=== PATIENT | female | born 1935 | race Caucasian/White ===

== ENCOUNTER → 2023-10-19 13:57 | Outpatient (REF) | payer MEDICARE, SELFPAY | LOC: HWRAD 13:57 | PROVIDERS: ATTENDING PHYSICIAN Physician Assistant; FAMILY PHYSICIAN Internal Medicine | DX: E04.1 Nontoxic single thyroid nodule (principal) | CPT/HCPCS: 76536 ==

== ENCOUNTER → 2023-11-04 09:05 | Outpatient (REF) | payer MEDICARE, SELFPAY ==
[2023-11-04 12:51] LABS: HDL Cholesterol 54 mg/dl; LDL Cholesterol, Calculated 105 mg/dl; Total Cholesterol 184 mg/dl (50-199); Triglyceride 128 mg/dl (10-149); Very Low Density Lipoprotein 25 mg/dl (0-30)
== END ==
LOC: HWLAB 09:05
PROVIDERS: ATTENDING PHYSICIAN Internal Medicine
DX: E11.69 Type 2 diabetes mellitus with other specified complication (principal)
CPT/HCPCS: 36415; 80061

== ENCOUNTER → 2023-12-01 08:51 | Outpatient (REF) | payer MEDICARE, SELFPAY ==
[2023-12-01 12:35] LABS: % Basophils 0.2 % (0-2); % Eosinophils 0.1 % (0-6); % Lymphocytes 12.8 % (20.5-51.1); % Monocytes 14.8 % (1.7-9.3); % Neutrophils 71.1 % (42.2-75.2); Absolute Immature Granulocytes 0.1 10^3/uL (0-0.05); Absolute Lymphocytes 1.1 10^3/uL (1.2-3.4); Absolute Monocytes 1.2 10^3/uL (0.1-0.6); Hematocrit 32.4 % (37.0-47.0); Hemoglobin 10.6 g/dL (12.0-16.0); Mean Corp Hgb Conc. 32.7 g/dL (33.0-37.0); Mean Corpuscular Hgb 28.4 pg (27.0-31.0); Mean Corpuscular Volume 86.9 fL (81.0-99.0); Mean Platelet Volume 13.5 fL (7.4-10.4); Nucleated Red Blood Cells % 0 %; Platelet Count 141 10^3/uL (130-400); Red Blood Cell Count 3.73 10^6/uL (4.20-5.40); Red Cell Dist. Width 15.1 % (11.5-14.5); White Blood Cell Count 8.4 10^3/uL (4.8-10.8)
[2023-12-01 13:30] LABS: ALT (SGPT) 18 U/L (0-35); AST (SGOT) 19 U/L (14-36); Albumin 3.6 g/dl (3.5-5.0); Alkaline Phosphatase 79 U/L (38-126); Blood Urea Nitrogen 27 mg/dl (7-17); Carbon Dioxide 25 mmol/L (22-30); Chloride 104 mmol/L (98-107); Glucose 139 mg/dl (70-99); Potassium 3.8 mmol/L (3.5-5.1); Sodium 134 mmol/L (135-145); Total Bilirubin 0.8 mg/dl (0.2-1.3); Total Protein 5.8 g/dl (6.3-8.2); eGFR 43.54
[2023-12-01 13:39] LABS: Free T3 3.55 pg/ml (2.77-5.27); Free T4 1.12 ng/dl (0.78-2.19)
[2023-12-01 13:53] LABS: TSH 4.41 uIU/ml (0.47-4.68)
[2023-12-03 01:40] LABS: Total T3 (Sendout) 105 ng/dL (80-200)
== END ==
LOC: HWLAB 08:51
PROVIDERS: ATTENDING PHYSICIAN Physician Assistant; FAMILY PHYSICIAN Internal Medicine
DX: E11.65 Type 2 diabetes mellitus with hyperglycemia (principal); E05.90 Thyrotoxicosis, unspecified without thyrotoxic crisis or storm
CPT/HCPCS: 36415; 80053; 83036; 84439; 84443; 84480; 84481; 85025

== ENCOUNTER → 2023-12-02 12:37 | Outpatient (REF) | payer MEDICARE, SELFPAY | LOC: WOUND 12:37 | PROVIDERS: ATTENDING PHYSICIAN Surgery; FAMILY PHYSICIAN Internal Medicine | DX: I70.233 Atherosclerosis of native arteries of right leg with ulceration of ankle (principal); L97.322 Non-pressure chronic ulcer of left ankle with fat layer exposed; I87.2 Venous insufficiency (chronic) (peripheral); I73.9 Peripheral vascular disease, unspecified; E11.22 Type 2 diabetes mellitus with diabetic chronic kidney disease; E11.59 Type 2 diabetes mellitus with other circulatory complications; N18.30 Chronic kidney disease, stage 3 unspecified; Z95.5 Presence of coronary angioplasty implant and graft; Z79.01 Long term (current) use of anticoagulants; I44.7 Left bundle-branch block, unspecified; Z79.4 Long term (current) use of insulin | CPT/HCPCS: 11042; 99204 ==

== ENCOUNTER → 2023-12-07 12:03 | Outpatient (REF) | payer MEDICARE, SELFPAY | LOC: WOUND 12:03 | PROVIDERS: ATTENDING PHYSICIAN Surgery; FAMILY PHYSICIAN Internal Medicine | DX: I70.233 Atherosclerosis of native arteries of right leg with ulceration of ankle (principal); L97.322 Non-pressure chronic ulcer of left ankle with fat layer exposed; I87.2 Venous insufficiency (chronic) (peripheral); E11.22 Type 2 diabetes mellitus with diabetic chronic kidney disease; E11.59 Type 2 diabetes mellitus with other circulatory complications; N18.30 Chronic kidney disease, stage 3 unspecified; I44.7 Left bundle-branch block, unspecified; Z95.5 Presence of coronary angioplasty implant and graft; Z79.01 Long term (current) use of anticoagulants; Z79.4 Long term (current) use of insulin | CPT/HCPCS: 99212 ==

== ENCOUNTER → 2023-12-14 13:03 | Outpatient (REF) | payer MEDICARE, SELFPAY | LOC: WOUND 13:03 | PROVIDERS: ATTENDING PHYSICIAN Surgery; FAMILY PHYSICIAN Internal Medicine | DX: I70.245 Atherosclerosis of native arteries of left leg with ulceration of other part of foot (principal); L97.322 Non-pressure chronic ulcer of left ankle with fat layer exposed; I87.2 Venous insufficiency (chronic) (peripheral); Z79.4 Long term (current) use of insulin; E11.22 Type 2 diabetes mellitus with diabetic chronic kidney disease; E11.59 Type 2 diabetes mellitus with other circulatory complications; I44.7 Left bundle-branch block, unspecified; N18.30 Chronic kidney disease, stage 3 unspecified; Z95.5 Presence of coronary angioplasty implant and graft; Z79.01 Long term (current) use of anticoagulants | CPT/HCPCS: 11042 ==

== ENCOUNTER 2023-12-15 10:07 | Emergency (ER) | payer MEDICARE, SELFPAY ==
[2023-12-15 10:15] VITALS: BP 131/48
--- NOTE | 2023-12-15 10:23 | ED.GENMED ---
History of Present Illness
General
Chief Complaint: Skin Problem
Source: patient
Exam Limitations: none
Time Seen by Provider: 12/15/23 10:11
Nursing documentation reviewed up to this point in time: agreed with
History of Present Illness
History of Present Illness:
Patient status post left ankle debridement at wound care center yesterday secondary to nonhealing ulcer started greater than 2 weeks ago, presents to ED secondary to persistent bleeding since being home yesterday. Patient reports mild weakness.
Denies dizziness or shortness of breath. Patient also is complaining of ongoing left lower leg pain. Patient has prescription to obtain outpatient ultrasound, which is not scheduled until next month. Denies direct trauma. Denies loss of
sensation or weakness. Patient is currently taking Eliquis daily, including this morning.
Past History
Past History
ED Past Medical History: Arrthythmia (afib), CAD, CHF, GERD, HTN, Hypercholesterolemia, IDDM, Other (peripheral vascular disease, hypertrophic cardiomyopathy,) and Other (Paroxysmal atrial fib, coronary disease status post OR status post stents, and
diabetes, hypertension, hypercholesterolemia)
ED Past Surgical History: Cardiac (Cardiac ablation) and Gynecological (LEANN/BSO)
Social History
Tobacco: Former smoker
Alcohol: None
Personal:
Living: alone
Employment: Retired
Family History
Family History: Diabetes and CAD
Review of Systems
Review of Systems
Allergies reviewed?: Yes
All Other Systems: ROS reviewed and negative except as documented in HPI and ROS
Constitutional: Reports no symptoms
Respiratory: Reports no symptoms; Denies trouble breathing
Cardiac: Denies chest pain
ABD/GI: Reports no symptoms
Musculoskeletal: Reports other (leg pain)
Skin: Reports other (skin ulcer)
Neurological: Reports no symptoms; Denies weakness or numbness
Phy Exam
Physical Exam
Physical Exam:
Physical Exam
General: mild painful distress, not acutely ill. afebrile
Head: nc/at. eomi
Neck: supple. normal range of motion.
Neuro: alert and oriented. no focal neurological deficits
Skin: an approx 2mm superficial ulcer above left medial malleolus with minimal bleeding along the margin, nonpulsatile. surrounding skin discoloration noted.
Psychiatric: well kept. interactive and cooperative
Extremities: no edema. no calf tenderness.
Course
Orders/Labs/Results
Orders:
Orders
12/15/23 10:22
US LE Arterial with Art. Brachial Index [ Periph Art LOWER Ext w DAVID] Urgent
Comment:
Reason For Exam: LLE discoloration with decreased pulse
12/15/23 10:54
Basic Metabolic Panel Urgent
Complete Blood Count/No Diff Urgent
PTT Urgent
Prothrombin Time Urgent
Abnormal Lab Results
12/15/23
10:54
RBC 3.39 L 10^6/uL
(4.20-5.40)
Hgb 9.5 L g/dL
(12.0-16.0)
Hct 28.8 L %
(37.0-47.0)
RDW 14.6 H %
(11.5-14.5)
Plt Count 129 L 10^3/uL
(130-400)
MPV 12.3 H fL
(7.4-10.4)
PT 22.3 H Sec
(11.4-14.6)
APTT 35.3 H Sec
(23.4-35.0)
BUN 23 H mg/dl
(7-17)
Glucose 194 H mg/dl
(70-99)
12/15/23 10:54
12/15/23 10:54
Vital Signs
Initial and Last Documented VS:
Initial Vital Signs
Temp Pulse Resp BP Pulse Ox
97.8 F 84 20 131/48 94
12/15/23 10:15 12/15/23 10:15 12/15/23 10:15 12/15/23 10:15 12/15/23 10:15
Last Documented Vital Signs
Temp Pulse Resp BP Pulse Ox
97.8 F 91 18 118/63 99
12/15/23 10:15 12/15/23 14:33 12/15/23 14:33 12/15/23 14:33 12/15/23 14:33
MDM/Problems Addressed
MDM/Problems Addressed:
Bleeding controlled with application of gelform and wrap. H/H stable. US art duplex completed. Advised continual f/u with wound care center. No evidence of infection at this time.
*Critical Care Note
Total Time (30-74mins, 75-104mins- exclusive of procedures): Not Applicable
ED Attending Note
-
Portions of this chart may have been created with voice recognition software.� Occasional wrong word or��sound alike� substitutions may have occurred due to the inherent limitations of voice recognition software.
Discharge Plan
Departure
Patient Disposition: Home (Routine Discharge)
Date of Disposition: 12/15/23
Time of Disposition: 14:22
Patient with high blood pressure during this ER visit?: Yes
Discharge Problem:
Skin ulcer
Instructions: Wound Care ([place]), [facility]
Prescriptions:
No Action
furosemide 40 MG tablet
40 mg PO DAILY
cyanocobalamin (vitamin B-12) 1,000 MCG tablet
1,000 mcg PO DAILY
pantoprazole 40 MG tablet,delayed release (DR/EC)
40 mg PO DAILY
methimazole 5 MG tablet
5 mg PO DAILY
insulin lispro [Humalog U-100 Insulin] 100 UNIT/ML solution
12 unit SC AC
propranolol 20 MG tablet
20 mg PO PRN PRN (Reason: 'heart' Palpitations )
cholecalciferol (vitamin D3) 1,000 UNITS tablet
1,000 units PO DAILY
insulin glargine [Lantus Solostar U-100 Insulin] 300 UNITS/3 ML insulin pen
23 units SC HS
melatonin 5 MG tablet
5 mg PO HS
tiotropium bromide [Spiriva Respimat] 1 PUFF mist
2 puff inhalation .EVERYOTHERDAY PRN (Reason: wheezing, sob)
apixaban [Eliquis] 5 MG tablet
5 mg PO BID
Lorazepam 0.5 MG Tablet
0.5 mg PO PRN PRN (Reason: Anxiety)
diltiazem HCl 120 MG capsule,extended release 24hr
120 mg PO DAILY
Referrals:
Zayda Asencio MD [Family Provider] -
Activity Restrictions/Additional Instructions:
As discussed, please continue to follow-up with wound care center for continual evaluation and treatment.
Interventions
Interventions:
*General Assessment Last Done: 12/15/23 10:44
*Neglect/Abuse Screening Last Done: 12/15/23 10:44
ED- Fall Risk Assessment Last Done: 12/15/23 10:44
*Nursing Disposition Last Done: 12/15/23 14:42
ED-Skin Assessment Last Done: 12/15/23 10:44
Discharge Date and Time
Discharge Date/Time: 12/15/23 14:42
Print Language: IRAQI
[2023-12-15 11:03] LABS: Hematocrit 28.8 % (37.0-47.0); Hemoglobin 9.5 g/dL (12.0-16.0); Mean Platelet Volume 12.3 fL (7.4-10.4); Platelet Count 129 10^3/uL (130-400); Red Blood Cell Count 3.39 10^6/uL (4.20-5.40); Red Cell Dist. Width 14.6 % (11.5-14.5); White Blood Cell Count 6.1 10^3/uL (4.8-10.8)
[2023-12-15 11:19] LABS: Blood Urea Nitrogen 23 mg/dl (7-17); Calcium 8.8 mg/dl (8.4-10.2); Carbon Dioxide 25 mmol/L (22-30); Chloride 107 mmol/L (98-107); Glucose 194 mg/dl (70-99); Potassium 3.5 mmol/L (3.5-5.1); Sodium 135 mmol/L (135-145); eGFR 54.19
[2023-12-15 11:24] LABS: INR 1.98; PT 22.3 Sec (11.4-14.6)
[2023-12-15 11:25] LABS: APTT 35.3 Sec (23.4-35.0)
[2023-12-15 14:33] VITALS: BP 118/63
== END 2023-12-15 14:42 | disposition home or self-care (01) ==
LOC: EMR 10:07
PROVIDERS: EMERGENCY PHYSICIAN Emergency Medicine; FAMILY PHYSICIAN Internal Medicine
DX: L98.491 Non-pressure chronic ulcer of skin of other sites limited to breakdown of skin (principal); R53.1 Weakness; M79.662 Pain in left lower leg; I25.10 Atherosclerotic heart disease of native coronary artery without angina pectoris; I48.0 Paroxysmal atrial fibrillation; I11.0 Hypertensive heart disease with heart failure; I50.9 Heart failure, unspecified; E11.51 Type 2 diabetes mellitus with diabetic peripheral angiopathy without gangrene; E78.00 Pure hypercholesterolemia, unspecified; I42.2 Other hypertrophic cardiomyopathy; K21.9 Gastro-esophageal reflux disease without esophagitis; I25.2 Old myocardial infarction; Z79.4 Long term (current) use of insulin; Z79.01 Long term (current) use of anticoagulants; Z98.890 Other specified postprocedural states; Z95.5 Presence of coronary angioplasty implant and graft; Z87.891 Personal history of nicotine dependence; Z88.1 Allergy status to other antibiotic agents; Z88.8 Allergy status to other drugs, medicaments and biological substances
CPT/HCPCS: 99284; 80048; 85027; 85610; 85730; 93922; 93925

== ENCOUNTER → 2023-12-21 13:01 | Outpatient (REF) | payer MEDICARE, SELFPAY | LOC: WOUND 13:01 | PROVIDERS: ATTENDING PHYSICIAN Surgery; FAMILY PHYSICIAN Internal Medicine | DX: I70.245 Atherosclerosis of native arteries of left leg with ulceration of other part of foot (principal); L97.322 Non-pressure chronic ulcer of left ankle with fat layer exposed; I87.2 Venous insufficiency (chronic) (peripheral); E11.22 Type 2 diabetes mellitus with diabetic chronic kidney disease; E11.59 Type 2 diabetes mellitus with other circulatory complications; N18.30 Chronic kidney disease, stage 3 unspecified; Z95.5 Presence of coronary angioplasty implant and graft; Z79.01 Long term (current) use of anticoagulants; I44.7 Left bundle-branch block, unspecified; Z79.4 Long term (current) use of insulin | CPT/HCPCS: 99213 ==

== ENCOUNTER → 2023-12-28 13:00 | Outpatient (REF) | payer MEDICARE, SELFPAY | LOC: WOUND 13:00 | PROVIDERS: ATTENDING PHYSICIAN Surgery; FAMILY PHYSICIAN Internal Medicine | DX: I70.245 Atherosclerosis of native arteries of left leg with ulceration of other part of foot (principal); L97.322 Non-pressure chronic ulcer of left ankle with fat layer exposed; I87.2 Venous insufficiency (chronic) (peripheral); E11.22 Type 2 diabetes mellitus with diabetic chronic kidney disease; E11.59 Type 2 diabetes mellitus with other circulatory complications; N18.30 Chronic kidney disease, stage 3 unspecified; I44.7 Left bundle-branch block, unspecified; Z79.01 Long term (current) use of anticoagulants; Z95.5 Presence of coronary angioplasty implant and graft; Z79.4 Long term (current) use of insulin | CPT/HCPCS: 99213 ==

== ENCOUNTER 2024-01-08 13:50 | Inpatient (IN) | payer MEDICARE, SELFPAY ==
[2024-01-08] VITALS (15 sets, daily range): BP systolic 108–141; BP diastolic 47–60; BMI 22.6; BMI 23.0
[2024-01-08 07:20] LABS: Hematocrit 35.2 % (37.0-47.0); Hemoglobin 11.3 g/dL (12.0-16.0); Mean Corp Hgb Conc. 32.1 g/dL (33.0-37.0); Mean Corpuscular Hgb 27.3 pg (27.0-31.0); Mean Platelet Volume 12.9 fL (7.4-10.4); Platelet Count 151 10^3/uL (130-400); Red Blood Cell Count 4.14 10^6/uL (4.20-5.40); Red Cell Dist. Width 14.7 % (11.5-14.5); White Blood Cell Count 7.6 10^3/uL (4.8-10.8)
[2024-01-08 07:27] LABS: INR 1.21; PT 15.4 Sec (11.4-14.6)
[2024-01-08 07:28] LABS: APTT 36.3 Sec (23.4-35.0)
[2024-01-08 07:29] LABS: Blood Urea Nitrogen 29 mg/dl (7-17); Calcium 9.1 mg/dl (8.4-10.2); Carbon Dioxide 30 mmol/L (22-30); Chloride 101 mmol/L (98-107); Estimated Creatinine Clearance 30 ml/min; Glucose 180 mg/dl (70-99); Potassium 4.3 mmol/L (3.5-5.1); Sodium 136 mmol/L (135-145); eGFR 43.54
--- NOTE | 2024-01-08 08:08 | W.SUR.PREOP ---
Pre-Operative Surgical Note
-
I have examined this patient prior to the performance of the scheduled procedure.
The patient's condition is unchanged from the time of the current History and
Physical and the patient is able to undergo the scheduled procedure.
--- NOTE | 2024-01-08 10:14 | PHA.VAN.IN ---
Assessment
- Assessment
Renal Function: Appears similar to baseline
Concomitant Antimicrobials: piperacilln/tazo
AUC Dosing Plan
- Empiric Dosing
Initial / Loading Dose: 1000 mg x 1 dose - administration pending
Maintenance Regimen: dose by random level
Plan
- Plan
Monitoring: random level ordered AM 01/09/24
Pharmacokinetics Vancomycin I
- -
Patient Age: 88
Patient Sex: Female
Vancomycin Day #: 1
Indication: Skin And Soft Tissue
Requesting Provider: Shira Rivas
Height / Weight:
Height 5 ft 6 in
Actual Weight 63.4 kg
Pertinent Past Medical History: lower exxtremity angiogram 01/07/24
- Vital Signs / Lab Results
Temp Pulse Resp BP Pulse Ox
98.5 F 87 17 141/52 100
01/08/24 07:21 01/08/24 07:21 01/08/24 07:21 01/08/24 07:21 01/08/24 07:21
Lab Results - Hematology
01/08/24
07:03
WBC 7.6
Lab Results - Chemistry
01/08/24
07:03
BUN 29 H
Creatinine 1.2 H
Estimated Creat Clear 30
[2024-01-08 10:23] LABS: ACT-LR - POC 211 Seconds (116-155)
[2024-01-08] MEDS: ZOSYN IV (10:44)
[2024-01-08 11:33] LABS: ACT-LR - POC 219 Seconds (116-155)
--- NOTE | 2024-01-08 12:07 | W.PV.INTER ---
VPI Note
Pre Admission Note
Functional Status: Self Care
Ambulation: Ambulate with Prosthesis
Pre Op Medications
Pre Op ASA: No
Pre Op Statin: No, for Medical Reason
Pre Op JENNIFER Inhibitor/ARB: No
Pre Op P2y12 Antagonist: None
Pre Op Beta Blockers: No
Pre Op Chronic Anticoagulant: Apixaban
Pre Op Cilostazol: No
Post Op Medications
Post Op ASA: Yes
Post Op Statin: No, for Medical Reason
Post Op JENNIFER Inhibitor/ARB: No
Post Op P2y12 Antagonist: None
Post Op Beta Blockers: No
Post Op Chronic Anticoagulant: Apixaban
Post Op Cilostazol: No
[2024-01-08 12:46] LABS: Glucose - Point of Care 195 mg/dl (70-99)
--- NOTE | 2024-01-08 12:58 | W.IMMPOSTOP ---
Surgical Immed Post Op Note
-
Primary Surgeon: Dr. Low Lee III, MD
Assisting Surgeon: Dr. John Chu MD, PhD (PGY-1)
Pre-op Diagnosis: Critical limb threatening ischemia of the left lower extremity
Post-op Diagnosis: Critical limb threatening ischemia of the left lower extremity
Procedure Performed: diagnostic arteriogram, intravascular lithotripsy, balloon angioplasty
Anesthesia Type: MAC
Specimen / Cultures: None
Estimated Blood Loss: Minimal
Complications: None
Operative Findings: The patient was brought to the operating room. She was placed in the supine position, bilateral groins were prepped, and she was draped in usual sterile fashion. Ultrasound guidance was used to identify the right common femoral
artery. The superior and inferior margins of the femoral head were identified and marked at the skin level with assistance from radiography. Local anesthetic was injected and a micropuncture kit was used to gain vascular access to the right common
femoral artery. This was upsized to a 5 luxembourger sheath over a Bentson wire. After flushing the sheath, a robledo's hook was advanced into the sheath along with a glidewire. Access to the contralateral (left) ilio-femoral system was gained using the
quickcross system. Angiography was performed and showed significant occlusive disease in the left tibioperoneal trunk. Attempts were made to cross the lesion but were unsuccessful. The decision was made to access the site retrograde through the
distal posterior tibial artery of the left foot. Micropuncture kit was used to access the posterior tibial artery of the left foot and a 4 luxembourger sheath was advanced over a [place] wire. A wire was advanced past the lesion in a retrograde fashion. A
snare catheter was used to snare the retrograde wire and bring it proximally through the right common femoral access site/sheath. Intravascular lithotripsy was performed, dilating the lesion to 4 and 6 ceci of pressure. Following intravascular
lithotripsy and balloon angioplasty, anteriogram showed patency of the left tibioperoneal trunk with distal run off into the anterior tibial artery (which was not present initially). At the conclusion of the procedure, both the distal posterior
tibial artery sheath and the right common femoral artery sheath were removed and manual pressure was held for 20 minutes. Doppler signals were identified in the left DP and PT sites. Pressure dressing was applied to the left PT sheath site.
Xeroform, gauze, kerlix, and lenora wrap were applied to the preexisting wound on the medial aspect of the left ankle. The patient was transported to PACU in stable condition.
[2024-01-08] MEDS: DILAUDID 0.25 MG IV (13:05)
[2024-01-08] MEDS: NSS 1000 IV (13:08)
[2024-01-08] MEDS: LOW STRENGTH ASPIRIN 81 MG PO (13:11)
--- NOTE | 2024-01-08 13:31 | OR.RPT ---
Operative Report
Operative Report
Date of Operation: 01/08/2024
Pre Op Diagnosis: Critical limb threatening ischemia, left lower extremity manifested by ischemic rest pain and nonhealing wound.
Post Op Diagnosis: Critical limb threatening ischemia, left lower extremity manifested by ischemic rest pain and nonhealing wound.
Procedure:
1.) Intravascular lithotripsy to left tibioperoneal trunk occlusion (3.5 mm x 60 mm M5+ Shockwave balloon)
2.) Diagnostic aortobiiliac arteriogram
3.) Diagnostic left lower extremity arteriogram
4.) Ultrasound-guided percutaneous retrograde left posterior tibial artery access for endovascular intervention
5.) Ultrasound-guided percutaneous right common femoral artery access
Surgeon: Low eLe III, MD
Gravel Truck Driver: John Chu MD PhD, PGY1
Anesthesia: Sedation with local
Fluoroscopy:
80.1 min
270 mGy
37.01 Gy.cm2
Complications: None
Estimated Blood Loss: 50 cc
History and Indications for Procedure: 88-year-old female with multiple medical comorbidities and critical limb threatening ischemia of her left lower extremity manifested by severe ischemic rest pain and a nonhealing wound.
Procedure in Detail: Cookie Castellano was correctly identified and placed supine on the operating table. After adequate induction of anesthesia the bilateral groins were prepped and draped in the usual sterile fashion. A timeout was performed with the
nursing and anesthesia staff confirming the patient's identity as well as the nature and laterality of the procedure.
The right common femoral artery was identified under ultrasound guidance. The artery was patent. The superior and inferior aspects of the femoral head were identified with radiographic guidance and marked at the skin level. The proposed puncture
site was infiltrated with local anesthesia. We saved a copy of the ultrasound image to the medical record. Under ultrasound guidance we accessed the right common femoral artery with a micropuncture needle and upsized to a 5 Fr sheath over a Microtaskson
wire. The wire and a ShepherPact Apparel hook flush catheter were advanced into the distal abdominal aorta and a diagnostic aorto-biiliac arteriogram was performed:
AORTO-ILIAC ARTERIOGRAM:
Aorta: Peripherally calcified diffusely. Patent with no significant stenosis identified
Right common iliac artery: Patent stent with no significant stenosis identified
Right external iliac artery: Patent with no significant stenosis identified
Left common iliac artery: Patent stent with no significant stenosis identified
Left external iliac artery: Patent with no significant stenosis identified
Under roadmap guidance using a Glidewire and the SheLearning HyperdriveerPact Apparel hook catheter we selected the left common iliac artery and then the external iliac artery. A catheter was tracked up and over the aortic bifurcation and placed in the distal external iliac
artery. A diagnostic left lower extremity arteriogram was then performed which demonstrated the following:
LEFT LOWER EXTREMITY:
Common femoral artery: Patent with no significant stenosis identified
Profunda femoral artery: Patent with no significant stenosis identified
Superficial femoral artery: Patent with brisk flow. Scattered areas of mild to moderate stenosis identified.
Popliteal artery: Patent. Areas of mild to moderate stenosis identified
Anterior tibial artery: Occluded
Tibioperoneal trunk: Occluded
Peroneal artery: Reconstituted proximally via collaterals. Single patent tibial artery.
Posterior tibial artery: Occluded. Reconstituted distally at the ankle via posterior peroneal collaterals
ENDOVASCULAR INTERVENTION: Systemic heparin was administered. Selected the left superficial femoral artery with the Glidewire and Quickcross catheter. Exchanged out for a 5 Fr 70 cm sheath over a StorHappy Cosas wire. Selected the popliteal artery under
roadmap guidance with Quickcross catheter and glidewire. Under roadmap guidance and magnification view I attempted to cross the tibioperoneal trunk occlusion antegrade. I used both a 0.035 and 0.014 system and could not cross the TPT occlusion
from this approach. I therefore made the decision to attempt a retrograde approach.
The left foot and ankle were prepped and draped in the usual sterile fashion. Local anesthesia was infiltrated into the proposed puncture site. Under ultrasound guidance I identified the posterior tibial artery just distal to the medial malleolus.
Under ultrasound guidance I accessed the posterior tibial artery in a retrograde fashion with a short micropuncture needle. I then upsized to a 4 Lebanese sheath over a NoveltyLab wire. Using a 0.014 wire and 0.014 Quickcross catheter I was able to
cross the tibioperoneal trunk occlusion. The wire and catheter were advanced retrograde into the popliteal artery and an arteriogram confirmed proper position within the true lumen. I then inserted a 4 Lebanese snare up and over from the 5 Lebanese
sheath in the right groin. The retrograde 0.014 wire was snared and then pulled out through the 5 Lebanese sheath in the groin thereby establishing up and over femoral/tibial wire access.
Due to the heavily calcified nature of the tibioperoneal trunk arterial disease and in an effort to modify the calcium to achieve maximum luminal gain with endovascular intervention I elected to proceed with intravascular lithotripsy. A 3.5 mm x 60
mm M5+ Shockwave balloon was placed across the tibioperoneal trunk occlusion under roadmap guidance. Alternating rounds of lithotripsy pulse delivery at sub-nominal pressure and angioplasty at nominal pressure was performed across the stenosis. In
between rounds of pulse delivery and angioplasty the balloon was deflated and repositioned under roadmap guidance. All 300 pulses were delivered.
COMPLETION ARTERIOGRAM: Excellent technical result. Widely patent tibioperoneal trunk with brisk flow, no extravasation and no flow-limiting dissection. Intact peroneal artery outflow to the ankle. The 4 Lebanese sheath was occluding the the
posterior tibial artery outflow. Anterior branches from the peroneal artery provided flow into the dorsal aspect of the foot
Satisfied with this result we concluded the procedure. The sheath tip was pulled back into the right external iliac artery. Protamine was administered. The 5 Lebanese right femoral sheath and the left posterior tibial artery 4 Lebanese sheath were
pulled. Direct manual pressure was held over the puncture sites. Hemostasis was achieved.
The patient tolerated the procedure well and was taken to the recovery area in stable condition.
Attestation: I was present and responsible for the entire procedure.
Signed:
Low Lee III, MD
[facility] Vascular Surgery
[phone] (cell)
--- NOTE | 2024-01-08 13:58 | WOUNDNOTE ---
LEFT LOWER LEG WOUND
--- NOTE | 2024-01-08 14:02 | WOUNDNOTE ---
[facility] RN note: Patient admitted with s/p left leg arteriogram and left medial leg chronic wound
See H&P for complete history.
Wound Location and type/assessment: Patient admitted with: Left leg medial chronic wound. This customs entry writer visited patient in PACU s/p arteriogram. Per nursing report, leg wound draining large amounts prior to procedure. Skin is macerated and fragile
from ankle to mid calf. Venous appearing wound is pink, with some yellow slough. Proximal to venous wound is scabbed and superficial. Patient unable to provide details at time of assessment.
Appetite: Unknown
Pressure redistribution devices in place: Versa Care Air ordered as patient will be admitted to [facility] after PACU.
Plan: Protect fragile skin surrounding wound with skin prep and BID dressing changes. Local wound care with Xeroform, alginate, ABD and alejandro. Air mattress ordered.
Will confirm orders with hospitalist and update nurse. Updated care plan and will follow as needed.
[2024-01-08] MEDS: SPIRIVA RESPIMAT 2.5 MCG INH (15:12)
--- NOTE | 2024-01-08 15:34 | PTCARENOTE ---
Patient admitted from pacu post arteriogram intravascular lithotripsy with balloon angioplasty.The patient comes from home with a non healing wound on her left lower leg and was first seen in the emergency room.Patient is alert and oriented and
rates her pain at a 4 out of 10.All dressings are dry and intact without drainage.There are dressings in the right groin,left ankle and left lower leg.Bilateral dp pulses are present with doppler.The PT pulse is present by doppler on the left
however you can't get it on the right due to significant edema.The patient is in her bed with the call hidalgo in reach.
--- NOTE | 2024-01-08 16:45 | CM ---
Addendum entered by Taco Meehan 01/08/24 16:58:
Received text from PROPAGATION WORKER: Patient's pain has improved since arteriogram procedures today. Will now most likely be discharged to home with [facility] wound care. Final discharge Plan of Care still to be determined.
Addendum entered by Taco Meehan 01/08/24 16:51:
Received text from PROPAGATION WORKER: Patient's pain has improved since
Original Note:
PATIENT ADMITTED TODAY. CM CONSULT FOR DISCHARGE PLANNING. LIVES ON 2ND FLOOR WITH NO ELEVATOR AND LIKELY LE AMPUTATION THIS ADMISSION. CM will continue to follow.
[2024-01-08 17:41] LABS: Glucose - Point of Care 224 mg/dl (70-99)
[2024-01-08] MEDS: ZOSYN 50 IV ×2 (18:06→22:32)
[2024-01-08] MEDS: SPIRIVA RESPIMAT 2.5 MCG 2 PUFF INH (20:14)
[2024-01-08] MEDS: HEPARIN 5000 UNITS SC (20:26)
[2024-01-08 21:48] LABS: Glucose - Point of Care 382 mg/dl (70-99)
[2024-01-08] MEDS: CARDIZEM CD 120 MG PO (21:56)
[2024-01-08] MEDS: LANTUS 0.200000000000000011 UNITS SC (21:57)
[2024-01-08] MEDS: LIORESAL 10 MG PO (22:32)
[2024-01-09 00:22] LABS: Glucose - Point of Care 292 mg/dl (70-99)
[2024-01-09 03:40] VITALS: BP 128/63
[2024-01-09] MEDS: ZOSYN 50 IV ×2 (04:02→12:03)
--- NOTE | 2024-01-09 07:02 | W.PN.VS ---
Addendum entered and electronically signed by Tal Jackson MD 01/09/24 10:57:
Seen and examined. Agree with findings as noted below. Patient reporting intermittent left lateral calf pain/cramping. Different from preoperative discomfort. She feels it is just a cramp. No foot pain. On exam right groin puncture site flat,
no hematoma. Left calf is fully soft. Compartments are all soft. Anterior/lateral compartments with tenderness to palpation (mild to moderate) but compartments all soft. No evidence of hematoma. Foot is warm. Plan/as discussed and noted
below. Likely discharge with home care.
Addendum entered and electronically signed by PRESTON Camacho 01/09/24 07:50:
Discussed with Dr. Jackson who was operating at another hospital this morning, we are in agreement with plan. Patient is aware that she may wait to see him later today before discharge but she prefers to go home once home care is set up. Dr. Jackson aware
Original Note:
Today's Communication / Plan
-
Discussed with Dr. Jackson
Assessment/Plan
-
POD 1 Intravascular lithotripsy to left tibioperoneal trunk occlusion (3.5 mm x 60 mm M5+ Shockwave balloon)
Diagnostic aortobiiliac arteriogram
Diagnostic left lower extremity arteriogram
Ultrasound-guided percutaneous retrograde left posterior tibial artery access for endovascular intervention
Ultrasound-guided percutaneous right common femoral artery access
Plan:
-Case management for visiting nurse/home wound care
-Continue aspirin
-Keflex for cellulitis
-Resume Eliquis
-Okay for DC from vascular standpoint once VN is set up
Subjective Data
-
Date of Service: January 09, 2024
Patient seen at bedside this a.m. Patient offers no complaints at this time, patient had no use for pain medications overnight. No events overnight
Objective Data
-
Vital Signs
Temp Pulse Resp BP Pulse Ox
98.7 F 92 20 128/63 93
01/09/24 03:40 01/09/24 03:40 01/09/24 03:40 01/09/24 03:40 01/09/24 03:40
Intake and Output
01/08/24 01/09/24 01/10/24
06:59 06:59 06:59
Intake Total 310 / 310
Balance 310 / 310
Intake:
Oral fluids 50 / 50
IV fluids (Total) 260 / 260
NSS 260 / 260
Other:
Number of approximated SMALL 1
amounts of urine
Calcium 9.1 mg/dl (8.4-10.2) 01/08/24 07:03
Physical Exam
-
AAOx3
No tachypnea
No tachycardia
Abdomen soft
Groin and ankle access sites clean dry and intact, soft
Left ankle wound site and cellulitis improved today- redressed
DP and PT Doppler signals present
[2024-01-09 07:05] VITALS: BP 111/37
--- NOTE | 2024-01-09 07:05 | W.DS.TRANS ---
DC Summary - B2B Sales Representative
-
Discharge Instructions:
Discharge Diagnosis/Procedures TP trunk intravascular lithotripsy
Diet No restrictions
Activity No strenuous activity
Driving Restrictions As prior to admission
Bathing Restrictions OK to Shower
Others Tests Ultrasound- office will schedule
Wound Care BID Local wound care with Xeroform, alginate,
ABD and alejandro
Instructions:
Stand-Alone Forms: DC Instr - Vascular OR
Changes to Home Medications: No
Discharge Medications:
DC Medications w/original date entered in [facility]
apixaban 5 mg tablet (Eliquis) 5 mg PO BID Blood clot prevention/tx 12/02/21
cholecalciferol (vitamin D3) 25 mcg (1,000 unit) tablet 1,000 units PO DAILY Supplement 12/02/21
cyanocobalamin (vitamin B-12) 1,000 mcg tablet 1,000 mcg PO DAILY Supplement 12/02/21
furosemide 40 mg tablet 40 mg PO DAILY Fluid retention/Swelling 12/02/21
insulin glargine 100 unit/mL (3 mL) subcutaneous pen (Lantus Solostar U-100 Insulin) 20 units SC HS Diabetes 12/02/21
insulin lispro 100 unit/mL subcutaneous solution (Humalog U-100 Insulin) 11 - 13 unit SC AC Diabetes 12/02/21
methimazole 5 mg tablet 5 mg PO DAILY Thyroid 12/02/21
pantoprazole 40 mg tablet,delayed release 40 mg PO DAILY Gastrointestinal issue 12/02/21
propranolol 20 mg tablet 20 mg PO PRN PRN 'heart' Palpitations 12/02/21
tiotropium bromide 2.5 mcg/actuation mist for inhalation (Spiriva Respimat) 2 puff inhalation QPM wheezing, sob 12/02/21
diltiazem HCl 120 mg capsule,extended release 24 hr 120 mg PO HS Heart disease/condition 12/03/21
Nervive Nerve Relief 1 tab PO HS Supplement 01/06/24
baclofen 10 mg tablet 10 mg PO HS 01/06/24
ferrous sulfate 325 mg (65 mg iron) tablet (iron) 325 mg PO DAILY Supplement 01/06/24
lorazepam 0.5 mg tablet 0.5 mg PO PRN PRN anxiety 01/06/24
vit C 250 mg-vit E 90 mg-zinc 40 mg-copper 1 [id number] capsule (PreserVision AREDS-2) 1 tab PO BID Supplement 01/06/24
aspirin 81 mg chewable tablet (Children's Aspirin) 81 mg PO DAILY #90 tabs 01/08/24
cephalexin 500 mg capsule 500 mg PO Q6H 7 days #28 caps 01/08/24
levalbuterol tartrate 45 mcg/actuation aerosol inhaler 1 puff inhalation Q6H PRN shortness of breath 01/08/24
Home Medication Changes
Added
aspirin 81 mg chewable tablet (Children's Aspirin) 81 mg PO DAILY #90 tabs 01/08/24
cephalexin 500 mg capsule 500 mg PO Q6H 7 days #28 caps 01/08/24
Pending Results: No
[2024-01-09 07:11] LABS: Hematocrit 31.9 % (37.0-47.0); Hemoglobin 10.2 g/dL (12.0-16.0); Mean Corpuscular Hgb 27.3 pg (27.0-31.0); Mean Corpuscular Volume 85.3 fL (81.0-99.0); Mean Platelet Volume 13.3 fL (7.4-10.4); Platelet Count 136 10^3/uL (130-400); Red Blood Cell Count 3.74 10^6/uL (4.20-5.40); Red Cell Dist. Width 14.6 % (11.5-14.5); White Blood Cell Count 8.4 10^3/uL (4.8-10.8)
[2024-01-09 07:17] LABS: INR 1.21; PT 15.2 Sec (11.4-14.6)
[2024-01-09 07:18] LABS: APTT 35.5 Sec (23.4-35.0)
[2024-01-09 07:25] LABS: Vancomycin Random 7.4 ug/ml
[2024-01-09 07:38] LABS: Blood Urea Nitrogen 28 mg/dl (7-17); Calcium 8.6 mg/dl (8.4-10.2); Carbon Dioxide 23 mmol/L (22-30); Chloride 105 mmol/L (98-107); Estimated Creatinine Clearance 30 ml/min; Glucose 217 mg/dl (70-99); Potassium 4.7 mmol/L (3.5-5.1); Sodium 136 mmol/L (135-145); eGFR 43.54
[2024-01-09 07:53] LABS: Glucose - Point of Care 214 mg/dl (70-99)
[2024-01-09] MEDS: LASIX 40 MG PO (08:20)
[2024-01-09] MEDS: PROTONIX 40 MG PO (08:20)
[2024-01-09] MEDS: FEOSOL 325 MG PO (08:20)
[2024-01-09] MEDS: HEPARIN 5000 UNITS SC (08:21)
[2024-01-09] MEDS: VITAMIN D3 (cholecalciferol) 25 MCG PO (08:21)
[2024-01-09] MEDS: TAPAZOLE 5 MG PO (08:21)
[2024-01-09] MEDS: VITAMIN B-12 1000 MCG PO (08:21)
[2024-01-09] MEDS: LOW STRENGTH ASPIRIN 81 MG PO (08:21)
[2024-01-09] MEDS: NOVOLOG FLEXPEN-LOW RESISTANCE 2 UNITS SC (08:33)
--- NOTE | 2024-01-09 08:58 | PHA.VAN.FU ---
Vancomycin Assessment / Plan
- Assessment
Renal Function: Stable
WBC's are: WNL
In the past 24 hrs, patient has been: Afebrile
Concomitant Antimicrobials: pip/tazo
- Assessment - Therapeutic Drug Monitoring
Random Level: 7.4 ~ 19 hours after 1000 mg dose yesterday
- Dosing Plan
Continue: dosing by random till discharge - discharge scheduled for today
Dosing by Level: Re-dose today (1000 mg x 1 dose)
- Monitoring Plan
No level(s) ordered at this time: pt to be discharged today
- Follow Up
Pharmacy will continue to follow.
Vancomycin Follow UP
- -
Patient Age: 88
Patient Sex: Female
Vancomycin Day #: 2
Indication: Skin And Soft Tissue
Requesting Provider: Shira Rivas
Height / Weight:
Height 5 ft 6 in
Actual Weight 64.637 kg
Pertinent Past Medical History: lower exxtremity angiogram 01/07/24
- Vital Signs / Lab Results
Temp Pulse Resp BP Pulse Ox
98.1 F 86 18 111/37 96
01/09/24 07:05 01/09/24 07:05 01/09/24 07:05 01/09/24 07:05 01/09/24 07:05
Lab Results - Hematology
01/08/24 01/09/24
07:03 05:59
WBC 7.6 8.4
Lab Results - Chemistry
01/08/24 01/09/24
07:03 05:59
BUN 29 H 28 H
Creatinine 1.2 H 1.2 H
Estimated Creat Clear 30 30
Therapeutic Drug Monitoring
Random Vancomycin 7.4 ug/ml 01/09/24 05:58
--- NOTE | 2024-01-09 09:53 | CM ---
CM following re: discharge planning.
Reviewed pt's chart, met with pt.
Pt is an 88 year old female, admitted with primary dx of POD 1 Intravascular lithotripsy to left tibioperoneal trunk occlusion.
Pt reports she lives alone in an apartment 2nd floor, 14 steps to enter, has no children, has a sister who lives in [place]. Pt reports she ambulates with a walker and has supportive friend Angela.
Discharge order noted. Pt is aware, expressed her agreement with discharge. IMM reviewed, placed in chart, pt has a copy.
CM consult to arrange VN services noted. CM discussed it with pt, pt expressed her agreement. A list of VN vendors provided to the pt. Pt preferred [facility]. A referral to VN made.
PCP: Zayda Asencio
Pharmacy: [facility]
Please fax discharge instructions to [facility] at [phone]
D/C plan: home with VN. Friend Angela to transport.
No other discharge needs identified.
[2024-01-09] MEDS: VANCOCIN 200 IV (10:42)
[2024-01-09] MEDS: FLUSH (NSS) 1 FLUSH IV (10:46)
[2024-01-09] MEDS: ZOSYN IV (11:17)
[2024-01-09 11:20] VITALS: BP 122/59
[2024-01-09 12:08] LABS: Glucose - Point of Care 323 mg/dl (70-99)
[2024-01-09] MEDS: NOVOLOG FLEXPEN-LOW RESISTANCE 4 UNITS SC (12:10)
--- NOTE | 2024-01-12 14:13 | W.DCSUMMARY ---
Discharge Summary
Discharge Data
Date of Admission: 01/08/24
Date of Discharge: 01/09/24
-
Pending Results: No
Hospital Course
Attending: Low Lee III, MD
Consultants: Wound Care , Case management
Allergies: Statin, ofirmev, dabigatran, doxycycline, gabapentin, magnesium, nifedipine, tetracycline
Procedure with date: 01/08/2024
1.) Intravascular lithotripsy to left tibioperoneal trunk occlusion (3.5 mm x 60 mm M5+ Shockwave balloon)
2.) Diagnostic aortobiiliac arteriogram
3.) Diagnostic left lower extremity arteriogram
4.) Ultrasound-guided percutaneous retrograde left posterior tibial artery access for endovascular intervention
5.) Ultrasound-guided percutaneous right common femoral artery access
History of present illness: The patient is an 88-year-old female with multiple medical conditions including: hypertension,hyperlipidemia, hypothyroidism, DM, COPD, atrial flutter, peripheral arterial disease, [place], and CKD . Patient presented on
01/08/2024 for scheduled procedure with Dr. Lee. Patient presented at baseline health with no reports of recent illness or trauma.
Hospital Course: Briefly, the patient underwent scheduled arteriogram without complications, and recovered in PACU. Following recovery phase one and two patient was transferred to medical/surgical floor for continued monitoring. Wound care consulted
to aid in management of chronic wound. Case management consulted for home wound care/visiting nurse establishment. POD #1 (01/09/2024) Patient reports vast improvement to near resolution of rest pain at left foot.
neurologically intact, face symmetrical, and tolerating PO diet. Right/left neck surgical incision clean, dry, and intact with suture line well approximated and soft. No evidence of hematoma at right puncture site. Patient stable for discharge to
home.
Prescriptions and follow up appointment are included in the DC summary genetic supervisor note. All instructions were given to the patient in both written and verbal form and the patient expressed understanding.
Discharge Plan
-
Patient Disposition: Home with Home Care
Discharge Diagnosis/Procedures: TP trunk intravascular lithotripsy
Condition: Good
Diet: No restrictions
Activity: No strenuous activity
Driving Restrictions: As prior to admission
Bathing Restrictions: OK to Shower
Others Tests: Ultrasound- office will schedule
Wound Care: BID Local wound care with Xeroform, alginate, ABD, alejandro and gentle lenora
Stand Alone Forms: DC Instr - Vascular OR
Referrals:
Zayda Asencio MD [Family Provider] -
Low Lee III, MD [Active] - (Vascular office will call you with your appointment time*)
Prescriptions:
New
aspirin [Children's Aspirin] 81 mg Tablet,Chewable
81 mg PO DAILY Qty: 90 0RF
cephalexin 500 mg capsule
500 mg PO Q6H 7 Days Qty: 28 0RF
Continued
furosemide 40 MG tablet
40 mg PO DAILY
cyanocobalamin (vitamin B-12) 1,000 MCG tablet
1,000 mcg PO DAILY
pantoprazole 40 MG tablet,delayed release (DR/EC)
40 mg PO DAILY
methimazole 5 MG tablet
5 mg PO DAILY
insulin lispro [Humalog U-100 Insulin] 100 UNIT/ML solution
11 - 13 unit SC AC
Rx Instructions:
sliding scale
propranolol 20 MG tablet
20 mg PO PRN PRN (Reason: 'heart' Palpitations )
cholecalciferol (vitamin D3) 1,000 UNITS tablet
1,000 units PO DAILY
insulin glargine [Lantus Solostar U-100 Insulin] 300 UNITS/3 ML insulin pen
20 units SC HS
Rx Instructions:
took 10 units
Spiriva Respimat 1 PUFF mist
2 puff inhalation QPM
Eliquis 5 MG tablet
5 mg PO BID
diltiazem HCl 120 MG capsule,extended release 24hr
120 mg PO HS
lorazepam 0.5 mg Tablet
0.5 mg PO PRN PRN (Reason: anxiety)
baclofen 10 mg Tablet
10 mg PO HS
ferrous sulfate [iron] 325 mg (65 mg iron) Tablet
325 mg PO DAILY
PreserVision AREDS-2 250-90-40-1 mg Capsule
1 tab PO BID
Nervive Nerve Relief
1 tab PO HS
levalbuterol tartrate 45 mcg/actuation Hfa Aerosol Inhaler
1 puff INHALATION Q6H PRN (Reason: shortness of breath )
Discharge Orders:
Discharge Patient (As Directed); Ordered 01/09/24
Ordered By: Eneida Maravilla
Discharge Date and Time
Discharge Date/Time: 01/09/24 13:55
Print Language: YAKUT
== END 2024-01-09 13:55 | disposition home health service (06) | DRG 279 ==
LOC: 2 SOUTH 13:50
PROVIDERS: Nurse Practitioner; ADMITTING PHYSICIAN Surgery Vascular Surgery; FAMILY PHYSICIAN Internal Medicine
PROC: B41G1ZZ Fluoroscopy of Left Lower Extremity Arteries using Low Osmolar Contrast (ICD-10-PCS; 2024-01-08)
PROC: B4101ZZ Fluoroscopy of Abdominal Aorta using Low Osmolar Contrast (ICD-10-PCS; 2024-01-08)
PROC: B41C1ZZ Fluoroscopy of Pelvic Arteries using Low Osmolar Contrast (ICD-10-PCS; 2024-01-08)
PROC: 04FN3ZZ Fragmentation of Left Popliteal Artery, Percutaneous Approach (ICD-10-PCS; 2024-01-08)
DX: E11.51 Type 2 diabetes mellitus with diabetic peripheral angiopathy without gangrene (principal); L97.329 Non-pressure chronic ulcer of left ankle with unspecified severity; I48.92 Unspecified atrial flutter; I70.243 Atherosclerosis of native arteries of left leg with ulceration of ankle; I77.1 Stricture of artery; E03.9 Hypothyroidism, unspecified; N18.9 Chronic kidney disease, unspecified; E11.22 Type 2 diabetes mellitus with diabetic chronic kidney disease; I12.9 Hypertensive chronic kidney disease with stage 1 through stage 4 chronic kidney disease, or unspecified chronic kidney disease; J44.9 Chronic obstructive pulmonary disease, unspecified; E78.5 Hyperlipidemia, unspecified; I25.2 Old myocardial infarction; Z79.4 Long term (current) use of insulin; Z79.01 Long term (current) use of anticoagulants
CPT/HCPCS: 75625; 75716; 76937; 80048; 80202; 82962; 85027; 85610; 85730; 93005; 94640; C1769; C1773; C1887; C1894; C9772; Q9967

== ENCOUNTER → 2024-01-13 14:08 | Outpatient (REF) | payer MEDICARE, SELFPAY | LOC: RAD 14:08 | PROVIDERS: ATTENDING PHYSICIAN Surgery Vascular Surgery; FAMILY PHYSICIAN Internal Medicine | DX: I73.9 Peripheral vascular disease, unspecified (principal); I87.2 Venous insufficiency (chronic) (peripheral) | CPT/HCPCS: 93922; 93925; 93971 ==

== ENCOUNTER → 2024-01-15 09:57 | Outpatient (REF) | payer MEDICARE, SELFPAY | LOC: WOUND 09:57 | PROVIDERS: ATTENDING PHYSICIAN Surgery; FAMILY PHYSICIAN Internal Medicine | DX: I70.245 Atherosclerosis of native arteries of left leg with ulceration of other part of foot (principal); L97.322 Non-pressure chronic ulcer of left ankle with fat layer exposed; I87.2 Venous insufficiency (chronic) (peripheral); E11.22 Type 2 diabetes mellitus with diabetic chronic kidney disease; E11.59 Type 2 diabetes mellitus with other circulatory complications; N18.30 Chronic kidney disease, stage 3 unspecified; I44.7 Left bundle-branch block, unspecified; L88 Pyoderma gangrenosum; Z95.5 Presence of coronary angioplasty implant and graft; Z79.01 Long term (current) use of anticoagulants; Z79.4 Long term (current) use of insulin | CPT/HCPCS: 99213 ==

== ENCOUNTER → 2024-01-19 10:39 | Outpatient (REF) | payer MEDICARE, SELFPAY | LOC: RAD 10:39 | PROVIDERS: ATTENDING PHYSICIAN Registered Nurse; FAMILY PHYSICIAN Internal Medicine | DX: I77.79 Dissection of other specified artery (principal); I87.2 Venous insufficiency (chronic) (peripheral) | CPT/HCPCS: 93970 ==

== ENCOUNTER → 2024-01-22 13:03 | Outpatient (REF) | payer MEDICARE, SELFPAY | LOC: WOUND 13:03 | PROVIDERS: ATTENDING PHYSICIAN Surgery; FAMILY PHYSICIAN Internal Medicine | DX: I70.245 Atherosclerosis of native arteries of left leg with ulceration of other part of foot (principal); L97.322 Non-pressure chronic ulcer of left ankle with fat layer exposed; L88 Pyoderma gangrenosum; I87.2 Venous insufficiency (chronic) (peripheral); E11.22 Type 2 diabetes mellitus with diabetic chronic kidney disease; I44.7 Left bundle-branch block, unspecified; N18.30 Chronic kidney disease, stage 3 unspecified; Z95.5 Presence of coronary angioplasty implant and graft; Z79.01 Long term (current) use of anticoagulants | CPT/HCPCS: 99213 ==

== ENCOUNTER → 2024-01-26 10:05 | Outpatient (REF) | payer MEDICARE, SELFPAY | LOC: HWRAD 10:05 | PROVIDERS: ATTENDING PHYSICIAN Physician Assistant; FAMILY PHYSICIAN Internal Medicine | DX: S91.002A Unspecified open wound, left ankle, initial encounter (principal) | CPT/HCPCS: 73610 ==

== ENCOUNTER 2024-02-03 20:58 | Inpatient (IN) | payer MEDICARE, SELFPAY ==
[2024-02-03 13:27] VITALS: BP 129/61
[2024-02-03 13:56] LABS: % Basophils 0.4 % (0-2); % Eosinophils 0.1 % (0-6); % Immature Granulocytes 0.8 % (0-0.5); % Lymphocytes 8.2 % (20.5-51.1); % Monocytes 13.4 % (1.7-9.3); % Neutrophils 77.1 % (42.2-75.2); Absolute Immature Granulocytes 0.1 10^3/uL (0-0.05); Absolute Lymphocytes 0.9 10^3/uL (1.2-3.4); Absolute Monocytes 1.5 10^3/uL (0.1-0.6); Absolute Neutrophils 8.6 10^3/uL (1.4-6.5); Hematocrit 35.7 % (37.0-47.0); Hemoglobin 11.8 g/dL (12.0-16.0); Mean Corp Hgb Conc. 33.1 g/dL (33.0-37.0); Mean Corpuscular Hgb 27.3 pg (27.0-31.0); Mean Corpuscular Volume 82.4 fL (81.0-99.0); Mean Platelet Volume 12.6 fL (7.4-10.4); Nucleated Red Blood Cells % 0 %; Platelet Count 162 10^3/uL (130-400); Red Blood Cell Count 4.33 10^6/uL (4.20-5.40); Red Cell Dist. Width 15.5 % (11.5-14.5); White Blood Cell Count 11.1 10^3/uL (4.8-10.8)
[2024-02-03 14:04] LABS: APTT 44.9 Sec (23.4-35.0)
[2024-02-03 14:09] LABS: ALT (SGPT) 19 U/L (0-35); AST (SGOT) 21 U/L (14-36); Albumin 4.1 g/dl (3.5-5.0); Alkaline Phosphatase 96 U/L (38-126); Blood Urea Nitrogen 36 mg/dl (7-17); Calcium 9.2 mg/dl (8.4-10.2); Carbon Dioxide 28 mmol/L (22-30); Chloride 99 mmol/L (98-107); Glucose 174 mg/dl (70-99); Potassium 3.7 mmol/L (3.5-5.1); Sodium 138 mmol/L (135-145); Total Bilirubin 0.7 mg/dl (0.2-1.3); Total Protein 6.4 g/dl (6.3-8.2); eGFR 39.55
[2024-02-03 14:10] LABS: Lactic Acid 1.4 mmol/L (0.7-2.0)
[2024-02-03 16:57] VITALS: BP 129/90
--- NOTE | 2024-02-03 17:21 | ED.GENMED ---
History of Present Illness
General
Chief Complaint: Skin Problem
Source: patient
Exam Limitations: none
Time Seen by Provider: 02/03/24 16:48
Nursing documentation reviewed up to this point in time: agreed with
Travel History
Have you had any contact with someone who has COVID-19?: No
Do you have any symptoms of coronavirus? Fever > 100 degrees, chills, cough, shortness of breath, sore throat, loss of taste or smell, muscle aches, or headache?: No
History of Present Illness
History of Present Illness:
Patient is an 88-year-old female with past medical history of hypertension hyperlipidemia hypothyroidism diabetes CAD a flutter peripheral arterial disease AR chronic kidney disease who presents to the ER with redness and wounds to right leg and
foot. She complaints of burning discomfort to area . She reports 4 days ago she started with swelling of the right lower leg and noticed redness to the right foot now with open wounds and drainage from toes and right foot.
she reports she had similar symptoms(left leg wound ) had procedure by Dr. Lee. It is documented in medical records the patient had left tibioperoneal trunk occlusion and had arteriogram and intravascular lithotripsy on January.
Past History
Past History
ED Past Medical History: Arrthythmia (afib), CAD, CHF, GERD, HTN, Hypercholesterolemia, IDDM, Other (peripheral vascular disease, hypertrophic cardiomyopathy,) and Other (Paroxysmal atrial fib, coronary disease status post AR status post stents, and
diabetes, hypertension, hypercholesterolemia)
ED Past Surgical History: Cardiac (Cardiac ablation) and Gynecological (LEANN/BSO)
Social History
Tobacco: Former smoker
Alcohol: None
Personal:
Living: alone
Employment: Retired
Family History
Family History: Diabetes and CAD
Review of Systems
Review of Systems
Allergies reviewed?: Yes
All Other Systems: ROS reviewed and negative except as documented in HPI and ROS
Constitutional: Denies fever, fatigue or chills
Cardiac: Reports no symptoms
ABD/GI: Reports no symptoms
Musculoskeletal: Reports other (Redness swelling discomfort and open wounds to right foot/leg)
Skin: Reports other (See above)
Neurological: Reports no symptoms
Hematologic/Lymphatic: Reports no symptoms
Psychiatric: Reports no symptoms
Phy Exam
General Physical Exam
General Presentation: no apparent distress
General age: appears stated age
General Skin: warm and dry
General Mental: alert
General Hydration: appears well hydrated
Neurological Exam
Neurological Exam: alert and oriented x3
Musculoskeletal Exam
Musculoskeletal Exam: other (Pulses by Doppler b/l l/e right lower extremity with obvious redness to general foot and toes with redness extending to lower leg with swelling open wounds scattered to foot toes heel)
Skin Exam
Skin Exam: normal color and warm/dry
Psychiatric Exam
Psychiatric Exam: normal mood/affect
Course
Orders/Labs/Results
Orders:
Orders
02/03/24 13:45
Complete Blood Count/With Diff Urgent
Comprehensive Metabolic Panel Urgent
Lactic Acid Urgent
PTT Urgent
Blood Culture Urgent
CL Source: Blood/Venous
Specimen Description:
02/03/24 18:28
Venous Doppler Lwr Ext Rt [US Perip Venous LOWER Ext RT] Urgent
Comment:
Reason For Exam: swelling redness to right foot/leg
02/03/24 18:43
Morphine Sulfate 2 mg IV NOW STA
02/03/24 18:44
CeFAZolin 1 GRAM [Ancef] 1 gram in 5 ml IV NOW
Abnormal Lab Results
02/03/24
13:45
WBC 11.1 H 10^3/uL
(4.8-10.8)
Hgb 11.8 L g/dL
(12.0-16.0)
Hct 35.7 L %
(37.0-47.0)
RDW 15.5 H %
(11.5-14.5)
MPV 12.6 H fL
(7.4-10.4)
Abs Immat Gran (auto) 0.1 H 10^3/uL
(0-0.05)
Absolute Neuts (auto) 8.6 H 10^3/uL
(1.4-6.5)
Absolute Lymphs (auto) 0.9 L 10^3/uL
(1.2-3.4)
Absolute Monos (auto) 1.5 H 10^3/uL
(0.1-0.6)
Immature Gran % 0.8 H %
(0-0.5)
Neutrophils % 77.1 H %
(42.2-75.2)
Lymphocytes % 8.2 L %
(20.5-51.1)
Monocytes % 13.4 H %
(1.7-9.3)
APTT 44.9 H Sec
(23.4-35.0)
BUN 36 H mg/dl
(7-17)
Creatinine 1.3 H mg/dL
(0.6-1.0)
Glucose 174 H mg/dl
(70-99)
02/03/24 13:45
02/03/24 13:45
Vital Signs
Initial and Last Documented VS:
Initial Vital Signs
Temp Pulse Resp BP Pulse Ox
98.3 F 96 20 129/61 98
02/03/24 13:27 02/03/24 13:27 02/03/24 13:27 02/03/24 13:27 02/03/24 13:27
Last Documented Vital Signs
Temp Pulse Resp BP Pulse Ox
97.3 F 91 20 129/90 99
02/03/24 16:57 02/03/24 16:57 02/03/24 13:27 02/03/24 16:57 02/03/24 16:57
MDM/Problems Addressed
Differential Diagnosis Includes:
not limited to : cellulitis , dvt
MDM/Problems Addressed:
.
As documented patient is an 88-year-old female who presented to the ER with several days of redness swelling open wounds drainage to right foot. Patient had lithotripsy done for a tibial peroneal trunk occlusion by Dr. Lee January 3 here. She is
anticoagulated for A-fib. She has doppler pulses b/l She denies any fevers. Her white count is mildly elevated at 11 1 with a normal lactic. She is afebrile. BUN/creatinine elevated however not changed. I spoke with DR FRANCO will order doppler
to rule out DVT treat for cellulitis and he will see in am. IV ancef ordered Patient will need arterial studies done on admission. To keep NPO after midnight
Chronic conditions affecting care:
Peripheral arterial disease with recent lithotripsy of tibioperoneal trunk occlusion, diabetes
*Pulse Oximetry
Patient hypoxic: no
*Critical Care Note
Total Time (30-74mins, 75-104mins- exclusive of procedures): Not Applicable
ED Attending Note
-
Portions of this chart may have been created with voice recognition software.� Occasional wrong word or��sound alike� substitutions may have occurred due to the inherent limitations of voice recognition software.
Discharge Plan
Departure
Patient Disposition: Admit
Date of Disposition: 02/03/24
Time of Disposition: 19:50
Admit to: Med/Surg
Admit to doctor: hospitalist
Presentation/result/management discussed w/ accepting MD/DO: Hospitalist
Patient with high blood pressure during this ER visit?: Yes
Condition: Fair
Covid-19: Not Applicable
Discharge Problem:
Cellulitis of leg, right
Prescriptions:
No Action
furosemide 40 MG tablet
40 mg PO DAILY
cyanocobalamin (vitamin B-12) 1,000 MCG tablet
1,000 mcg PO DAILY
pantoprazole 40 MG tablet,delayed release (DR/EC)
40 mg PO DAILY
methimazole 5 MG tablet
5 mg PO DAILY
insulin lispro [Humalog U-100 Insulin] 100 UNIT/ML solution
0 - 14 sliding scale dose SC AC
Patient Comments:
02/03/2024: If < 80= 0; 80-100= 5; 100-199= 11; 200-299= 12; 300-399= 13; >400= 14 + call md
propranolol 20 MG tablet
20 mg PO Q6HPRN PRN (Reason: 'heart' Palpitations )
insulin glargine [Lantus Solostar U-100 Insulin] 300 UNITS/3 ML insulin pen
20 units SC HS
Spiriva Respimat 1 PUFF mist
2 puff inhalation R QPM
Eliquis 5 MG tablet
5 mg PO BID
diltiazem HCl 120 MG capsule,extended release 24hr
120 mg PO HS
lorazepam 0.5 mg Tablet
0.5 mg PO TIDPRN PRN (Reason: anxiety)
Patient Comments:
02/03/2024: last filled 07/24/22, 30 tabs [facility]
baclofen 10 mg Tablet
10 mg PO HS
ferrous sulfate [iron] 325 mg (65 mg iron) Tablet
325 mg PO DAILY
PreserVision AREDS-2 250-90-40-1 mg Capsule
1 tab PO BID
Nervive Nerve Relief
1 tab PO HS
levalbuterol tartrate 45 mcg/actuation Hfa Aerosol Inhaler
1 puff INHALATION R Q6HPRN PRN (Reason: shortness of breath )
acetaminophen-codeine 300-15 mg tablet
1 tab PO Q12H
Patient Comments:
02/03/2024: last filled 01/25/24, 30 tabs for 15 days from [facility]
cholecalciferol (vitamin D3) [Vitamin D3] 25 mcg (1,000 unit) Tablet
25 mcg PO DAILY
Referrals:
Zayda Asencio MD [Family Provider] -
Interventions
Interventions:
*Risk Screen - Suicide Last Done: 02/03/24 13:27
*General Assessment Last Done: 02/03/24 13:27
*Neglect/Abuse Screening Last Done: 02/03/24 13:27
*ED COVID-19 Vaccine History Last Done: 02/03/24 17:47
ED-Skin Assessment Last Done: 02/03/24 17:38
Discharge Date and Time
Print Language: MALIAN
[2024-02-03 18:44] VITALS: BMI 20.8
[2024-02-03] MEDS: MORPHINE SULFATE 2 MG IV (18:59)
[2024-02-03] MEDS: ANCEF 5 IV (18:59)
--- NOTE | 2024-02-03 20:17 | HPS.HSE ---
Family Physician
-
Family Physician: Zayda Asencio
Chief Complaint
-
right lower extremity open wounds
History of Present Illness
88-year-old female past medical history of paroxysmal atrial fibrillation/flutter status post ablation on Eliquis, coronary artery disease, moderate mitral stenosis, hypertension, chronic left bundle branch block, hypertrophic cardiomyopathy, HFpEF,
diabetes, COPD, peripheral arterial disease status post stents, anemia, prior GI bleeding, hyperlipidemia, CVA, GERD, hyperthyroidism presenting for redness and wounds of the right leg and foot with burning discomfort to the area. 4 days ago she
started having some swelling of the right lower leg and noticed redness to the right foot now with open wounds and drainage from toes to right foot. She did not have these open wounds or any discoloration previously. She also complains of severe
pain in both lower extremities.
Patient recently had left tibioperoneal trunk occlusion and had arteriogram and intravascular lithotripsy on January 08, 2024. Chronic left ankle wound. She states that the wound has been healing since then but she continues to have severe pain in that
lower extremity.
She denies smoking alcohol use.
Medical History
Past Medical History
Past Medical History: Reports Other (paroxysmal atrial fibrillation/flutter status post ablation on Eliquis, coronary artery disease, moderate mitral stenosis, hypertension, chronic left bundle branch block, hypertrophic cardiomyopathy, HFpEF,
diabetes, COPD, peripheral arterial disease status post stents, anemia, prior GI bleeding, hy)
Past Surgical History: Reports Other (Cardiac (Cardiac ablation) and Gynecological (LEANN/BSO))
Social History
Tobacco: Non-smoker
Alcohol: None
Drug: None
Family History
Family History: Not pertinent
Allergies / Home Medications
Allergies reflects when Allergies were last updated in [facility].
Home Medications with original date entered in [facility]
Allergy/Medication List:
Allergies
Allergy/AdvReac Type Severity Reaction Status Date / Time
acetaminophen [From Ofirmev] Allergy Nausea Verified 02/03/24 13:27
atorvastatin Allergy muscle Verified 02/03/24 18:48
pain and
leg cramps
dabigatran etexilate Allergy patient Verified 02/03/24 13:27
states
esophageal
spasms
dabigatran etexilate mesylate Allergy esophageal Verified 02/03/24 13:27
[From Pradaxa] spasm
doxycycline Allergy terrible Verified 02/03/24 13:27
upset
stomache,
nausea all
through
gabapentin Allergy Muscle pain Verified 02/03/24 18:48
magnesium Allergy diarrhea Verified 02/03/24 13:27
nifedipine Allergy Muscle pain Verified 02/03/24 18:48
Tetracyclines Allergy terrible Verified 02/03/24 13:27
upset
stomache,
nausea all
through
Home Medications
apixaban 5 mg tablet (Eliquis) 5 mg PO BID Blood clot prevention/tx 12/02/21
cyanocobalamin (vitamin B-12) 1,000 mcg tablet 1,000 mcg PO DAILY Supplement 12/02/21
furosemide 40 mg tablet 40 mg PO DAILY Fluid retention/Swelling 12/02/21
insulin glargine 100 unit/mL (3 mL) subcutaneous pen (Lantus Solostar U-100 Insulin) 20 units SC HS Diabetes 12/02/21
insulin lispro 100 unit/mL subcutaneous solution (Humalog U-100 Insulin) 0 - 14 sliding scale dose SC AC Diabetes 12/02/21
methimazole 5 mg tablet 5 mg PO DAILY Thyroid 12/02/21
pantoprazole 40 mg tablet,delayed release 40 mg PO DAILY Gastrointestinal issue 12/02/21
propranolol 20 mg tablet 20 mg PO Q6HPRN PRN 'heart' Palpitations 12/02/21
tiotropium bromide 2.5 mcg/actuation mist for inhalation (Spiriva Respimat) 2 puff inhalation R QPM wheezing, sob 12/02/21
diltiazem HCl 120 mg capsule,extended release 24 hr 120 mg PO HS Heart disease/condition 12/03/21
Nervive Nerve Relief 1 tab PO HS Supplement 01/06/24
baclofen 10 mg tablet 10 mg PO HS 01/06/24
ferrous sulfate 325 mg (65 mg iron) tablet (iron) 325 mg PO DAILY Supplement 01/06/24
lorazepam 0.5 mg tablet 0.5 mg PO TIDPRN PRN anxiety 01/06/24
vit C 250 mg-vit E 90 mg-zinc 40 mg-copper 1 [id number] capsule (PreserVision AREDS-2) 1 tab PO BID Supplement 01/06/24
levalbuterol tartrate 45 mcg/actuation aerosol inhaler 1 puff inhalation R Q6HPRN PRN shortness of breath 01/08/24
acetaminophen 300 mg-codeine 15 mg tablet 1 tab PO Q12H 02/03/24
cholecalciferol (vitamin D3) 25 mcg (1,000 unit) tablet (Vitamin D3) 25 mcg PO DAILY 02/03/24
Review of Systems
-
History Source: Patient
A 12 point ROS was completed and negative except as noted: Yes
Constitutional: Reports No Symptoms
EENT: Reports No Symptoms
Respiratory: Reports No Symptoms
Cardiac: Reports No Symptoms
Abdomen/GI: Reports No Symptoms
: Reports No Symptoms
Musculoskeletal: Reports No Symptoms
Skin: Reports No Symptoms
Neurological: Reports No Symptoms
Endocrine: Reports No Symptoms
Hematologic/Lymphatic: Reports No Symptoms
Psych: Reports No Symptoms
Physical Exam
Vital Signs
Vital Signs
Temp Pulse Resp BP Pulse Ox
97.3 F 91 20 129/90 99
02/03/24 16:57 02/03/24 16:57 02/03/24 13:27 02/03/24 16:57 02/03/24 16:57
Physical Exam
General: Well Developed, Well Nourished and No Apparent Distress
HEENT: NormoCephalic, Moist mucous membranes and Atraumatic
Respiratory: Clear
Cardiac: S1/S2 and Regular Rhythm; No Murmur or Rub
GI: Soft, Non Tender, Non Distended and Normal Bowel Sounds; No Organomegaly
Rectal: Deferred by Provider
Musculoskeletal: No Clubbing, No Cyanosis and No Edema
Skin: Other (lower extremity wounds, erythema and swelling ); No Rash
Neuro: Nonfocal/grossly intact
Laboratory Results
-
02/03/24 13:45
02/03/24 13:45
Laboratory Results
APTT 44.9 Sec (23.4-35.0) H 02/03/24 13:45
Lactic Acid 1.4 mmol/L (0.7-2.0) 02/03/24 13:45
Total Bilirubin 0.7 mg/dl (0.2-1.3) 02/03/24 13:45
AST 21 U/L (14-36) 02/03/24 13:45
ALT 19 U/L (0-35) 02/03/24 13:45
Alkaline Phosphatase 96 U/L (38-126) 02/03/24 13:45
Data Reviewed
-
Lab Data: Labs Reviewed by me
Old Records: Reviewed
Impression/Plan
-
IMPRESSION:
PLAN:
# New onset right lower extremity wounds/cellulitis likely secondary to underlying peripheral arterial disease
-Blood cultures, wound culture
-Vancomycin/Zosyn
-Bilateral venous ultrasound pending
-Vascular surgery consulted and recommended n.p.o. past midnight, arterial studies, ordered arterial ultrasound/DAVID
-Continue aspirin, hold Eliquis in anticipation of any interventions
-Dilaudid for pain, continue baclofen
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
# Chronic left ankle wound
-Wound appears to be healing after the intervention
-Wound care consulted
Paroxysmal atrial fibrillation/flutter status post ablation
-Continue diltiazem
-Hold Eliquis
Coronary artery disease status post stents
-Continue aspirin
Chronic left bundle branch block
Hypertrophic cardiomyopathy
Chronic HFpEF
-Continue Lasix
Moderate mitral stenosis
Essential hypertension
-Continue propranolol
Hyperthyroidism
-Continue methimazole
Type 2 diabetes
-Continue Lantus 20 units
-Continue insulin sliding
COPD
-Continue inhalers
Chronic anemia
-Hemoglobin stable
-Continue ferrous sulfate
History of prior GI bleed
History of CVA
Hyperlipidemia
GERD
-Continue proton
Anxiety/depression
-Continue Ativan
Chronic kidney disease
-Renal function at baseline
DNR/DNI
DVT prophylaxis�heparin
Regular diet
[2024-02-03 20:39] VITALS: BP 116/55
[2024-02-03] MEDS: DILAUDID 0.5 MG IV (21:29)
[2024-02-03 23:40] LABS: Glucose - Point of Care 187 mg/dl (70-99)
[2024-02-03] MEDS: ZOSYN 50 IV (23:40)
[2024-02-03 23:47] VITALS: BP 98/48
[2024-02-03] MEDS: TYLENOL #3 1 TABLET PO (23:50)
[2024-02-03] MEDS: LANTUS 0.200000000000000011 UNITS SC (23:51)
[2024-02-03] MEDS: LIORESAL 10 MG PO (23:51)
[2024-02-03] MEDS: CARDIZEM CD PO (23:53)
[2024-02-04] VITALS (20 sets, daily range): BP systolic 94–151; BP diastolic 41–64
[2024-02-04] MEDS: VANCOCIN 300 MG IV (00:44)
[2024-02-04] MEDS: VANCOCIN 300 ML IV (00:44)
--- NOTE | 2024-02-04 08:15 | W.PN.HOSP.TC ---
Today's Communication/Plan
-
Vasc Surg eval
Arterial Doppler
Assessment / Plan
Assessment / Plan
# New onset right lower extremity wounds/cellulitis likely secondary to underlying peripheral arterial disease
-Blood cultures, wound culture
-Vancomycin/Zosyn
-Bilateral venous ultrasound pending
-Vascular surgery consulted and recommended n.p.o. past midnight, arterial studies, ordered arterial ultrasound/DAVID
-Continue aspirin, hold Eliquis in anticipation of any interventions
-Dilaudid for pain, continue baclofen
RLE venous doppler: No evidence of deep venous thrombosis of the right lower extremity.
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
# Chronic left ankle wound
-Wound appears to be healing after the intervention
-Wound care consulted
Paroxysmal atrial fibrillation/flutter status post ablation
-Continue diltiazem
-Hold Eliquis
Coronary artery disease status post stents
-Continue aspirin
Chronic left bundle branch block
Hypertrophic cardiomyopathy
Chronic HFpEF
-Continue Lasix
Moderate mitral stenosis
Essential hypertension
-Continue propranolol
Hyperthyroidism
-Continue methimazole
Type 2 diabetes - IDDM
-Continue Lantus 20 units
-Continue insulin sliding
will start IV with D51/2NS while pt NPO to avoid hypoglycemia until diet resumed
COPD
-Continue inhalers
Chronic anemia
-Hemoglobin stable
-Continue ferrous sulfate
History of prior GI bleed
History of CVA
Hyperlipidemia
GERD
-Continue proton
Anxiety/depression
-Continue Ativan
Chronic kidney disease
-Renal function at baseline
DNR/DNI
DVT prophylaxis�heparin
Regular diet (pt currently NPO pending vasc surg eval)
Wound Care consult
Anticipated Discharge: > 48 hours
Subjective/Interval History
-
Date of Service: February 04, 2024
Awake, alert, conversant
Objective Data
-
Labs:
Laboratory Results
02/04/24
07:55
WBC Pending
Hgb Pending
Hct Pending
Plt Count Pending
Sodium Pending
Potassium Pending
Chloride Pending
Carbon Dioxide Pending
BUN Pending
Creatinine Pending
Glucose Pending
Calcium Pending
Total Bilirubin Pending
AST Pending
ALT Pending
Alkaline Phosphatase Pending
Vital Signs:
Vital Signs
Temp Pulse Resp BP Pulse Ox
97.6 F 79 16 123/52 90
02/04/24 07:35 02/04/24 07:35 02/04/24 07:35 02/04/24 07:35 02/04/24 07:35
Review of Systems
-
History Source: Patient and Coordinated Provider
Constitutional: Denies Fever
EENT: Reports No Symptoms Reported
Respiratory: Reports No Symptoms
Cardiac: Reports No Symptoms
Abdomen/GI: Reports No Symptoms
Musculoskeletal: Reports Myalgias (rt leg pain)
Physical Exam
-
General: Well Developed, Well Nourished and No Apparent Distress
HEENT: Normocephalic, Atraumatic and Moist Mucous Membranes
Respiratory: Clear to Auscultation; Negative Wheezes, Rales or Rhonchi
Cardiac: Regular Rhythm, S1/S2 and Murmur (3/6sem)
GI: Soft, Nontender and Nondistended
Skin: Rash (rt leg changes with probable cellulitis, chronic wounds, erythema and subcutaneious swelling)
Neuro: Awake, Alert and Oriented
[2024-02-04 08:25] LABS: Glucose - Point of Care 112 mg/dl (70-99)
[2024-02-04 08:26] LABS: Hematocrit 34.6 % (37.0-47.0); Hemoglobin 10.9 g/dL (12.0-16.0); Mean Corp Hgb Conc. 31.5 g/dL (33.0-37.0); Mean Corpuscular Hgb 26.7 pg (27.0-31.0); Mean Corpuscular Volume 84.6 fL (81.0-99.0); Mean Platelet Volume 13.6 fL (7.4-10.4); Platelet Count 166 10^3/uL (130-400); Red Blood Cell Count 4.09 10^6/uL (4.20-5.40); Red Cell Dist. Width 15.4 % (11.5-14.5); White Blood Cell Count 10.1 10^3/uL (4.8-10.8)
[2024-02-04] MEDS: TAPAZOLE 5 MG PO (08:49)
[2024-02-04 08:50] LABS: Absolute Neutrophils -Man Diff 7.4 10^3/uL (1.4-6.5); Band Neutrophils 0 % (0-3); Eosinophils 1 % (0-6); Lymphocytes 12 % (20-51); Monocytes 13 % (2-9); Segmented Neutrophils 74 % (42-75)
[2024-02-04] MEDS: LASIX 40 MG PO (08:50)
[2024-02-04] MEDS: FEOSOL 325 MG PO (08:50)
[2024-02-04] MEDS: OCUVITE SOFTGEL 1 CAP PO ×2 (08:50→21:48)
[2024-02-04] MEDS: VITAMIN B-12 1000 MCG PO (08:50)
[2024-02-04 08:51] LABS: Normal RBC Morphology Yes; Platelets Checked Yes; Total Cells Counted 100
[2024-02-04] MEDS: LOW STRENGTH ASPIRIN 81 MG PO (08:55)
[2024-02-04] MEDS: PROTONIX 40 MG PO (08:55)
[2024-02-04] MEDS: VITAMIN D3 (cholecalciferol) 25 MCG PO (08:55)
[2024-02-04] MEDS: HEPARIN 5000 UNITS SC ×2 (08:56→21:49)
[2024-02-04 09:01] LABS: Glycohemoglobin (HgbA1c) 7.1 % (4.0-5.6)
[2024-02-04 09:12] LABS: ALT (SGPT) 14 U/L (0-35); AST (SGOT) 19 U/L (14-36); Albumin 3.3 g/dl (3.5-5.0); Alkaline Phosphatase 76 U/L (38-126); Blood Urea Nitrogen 32 mg/dl (7-17); Calcium 8.9 mg/dl (8.4-10.2); Carbon Dioxide 26 mmol/L (22-30); Chloride 101 mmol/L (98-107); Estimated Creatinine Clearance 31 ml/min; Glucose 108 mg/dl (70-99); Potassium 3.4 mmol/L (3.5-5.1); Sodium 137 mmol/L (135-145); Total Bilirubin 0.7 mg/dl (0.2-1.3); Total Protein 5.6 g/dl (6.3-8.2); eGFR 43.54
[2024-02-04] MEDS: ZOSYN IV ×2 (09:40→19:30)
--- NOTE | 2024-02-04 09:41 | CON.VAS ---
Addendum entered and electronically signed by Tal Jackson MD 02/04/24 12:58:
Seen and examined with JOSE A Maravilla. Agree with findings as noted below. Recent left lower extremity endovascular intervention for limb threatening ischemia. Doing much better from the left lower extremity standpoint. However now presents with
worsened right lower extremity pain and discoloration and lesions. Remainder of history as noted below. On Eliquis for A-fib. Being held.
On exam/she is awake and alert. Head is normocephalic and atraumatic. Eyes are anicteric. Neck is soft without jugular venous distention. Breathing is unlabored. Abdomen is soft, nondistended, nontender. Groins are flat bilaterally. Palpable
left femoral pulse. On the right side 2+ palpable popliteal pulse. Nonpalpable distally. Left foot warm well-perfused. No active ulcerations on the foot. Ankle dressing in place. On the right side her foot is ruborous with elevation pallor.
She has ischemic appearing lesions in the foot (possible early dry gangrene).
Duplex reviewed. Diminished ABIs. No evidence of SFA/popliteal disease. Likely infrapopliteal artery disease.
Plan/chronic limb threatening ischemia right lower extremity. Recommend angiography. Discussed extensively with patient procedure. Discussed risk of limb threatening ischemia without intervention. Discussed risks of procedure including but not
limited to bleeding, arterial injury/worsened or acute limb ischemia, renal failure. She understands all wishes to proceed.
Original Note:
Consultation
Consultation Request
Performing Provider: Manuel
Reason for Consultation: Right foot rest pain/wounds
Medical History
-
Chief Complaint: Right foot pain/wounds
History of Present Illness:
88-year-old female with past medical history A-fib on Eliquis, CKD, CAD (CO with stents), CHF, hypertension, hypercholesterolemia, insulin-dependent diabetic, PAD with recent balloon angioplasty and shockwave lithotripsy to the left lower extremity
on 01/25/2024 for nonhealing wounds. Admitted through the emergency room last night for new onset right foot wounds with severe pain. Vascular consult for PAD eval for the right leg. Patient seen at bedside this a.m. with Dr. Jackson. Patient states
she is comfortable right now, slept well overnight. The day and night prior she states she had unbearable pain in her right foot at rest. She has new scattered wounds to the right foot. She denies trauma/injury. The left medial ankle wound is
healing and she has no open sites on her left foot.
Past Medical History
Past Medical History: Arrhythmias (A-fib on Eliquis), CAD, CHF, GERD, HTN, Hypercholesterolemia, IDDM, CO and Renal Failure
Social History
Tobacco: Former Smoker
Alcohol: None
Personal:
Living: Alone
Employment: Retired
Family History
Family History: CAD and Diabetes
Allergies / Home Medications
Allergy/AdvReac Type Severity Reaction Status Date / Time
acetaminophen [From Ofirmev] Allergy Nausea Verified 02/03/24 23:37
atorvastatin Allergy muscle Verified 02/03/24 18:48
pain and
leg cramps
dabigatran etexilate Allergy patient Verified 02/03/24 13:27
states
esophageal
spasms
dabigatran etexilate mesylate Allergy esophageal Verified 02/03/24 13:27
[From Pradaxa] spasm
doxycycline Allergy terrible Verified 02/03/24 13:27
upset
stomache,
nausea all
through
gabapentin Allergy Muscle pain Verified 02/03/24 18:48
magnesium Allergy diarrhea Verified 02/03/24 13:27
nifedipine Allergy Muscle pain Verified 02/03/24 18:48
Tetracyclines Allergy terrible Verified 02/03/24 13:27
upset
stomache,
nausea all
through
�Medication �Instructions �Recorded �Confirmed �Type
apixaban 5 mg tablet (Eliquis) 5 mg PO BID Blood clot 12/02/21 02/03/24 History
prevention/tx
cyanocobalamin (vitamin B-12) 1,000 mcg PO DAILY Supplement 12/02/21 02/03/24 History
1,000 mcg tablet
furosemide 40 mg tablet 40 mg PO DAILY Fluid 12/02/21 02/03/24 History
retention/Swelling
insulin glargine 100 unit/mL (3 20 units SC HS Diabetes 12/02/21 02/03/24 History
mL) subcutaneous pen (Lantus
Solostar U-100 Insulin)
insulin lispro 100 unit/mL 0 - 14 sliding scale dose SC AC 12/02/21 02/03/24 History
subcutaneous solution (Humalog Diabetes
U-100 Insulin)
methimazole 5 mg tablet 5 mg PO DAILY Thyroid 12/02/21 02/03/24 History
pantoprazole 40 mg tablet,delayed 40 mg PO DAILY Gastrointestinal 12/02/21 02/03/24 History
release issue
propranolol 20 mg tablet 20 mg PO Q6HPRN PRN 'heart' 12/02/21 02/03/24 History
Palpitations
tiotropium bromide 2.5 2 puff inhalation R QPM wheezing, 12/02/21 02/03/24 History
mcg/actuation mist for inhalation sob
(Spiriva Respimat)
diltiazem HCl 120 mg 120 mg PO HS Heart 12/03/21 02/03/24 History
capsule,extended release 24 hr disease/condition
Nervive Nerve Relief 1 tab PO HS Supplement 01/06/24 02/03/24 History
baclofen 10 mg tablet 10 mg PO HS 01/06/24 02/03/24 History
ferrous sulfate 325 mg (65 mg 325 mg PO DAILY Supplement 01/06/24 02/03/24 History
iron) tablet (iron)
lorazepam 0.5 mg tablet 0.5 mg PO TIDPRN PRN anxiety 01/06/24 02/03/24 History
vit C 250 mg-vit E 90 mg-zinc 40 1 tab PO BID Supplement 01/06/24 02/03/24 History
mg-copper 1 [id number]
capsule (PreserVision AREDS-2)
levalbuterol tartrate 45 1 puff inhalation R Q6HPRN PRN 01/08/24 02/03/24 History
mcg/actuation aerosol inhaler shortness of breath
acetaminophen 300 mg-codeine 15 mg 1 tab PO Q12H 02/03/24 02/03/24 History
tablet
cholecalciferol (vitamin D3) 25 25 mcg PO DAILY 02/03/24 02/03/24 History
mcg (1,000 unit) tablet (Vitamin
D3)
Review of Systems
-
History Source: Patient
All other systems: Negative unless noted
Constitutional: Reports No Symptoms
EENT: Reports No Symptoms
Respiratory: Reports No Symptoms
Cardiac: Reports No Symptoms
Vascular: Reports Leg Pain / Claudication
Abdomen/GI: Reports No Symptoms
: Reports No Symptoms
Musculoskeletal: Reports Edema
Skin: Reports Other (Right foot scattered wounds)
Neurological: Reports No Symptoms
Endocrine: Reports No Symptoms
Physical Exam
Vital Signs
Temp Pulse Resp BP Pulse Ox
97.6 F 78 16 112/48 90
02/04/24 07:35 02/04/24 08:50 02/04/24 07:35 02/04/24 08:50 02/04/24 09:00
Lab Results
02/04/24 07:55
02/04/24 07:55
Physical Exam
General: No Apparent Distress
HEENT: Normocephalic and Atraumatic
Respiratory: Non Labored Respirations
Cardiac: Negative JVD
GI: Soft and Non Tender
Musculoskeletal: No Clubbing, No Cyanosis and Edema (Right foot and ankle)
Skin: Warm and Other (Right foot with scattered shallow wounds, entire foot moderately erythematous. Left medial ankle with clean nickel sized wound)
Neuro: Awake, Alert and Oriented
Psych: Calm
Pulses: Bilateral Femoral: +2, Bilateral Dorsalis Pedis: Doppler and Bilateral Posterior Tibial: Doppler
Assessment / Plan
-
88-year-old female with new right foot wounds/pain in the foot at rest
Plan:
-Arterial ultrasound reviewed with Dr. Jackson
-N.p.o. today
-Right lower extremity angiogram today
Data Reviewed
-
Ultrasound: Discussed with Patient
Labs: Labs Reviewed by me
--- NOTE | 2024-02-04 09:58 | PHA.VAN.IN ---
Assessment
- Assessment
Renal Function: Appears similar to baseline
Concomitant Antimicrobials: piperacillin/tazobactam
Plan
- Plan
Initial / Loading Dose: 1500mg - 02/03 00:44
Maintenance Regimen: dosing by level
Monitoring: random 02/04 06
Pharmacokinetics Vancomycin I
- -
Patient Age: 88
Patient Sex: Female
Vancomycin Day #: 1
Indication: Skin And Soft Tissue
Requesting Provider: Dr. Ramirez
Pertinent Antimicrobial Allergies:
doxycycline / tetracyclines - terrible upset stomach, nausea
Height / Weight:
Height 5 ft 8 in
Actual Weight 59.647 kg
Pertinent Past Medical History: DM 2, PAD, CKD
- Vital Signs / Lab Results
Temp Pulse Resp BP Pulse Ox
97.6 F 78 16 112/48 90
02/04/24 07:35 02/04/24 08:50 02/04/24 07:35 02/04/24 08:50 02/04/24 09:00
Lab Results - Hematology
02/03/24 02/04/24
13:45 07:55
WBC 11.1 H 10.1
Band Neutrophils 0
Lab Results - Chemistry
02/03/24 02/04/24
13:45 07:55
BUN 36 H 32 H
Creatinine 1.3 H 1.2 H
Estimated Creat Clear 31
Albumin 4.1 3.3 L
02/03/24
13:45
Lactic Acid 1.4
[2024-02-04] MEDS: D5/0.45%NSS with KCL 20 MEQ 1000 IV (09:59)
[2024-02-04] MEDS: DILAUDID 0.5 MG IV ×2 (10:07→22:15)
[2024-02-04] MEDS: ZOSYN 50 IV ×2 (11:56→23:11)
[2024-02-04] MEDS: TYLENOL #3 1 TABLET PO ×2 (12:01→23:11)
[2024-02-04 12:04] LABS: Glucose - Point of Care 136 mg/dl (70-99)
--- NOTE | 2024-02-04 14:35 | WOUNDNOTE ---
[facility] RN note: Patient admitted with LLE wounds, new R heel, R toe and R ankle wounds. She reports that she was having more swelling, new ulcers and drainage RLE.
See H&P for complete history.
PMH: a fib (Eliquis) s/p ablation, mitral stenosis, HTN, CM, CHF, DM, COPD, PAD post stents, GI bleed, CVA, chronic L ankle ulcer, leg pain, CKD3.
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 R dry toe ulcers, R heel ulcer from edema and her sneaker rubbing as per patient,
dry brown black on edges with pink/yellow in center, deep dermal ulcer vs full thickness also r/t PAD. R medial ankle small deep dermal venous ulcer with scant serous drainage. Trace LE edema. See vascular report. Arteriogram planned today.
Appetite: currently NPO for procedure.
Pressure redistribution devices in place: [employer] Accumax.
Plan: Dressing changed LLE (she uses Triamcinolone prescribed by Dr. Schwab at [facility]). Changed R medial ankle dressing. No sting skin prep applied to dry ulcers R toes. Foam applied to both heels. Heels off bed with air chair cushion. She uses
her sandals currently for ambulation. She stated she has a flat surgical shoe at home but prefers her sandals. Votaw texted Eneida Maravilla who confirmed can use knee high compression with Tomás wrap with light compression or Tubigrip; remove q hs.
Will confirm orders with Dr. Vicente and discussed with JACINTO Dean.
Care plan to be updated and will follow as needed.
Note to case management of equipment requested for discharge: VN if she agrees.
Patient to follow up at [facility] wound care center upon discharge.
--- NOTE | 2024-02-04 14:47 | WOUNDNOTE ---
R HEEL (POSTERIOR UPPER)
[2024-02-04] MEDS: NSS 200 IV (14:59)
--- NOTE | 2024-02-04 15:29 | PTCARENOTE ---
Patient to environmental laboratory technician in bed with environmental laboratory technician RN's
[2024-02-04 15:57] LABS: Glucose - Point of Care 90 mg/dl (70-99)
--- NOTE | 2024-02-04 18:26 | W.IMMPOSTOP ---
Surgical Immed Post Op Note
-
Primary Surgeon: Manuel
Assisting Surgeon: None
Pre-op Diagnosis: Chronic limb threatening ischemia RLE
Post-op Diagnosis: same
Procedure Performed: RLE angiogram, angioplasty R behind knee popliteal artery with 4mm standard balloon, 5mm DCB; Placement of stent R above knee/behind knee popliteal artery (5mm x 100mm Zilver PTX).
Anesthesia Type: local, sedation
Specimen / Cultures: none
Estimated Blood Loss: <2cc
Complications: none
Operative Findings: single vessel peroneal artery runoff - diffuse mild disease - more distally w moderate focal stenosis. Reconstitution of DP via peroneal artery collaterals.
[2024-02-04 18:52] LABS: Glucose - Point of Care 74 mg/dl (70-99)
[2024-02-04] MEDS: SUBLIMAZE 50 MCG IV (19:44)
--- NOTE | 2024-02-04 20:05 | PTCARENOTE ---
Patient arrived from PACU @20:05 on 2L O2, AAO, VSS, (L) groin dressing negative for hematoma (ALARM INSTALLER reported pressure off @18:35), order for patient to remain on bedrest and leg extremity straight for 6hours (timed from 18:35), orders for
frequent site checks and vital signs will be followed (see electronic documentation for details).
[2024-02-04] MEDS: SPIRIVA RESPIMAT 2.5 MCG 2 PUFF INH (20:07)
--- NOTE | 2024-02-04 20:25 | SUR.PHASEI ---
vss in pacu, doppler signal pulses - initially hard to find and intermittent - with warming - stronger signals. deeper red coloration of feet, body cold on arrival - now warmer, ready for discharge at 1930 - await giving report and then sudden
onset of heel pain and back pain, skin care - log rolled and medicated with fentanyl with relief. report to 2 south and discharge to room
[2024-02-04] MEDS: LANTUS 0.200000000000000011 UNITS SC (21:50)
[2024-02-04] MEDS: LIORESAL 10 MG PO (21:50)
[2024-02-04] MEDS: CARDIZEM CD 120 MG PO (21:50)
[2024-02-04 21:51] LABS: Glucose - Point of Care 119 mg/dl (70-99)
[2024-02-05] VITALS (7 sets, daily range): BP systolic 108–148; BP diastolic 44–61; PULSE 74; O2SAT 97; BMI 19.6
[2024-02-05] MEDS: ATIVAN 0.5 MG PO ×2 (00:19→21:44)
--- NOTE | 2024-02-05 04:00 | PTCARENOTE ---
Patient became very anxious, unable to calm down, prn order for PO Ativan 0.5 administered at 00:19, patient was then able to rest comfortably and remained alseep until 04:00 when she awoke confused, taking her clothing 'to go home', reoriented
patient, bed alarm activated and patient remained calm in bed; will continue to monitor and give detailed report to dayshift RN.
[2024-02-05] MEDS: ZOSYN 50 IV ×4 (05:34→23:49)
[2024-02-05 06:01] LABS: Vancomycin Random 10.1 ug/ml
--- NOTE | 2024-02-05 07:26 | W.PN.VS ---
Addendum entered and electronically signed by Tal Jackson MD 02/05/24 08:41:
Seen and examined with CASINO BANKER. Agree with findings as noted below. Patient notes improvement in her right foot pain. Left groin puncture site flat, no hematoma. Right foot warm. 1+ DP pulse palpable. Confirmed with Doppler. Foot is warm.
Improvement in color. Plan/as discussed and noted below.
Original Note:
Today's Communication / Plan
-
Patient seen and examined at bedside with Dr. Tal Jackson, below plan reviewed with attending.
Assessment/Plan
-
Assessment: 88-year-old female POD #1 RLE angiogram, angioplasty R behind knee popliteal artery with 4mm standard balloon, 5mm DCB; Placement of stent R above knee/behind knee popliteal artery (5mm x 100mm Zilver PTX)
Plan:
Can restart anticoagulation from a vascular surgery perspective
Continue aspirin 81 mg p.o. daily
Patient will follow-up in our office with repeat ultrasounds in roughly 3 to 4 weeks, appointment placed in discharge instructions
Subjective Data
-
Date of Service: February 05, 2024
Patient seen and examined at bedside, reports she initially had left heel pain overnight but now it is resolved. Denies nausea, fever, chills, and vomiting. Tolerating p.o. diet.
Objective Data
-
Vital Signs
Temp Pulse Resp BP Pulse Ox
98.4 F 76 19 116/52 96
02/05/24 03:36 02/05/24 03:36 02/05/24 03:36 02/05/24 03:36 02/05/24 03:36
Intake and Output
02/04/24 02/05/24 02/06/24
06:59 06:59 06:59
Intake Total 550 / 550
Output Total 150 / 150
Balance 400 / 400
Intake:
Oral fluids 350 / 350
IV fluids (Total) 100 / 100
nss 100 / 100
IV piggybacks 100 / 100
Output:
Urine, Voided 150 / 150
Other:
Number of approximated MODERATE 1
amounts of urine
Number of approximated LARGE 2
amounts of urine
How many times incontinent 1
How many times incontinent 2
MODERATE amount urine
Lab Results
02/04/24 07:55
02/04/24 07:55
Calcium 8.9 mg/dl (8.4-10.2) 02/04/24 07:55
Total Bilirubin 0.7 mg/dl (0.2-1.3) 02/04/24 07:55
AST 19 U/L (14-36) 02/04/24 07:55
ALT 14 U/L (0-35) 02/04/24 07:55
Alkaline Phosphatase 76 U/L (38-126) 02/04/24 07:55
Total Protein 5.6 g/dl (6.3-8.2) L 02/04/24 07:55
Albumin 3.3 g/dl (3.5-5.0) L 02/04/24 07:55
Physical Exam
-
No apparent distress, resting in bed comfortably
No tachycardia
No dyspnea on room air
ABD flat, nontender, nondistended
Left groin site CDI, no evidence of hematoma, all surrounding compartments soft
Right foot warm, positive DP Doppler signal
--- NOTE | 2024-02-05 08:00 | PHA.VAN.FU ---
Vancomycin Assessment / Plan
- Assessment
Renal Function: No New Labs Today
WBC's are: WNL
In the past 24 hrs, patient has been: Afebrile
Concomitant Antimicrobials: piperacillin/tazobactam
- Assessment - Therapeutic Drug Monitoring
Random Level: 10.1 - drawn ~28H after 1500mg loading dose
- Dosing Plan
Dosing by Level: Re-dose today (Vanc 750mg)
- Monitoring Plan
Random Level: 02/05 0600
- Follow Up
Pharmacy will continue to follow.
Vancomycin Follow UP
- -
Patient Age: 88
Patient Sex: Female
Vancomycin Day #: 2
Indication: Skin And Soft Tissue
Requesting Provider: Dr. Ramirez
Pertinent Antimicrobial Allergies:
doxycycline / tetracyclines - terrible upset stomach, nausea
Height / Weight:
Height 5 ft 8 in
Actual Weight 59.647 kg
Pertinent Past Medical History: DM 2, PAD, CKD
- Vital Signs / Lab Results
Temp Pulse Resp BP Pulse Ox
97.5 F 82 16 117/50 93
02/05/24 07:25 02/05/24 07:25 02/05/24 07:25 02/05/24 07:25 02/05/24 07:25
Lab Results - Hematology
02/03/24 02/04/24
13:45 07:55
WBC 11.1 H 10.1
Band Neutrophils 0
Lab Results - Chemistry
02/03/24 02/04/24
13:45 07:55
BUN 36 H 32 H
Creatinine 1.3 H 1.2 H
Estimated Creat Clear 31
Albumin 4.1 3.3 L
02/03/24
13:45
Lactic Acid 1.4
Microbiology Results
02/03/24 13:45 Blood Culture - Preliminary
Blood/Venous No Growth in 24 hours- Final report to follow
02/03/24 22:33 Gram Stain - Preliminary
Toe
Therapeutic Drug Monitoring
Random Vancomycin 10.1 ug/ml 02/05/24 05:11
[2024-02-05 08:05] LABS: Glucose - Point of Care 83 mg/dl (70-99)
--- NOTE | 2024-02-05 08:08 | W.PN.HOSP.TC ---
Today's Communication/Plan
-
Case Management
IVF stopped
stop Heparin and resume Eliquis
PT/OT
continue abx for now, plan change to oral at time of dc
Assessment / Plan
Assessment / Plan
# New onset right lower extremity wounds/cellulitis likely secondary to underlying peripheral arterial disease
-Blood cultures, wound culture
-Vancomycin/Zosyn
-Vascular surgery consulted underwent RLE angiogram, angioplasty R behind knee popliteal artery with 4mm standard balloon, 5mm DCB; Placement of stent R above knee/behind knee popliteal artery (5mm x 100mm Zilver PTX)
-Continue aspirin, okay with Vasc to resume Eliquis
-Dilaudid for pain, continue baclofen
RLE venous doppler: No evidence of deep venous thrombosis of the right lower extremity.
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
# Chronic left ankle wound
-Wound appears to be healing after the intervention
-Wound care consulted
Paroxysmal atrial fibrillation/flutter status post ablation
-Continue diltiazem
-Resume Eliquis
EKG
Coronary artery disease status post stents
-Continue aspirin, will need to be dc on ASA
Chronic left bundle branch block
Hypertrophic cardiomyopathy
Chronic HFpEF
-Continue Lasix
Moderate mitral stenosis
Essential hypertension
-Continue propranolol
Hyperthyroidism
-Continue methimazole
Type 2 diabetes - IDDM
-Continue Lantus 20 units
-Continue insulin sliding
diet resumed
a1c 7.1%
COPD
-Continue inhalers
Chronic anemia
-Hemoglobin stable
-Continue ferrous sulfate
History of prior GI bleed
History of CVA
Hyperlipidemia
GERD
-Continue proton
Anxiety/depression
-Continue Ativan
Chronic kidney disease
-Renal function at baseline
DNR/DNI
DVT prophylaxis�resume Eliquis
Regular diet
Wound Care consult
discussed with Vasc Surg
Anticipated Discharge: 24 - 48 hours
Subjective/Interval History
-
Date of Service: February 05, 2024
States having significant leg pain
Objective Data
-
Vital Signs:
Vital Signs
Temp Pulse Resp BP Pulse Ox
97.5 F 82 16 117/50 93
02/05/24 07:25 02/05/24 07:25 02/05/24 07:25 02/05/24 07:25 02/05/24 07:25
I&O
02/04/24 02/05/24 02/06/24
06:59 06:59 06:59
Intake Total 550 / 550
Output Total 150 / 150
Balance 400 / 400
Review of Systems
-
History Source: Patient and Coordinated Provider
Constitutional: Denies Fever
EENT: Reports No Symptoms Reported
Respiratory: Reports No Symptoms
Cardiac: Reports No Symptoms
Abdomen/GI: Reports No Symptoms
Musculoskeletal: Reports Myalgias (rt leg pain)
Physical Exam
-
General: Well Developed, Well Nourished and No Apparent Distress
HEENT: Normocephalic, Atraumatic and Moist Mucous Membranes
Respiratory: Clear to Auscultation; Negative Wheezes, Rales or Rhonchi
Cardiac: S1/S2, Irregular Rhythm and Murmur (3/6sem)
GI: Soft, Nontender and Nondistended
Musculoskeletal: Other (rt foot warm to touch)
Skin: Rash (rt leg changes with probable cellulitis, chronic wounds, erythema and subcutaneious swelling)
Neuro: Awake, Alert and Oriented
--- NOTE | 2024-02-05 08:25 | CM ---
met with patient at bedside.she lives in an apt with 14 steps to enter,then there is one floor living.she amb with a rw,is I with her adl's.her sister kellen is her poa.she is on insulin for her diabetes and has a lebre 2 for monitoring bs. her pcp
is deborah and she uses [facility] in [place].she had dhvn after she had a tia.she has never been in ip rehab.
patient is adm with le wounds and is sp rle angioplasty/stent placement,wound cs,bc,wound cx..she is on eliquis for afib.patient has declined a vn when dc.plan:dc home with no needs.
[2024-02-05] MEDS: NOVOLOG FLEXPEN-LOW RESISTANCE SC ×2 (09:24→11:41)
[2024-02-05] MEDS: OCUVITE SOFTGEL 1 CAP PO ×2 (09:25→21:41)
[2024-02-05] MEDS: TAPAZOLE 5 MG PO (09:25)
[2024-02-05] MEDS: VITAMIN D3 (cholecalciferol) 25 MCG PO (09:25)
[2024-02-05] MEDS: VITAMIN B-12 1000 MCG PO (09:25)
[2024-02-05] MEDS: LASIX 40 MG PO (09:25)
[2024-02-05] MEDS: LOW STRENGTH ASPIRIN 81 MG PO (09:25)
[2024-02-05] MEDS: FEOSOL 325 MG PO (09:25)
[2024-02-05] MEDS: TRIAMCINOLONE 0.1% OINTMENT 1 APPLIC TOPICAL (09:26)
[2024-02-05] MEDS: PROTONIX 40 MG PO (09:26)
[2024-02-05] MEDS: VANCOCIN 150 IV (09:27)
[2024-02-05] MEDS: HEPARIN SC (09:34)
[2024-02-05] MEDS: ELIQUIS 5 MG PO ×2 (09:46→21:41)
--- NOTE | 2024-02-05 10:30 | OR.RPT ---
Operative Report
Operative Report
PROCEDURE DATE: 02/04/2024
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
Postoperative diagnosis: Same
Procedure:
1. Duplex assisted left common femoral artery cannulation.
2. Aortogram and pelvic angiogram.
3. Right lower extremity arteriogram with third order vessel catheterization of right peroneal artery via left common femoral artery puncture.
4. Balloon angioplasty of behind the knee string-like popliteal artery severe stenosis with 4 mm standard angioplasty balloon followed by 5 mm drug-coated balloon ([employer] In.PACT).
5. Placement of stent left behind knee popliteal artery to above-knee popliteal artery with 5 mm x 10 cm Zilver PTX self-expanding stent.
6. Left femoral angiogram.
7. Supervision and interpretation.
Surgeon: Manuel
[employer] Specialist: None
Complications: None
Anesthesia: Local, sedation
Fluoroscopy:
12.8 min
47 mGy
11.45 Gy.cm2
Indications for procedure:
Chronic limb threatening ischemia right lower extremity. Risk/benefits/alternatives of revascularization were all fully discussed. Patient understood all wish to proceed.
Description of procedure:
Patient was identified, brought to the operating room. Placed on the table in the supine position. After the adequate administration of anesthesia, the patient was prepped and draped in the standard surgical fashion. A standard preoperative
timeout was undertaken and everybody was in agreement with the plan.
The left common femoral artery was accessed with a micropuncture kit under direct duplex ultrasound guidance. This proved to be challenging somewhat due to the presence of calcified plaque in the artery. However I was able to finally gain
successful access into the common femoral artery with wire access into the iliac system. Next, a 5 Uzbek sheath was then advanced over a 0.035 inch wire, and a robledo's hook catheter was advanced into the abdominal aorta. Aortogram and pelvic
angiogram was obtained. Findings as follows:
Infrarenal aorta: Patent atherosclerotic infrarenal aorta with luminal irregularities, mild ectasia distally. Patent bilateral common iliac artery stents with no in-stent restenosis noted. Bilateral external iliac arteries appear generally patent
with no obvious discernible stenoses.
Using a floppy angled hydrophilic wire, the right common femoral artery was cannulated and the catheter was advanced. Right lower extremity arteriogram was obtained. Findings as follows:
Common femoral artery:[Patent with no significant stenosis]
Profunda femoris artery:[Patent with no significant stenosis]
Superficial femoral artery: Patent with diffuse luminal irregularities but no high-grade stenosis. Moderate to severe atherosclerotic plaque noted especially in the distal SFA but no stenosis noted.
Popliteal artery: Patent above-knee popliteal artery. In the distal above-knee to behind the popliteal artery there is some luminal irregularities with focal plaque dissection as well as a bulky plaque that resulted in a moderate stenosis. Just
beyond there there was a severe string stenosis with literally a string of flow through it. Beyond here there is reconstituted flow in the below-knee popliteal artery that gave rise to tibioperoneal trunk and a single-vessel peroneal artery runoff.
The peroneal artery was generally diffusely patent with luminal irregularities. In the distal portion just above the ankle there was a moderate at least stenosis. But there was relatively reasonable filling into collaterals that filled onto the
foot reconstituting a dorsalis pedis and one of the plantar branches. Within the foot itself there was relatively poor collateralization beyond there.
At this point I selectively cannulated the right superficial femoral artery and then exchanged for a Storq wire and an up and over 6 Uzbek sheath. The patient was then given 4000 units of intravenous heparin. Next under roadmap assisted guidance
I was able to traverse the area of string-like stenosis with a flap angled hydrophilic wire and then a CXI catheter. I then gained wire access into the peroneal artery. Now I performed balloon angioplasty with a standard balloon angioplasty to
prep the lesion with a 4 mm x 40 mm angioplasty balloon. Next I used a 5 mm x 4 cm Bard Lutonix drug-coated balloon. I performed a prolonged inflation in the standard fashion. Completion angiogram demonstrated definitely improvement in the
string-like stenosis but there is opacity as well as focal dissection that raise concern in that vicinity. In addition I could see now better that in the vicinity where there is ulcerated plaque or plaque dissection in the more proximal above-knee
popliteal artery that resulted in a moderate stenosis at least there. Therefore I felt that stenting this entire segment would be better. I therefore then used a 5 mm x 10 cm Zilver PTX stent. This was post angioplastied with a 4 mm balloon.
Completion angiogram now demonstrated excellent result with brisk flow into the runoff. The peroneal artery filled pretty briskly. The area of moderate stenosis focally distally in the peroneal artery appeared to be not as flow-limiting severely.
There was also now I could see reconstituted flow in the distal anterior tibial/dorsalis pedis artery. At this point I felt that there may be more risk in treating that distal peroneal lesion. I felt the flow was relatively brisk. Therefore I was
satisfied. I withdrew my sheath to the left external iliac artery. Left femoral angiogram demonstrated good puncture in the left common femoral artery. Therefore the wires and catheters were withdrawn. The sheath was withdrawn and manual
pressure was applied to the puncture site. Full hemostasis was noted. The patient was given protamine to reverse the heparin as well. Upon completion she had an excellent dopplerable DP signal and even a reconstituted weak trace 1+ pulse in the
DP.
The patient tolerated procedure well.
[2024-02-05 11:39] LABS: Glucose - Point of Care 148 mg/dl (70-99)
[2024-02-05] MEDS: TYLENOL #3 1 TABLET PO ×2 (12:42→23:49)
[2024-02-05] MEDS: FLUSH (NSS) 2 FLUSH IV (12:42)
[2024-02-05 16:40] LABS: Glucose - Point of Care 228 mg/dl (70-99)
[2024-02-05] MEDS: NOVOLOG FLEXPEN-LOW RESISTANCE 2 UNITS SC (17:10)
[2024-02-05] MEDS: SPIRIVA RESPIMAT 2.5 MCG 2 PUFF INH (17:42)
[2024-02-05] MEDS: DILAUDID 0.5 MG IV (18:20)
--- NOTE | 2024-02-05 18:33 | PTCARENOTE ---
Patient suddenly with significant pain in her right upper arm and her right upper leg.She said it feels like a muscle but doesn't feel like a cramp. Pulses present with the Doppler.Bilateral feet still warm with good color.Vascular surgeon component technician
notified.Will continue to assess
[2024-02-05] MEDS: CARDIZEM CD 120 MG PO (21:41)
[2024-02-05] MEDS: LIORESAL 10 MG PO (21:41)
[2024-02-05 21:42] LABS: Glucose - Point of Care 345 mg/dl (70-99)
[2024-02-05] MEDS: LANTUS 0.200000000000000011 UNITS SC (21:42)
[2024-02-06 05:44] LABS: % Basophils 0.5 % (0-2); % Eosinophils 0.2 % (0-6); % Immature Granulocytes 1.1 % (0-0.5); % Lymphocytes 9.3 % (20.5-51.1); % Monocytes 24.6 % (1.7-9.3); % Neutrophils 64.3 % (42.2-75.2); Absolute Basophils 0.1 10^3/uL (0-0.2); Absolute Immature Granulocytes 0.1 10^3/uL (0-0.05); Absolute Lymphocytes 0.9 10^3/uL (1.2-3.4); Absolute Monocytes 2.4 10^3/uL (0.1-0.6); Absolute Neutrophils 6.4 10^3/uL (1.4-6.5); Hematocrit 35.2 % (37.0-47.0); Hemoglobin 11.6 g/dL (12.0-16.0); Mean Corpuscular Hgb 26.9 pg (27.0-31.0); Mean Corpuscular Volume 81.7 fL (81.0-99.0); Mean Platelet Volume 12.6 fL (7.4-10.4); Nucleated Red Blood Cells % 0 %; Platelet Count 139 10^3/uL (130-400); Red Blood Cell Count 4.31 10^6/uL (4.20-5.40); Red Cell Dist. Width 15.2 % (11.5-14.5); White Blood Cell Count 9.9 10^3/uL (4.8-10.8)
[2024-02-06 05:55] LABS: Vancomycin Random 12.1 ug/ml
[2024-02-06] MEDS: ZOSYN 50 IV ×3 (05:56→17:14)
[2024-02-06 06:00] VITALS: BMI 19.7
[2024-02-06 06:13] LABS: Blood Urea Nitrogen 24 mg/dl (7-17); Calcium 9.2 mg/dl (8.4-10.2); Carbon Dioxide 25 mmol/L (22-30); Chloride 99 mmol/L (98-107); Estimated Creatinine Clearance 26 ml/min; Glucose 165 mg/dl (70-99); Potassium 3.4 mmol/L (3.5-5.1); Sodium 136 mmol/L (135-145); eGFR 36.19
--- NOTE | 2024-02-06 06:41 | PHA.VAN.FU ---
Vancomycin Assessment / Plan
- Assessment
Renal Function: SCR Increasing (SCr 1.2->1.4)
WBC's are: WNL
In the past 24 hrs, patient has been: Afebrile
Concomitant Antimicrobials: piperacillin-tazobactam
- Assessment - Therapeutic Drug Monitoring
Random Level: 12.1 ~20 h post 750 mg dose
- Dosing Plan
Continue: to dose by level
Dosing by Level: Re-dose today (750 mg)
Revascular provedure , watching renal function closely. Continue to dose by level
- Monitoring Plan
Random Level: 6/2 am
- Follow Up
Pharmacy will continue to follow.
Vancomycin Follow UP
- -
Patient Age: 88
Patient Sex: Female
Vancomycin Day #: 3
Indication: Skin And Soft Tissue
Requesting Provider: Dr. Ramirez
Pertinent Antimicrobial Allergies:
doxycycline / tetracyclines - terrible upset stomach, nausea
Height / Weight:
Height 5 ft 8 in
Actual Weight 58.598 kg
Pertinent Past Medical History: DM 2, PAD, CKD
- Vital Signs / Lab Results
Temp Pulse Resp BP Pulse Ox
97.3 F 80 16 108/44 93
02/05/24 23:35 02/05/24 23:35 02/05/24 23:35 02/05/24 23:35 02/05/24 23:35
Lab Results - Hematology
02/03/24 02/04/24 02/06/24
13:45 07:55 05:24
WBC 11.1 H 10.1 9.9
Band Neutrophils 0
Lab Results - Chemistry
02/03/24 02/04/24 02/06/24
13:45 07:55 05:24
BUN 36 H 32 H 24 H
Creatinine 1.3 H 1.2 H 1.4 H
Estimated Creat Clear 31 26
Albumin 4.1 3.3 L
02/03/24
13:45
Lactic Acid 1.4
Microbiology Results
02/04/24 08:25 MRSA Screen - Final
Nose No Methicillin Resistant Staphylococcus aureus isolated.
02/03/24 13:45 Blood Culture - Preliminary
Blood/Venous No Growth in 48 hours- Final report to follow
02/03/24 22:33 Wound Culture - Preliminary
Toe Gram Stain - Preliminary
Therapeutic Drug Monitoring
Random Vancomycin 12.1 ug/ml 02/06/24 05:24
[2024-02-06 07:18] LABS: Glucose - Point of Care 153 mg/dl (70-99)
[2024-02-06 07:23] VITALS: BP 120/43
[2024-02-06 08:39] LABS: Segmented Neutrophils 72 % (42-75)
[2024-02-06 08:40] LABS: Absolute Neutrophils -Man Diff 7.1 10^3/uL (1.4-6.5); Band Neutrophils 0 % (0-3); Myelocytes 1 % (-)
[2024-02-06] MEDS: LOW STRENGTH ASPIRIN 81 MG PO (08:50)
[2024-02-06] MEDS: OCUVITE SOFTGEL 1 CAP PO ×2 (08:50→20:24)
[2024-02-06] MEDS: PROTONIX 40 MG PO (08:50)
[2024-02-06] MEDS: VANCOCIN 150 IV (08:50)
[2024-02-06] MEDS: ELIQUIS 5 MG PO ×2 (08:50→20:24)
[2024-02-06] MEDS: TAPAZOLE 5 MG PO (08:51)
[2024-02-06] MEDS: FEOSOL 325 MG PO (08:51)
[2024-02-06] MEDS: VITAMIN D3 (cholecalciferol) 25 MCG PO (08:51)
[2024-02-06] MEDS: TRIAMCINOLONE 0.1% OINTMENT 1 APPLIC TOPICAL (08:51)
[2024-02-06] MEDS: VITAMIN B-12 1000 MCG PO (08:51)
[2024-02-06] MEDS: LASIX 40 MG PO (08:51)
[2024-02-06] MEDS: NOVOLOG FLEXPEN-LOW RESISTANCE 1 UNITS SC (08:52)
[2024-02-06] MEDS: FLUSH (NSS) 2 FLUSH IV ×2 (08:53→17:15)
[2024-02-06 09:03] LABS: Lymphocytes 9 % (20-51); Monocytes 18 % (2-9)
[2024-02-06 09:04] LABS: Anisocytosis Slight; Normal RBC Morphology No; Platelets Checked YES
[2024-02-06 09:05] LABS: Ovalocytes FEW; Total Cells Counted 100
[2024-02-06 12:02] LABS: Glucose - Point of Care 250 mg/dl (70-99)
--- NOTE | 2024-02-06 12:07 | W.PN.HOSP.TC ---
Today's Communication/Plan
-
continue to treat cellulitis
await whether wound cx Staph is MRSA and then based on this, consider abx adjustment
Assessment / Plan
Assessment / Plan
# New onset right lower extremity wounds/cellulitis likely secondary to underlying peripheral arterial disease
Still with active cellulitis as of 02/05
-Blood cultures neg,
wound culture Staph aureus, enterococcus, gm neg bacilli of 2 morphologies (spoke to micro and requested to check if wound staph is MRSA, if not, will change from Vanco to Zosyn alone) Nasal swab - no MRSA seen
-Vancomycin/Zosyn
-Vascular surgery consulted underwent RLE angiogram, angioplasty R behind knee popliteal artery with 4mm standard balloon, 5mm DCB; Placement of stent R above knee/behind knee popliteal artery (5mm x 100mm Zilver PTX)
-Continue aspirin, okay with Vasc to resume Eliquis
-Dilaudid for pain, continue baclofen
RLE venous doppler: No evidence of deep venous thrombosis of the right lower extremity.
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
# Chronic left ankle wound
-Wound appears to be healing after the intervention
-Wound care consulted
Paroxysmal atrial fibrillation/flutter status post ablation
-Continue diltiazem
-Resumed Eliquis
EKG: NORMAL SINUS RHYTHM
LEFT BUNDLE BRANCH BLOCK
ABNORMAL ECG
WHEN COMPARED WITH ECG OF 08-JAN-2024 07:41,
NO SIGNIFICANT CHANGE WAS FOUND
Coronary artery disease status post stents
-Continue aspirin, will need to be dc on ASA
Chronic left bundle branch block
Hypertrophic cardiomyopathy
Chronic HFpEF
-Continue Lasix
Moderate mitral stenosis
Essential hypertension
-Continue propranolol
Hyperthyroidism
-Continue methimazole
Type 2 diabetes - IDDM
-Continue Lantus 20 units
-Continue insulin sliding
diet resumed
glu 83-345 past 30 hours
a1c 7.1%
COPD
-Continue inhalers
Chronic anemia
-Hemoglobin stable
-Continue ferrous sulfate
History of prior GI bleed
History of CVA
Hyperlipidemia
GERD
-Continue proton
Anxiety/depression
-Continue Ativan
Chronic kidney disease
-Renal function at baseline
DNR/DNI
DVT prophylaxis�resume Eliquis
Regular diet
Wound Care consult
discussed with Vasc Surg
Long discussion with pt 02/05 regarding dc plans. she lives on her own. Is still having a lot of pain, doubt will be able to care for self post dc in near future. CM made aware that SNF may be indicated
Anticipated Discharge: > 48 hours
Subjective/Interval History
-
Date of Service: February 06, 2024
Still with pain in right leg
Objective Data
-
Labs:
Laboratory Results
02/06/24
05:24
WBC 9.9
Hgb 11.6 L
Hct 35.2 L
Plt Count 139
Sodium 136
Potassium 3.4 L
Chloride 99
Carbon Dioxide 25
BUN 24 H
Creatinine 1.4 H
Glucose 165 H
Calcium 9.2
Vital Signs:
Vital Signs
Temp Pulse Resp BP Pulse Ox
97.5 F 78 17 120/43 97
02/06/24 07:23 02/06/24 07:23 02/06/24 07:23 02/06/24 07:23 02/06/24 07:23
I&O
02/05/24 02/06/24 02/07/24
06:59 06:59 06:59
Intake Total 550 / 550 1320 / 1320
Output Total 150 / 150
Balance 400 / 400 1320 / 1320
Review of Systems
-
History Source: Patient and Coordinated Provider
Constitutional: Denies Fever
EENT: Reports No Symptoms Reported
Respiratory: Reports No Symptoms
Cardiac: Reports No Symptoms
Abdomen/GI: Reports No Symptoms
Musculoskeletal: Reports Myalgias (rt leg pain)
Physical Exam
-
General: Well Developed, Well Nourished and No Apparent Distress
HEENT: Normocephalic, Atraumatic and Moist Mucous Membranes
Respiratory: Clear to Auscultation; Negative Wheezes, Rales or Rhonchi
Cardiac: S1/S2, Irregular Rhythm and Murmur (3/6sem)
GI: Soft, Nontender and Nondistended
Musculoskeletal: Other (rt foot warm to touch)
Skin: Rash (rt leg changes with probable cellulitis, chronic wounds, erythema and subcutaneous swelling, Rt lower leg tissue remains warm, red and tender)
Neuro: Awake, Alert and Oriented
--- NOTE | 2024-02-06 12:44 | W.PN.VS ---
Today's Communication / Plan
-
can be discharged with local wound care
Assessment/Plan
-
Assessment: 88-year-old female POD #2 RLE angiogram, angioplasty R behind knee popliteal artery with 4mm standard balloon, 5mm DCB; Placement of stent R above knee/behind knee popliteal artery (5mm x 100mm Zilver PTX)
Plan:
Can restart anticoagulation from a vascular surgery perspective
Continue aspirin 81 mg p.o. daily
Patient will follow-up in our office with repeat ultrasounds in roughly 3 to 4 weeks, appointment placed in discharge instructions
Subjective Data
-
Date of Service: February 06, 2024
Pt seen and examined at bedside. Resting comfortably. pain well controlled
Objective Data
-
Vital Signs
Temp Pulse Resp BP Pulse Ox
97.5 F 78 17 120/43 97
02/06/24 07:23 02/06/24 07:23 02/06/24 07:23 02/06/24 07:23 02/06/24 08:44
Intake and Output
02/05/24 02/06/24 02/07/24
06:59 06:59 06:59
Intake Total 550 / 550 1320 / 1320
Output Total 150 / 150
Balance 400 / 400 1320 / 1320
Intake:
Oral fluids 350 / 350 1320 / 1320
IV fluids (Total) 100 / 100
nss 100 / 100
IV piggybacks 100 / 100
Output:
Urine, Voided 150 / 150
Other:
Number of approximated MODERATE 1 3
amounts of urine
Number of approximated LARGE 2
amounts of urine
How many times incontinent 1
How many times incontinent 2 1
MODERATE amount urine
Lab Results
02/06/24 05:24
02/06/24 05:24
Calcium 9.2 mg/dl (8.4-10.2) 02/06/24 05:24
Total Bilirubin 0.7 mg/dl (0.2-1.3) 02/04/24 07:55
AST 19 U/L (14-36) 02/04/24 07:55
ALT 14 U/L (0-35) 02/04/24 07:55
Alkaline Phosphatase 76 U/L (38-126) 02/04/24 07:55
Total Protein 5.6 g/dl (6.3-8.2) L 02/04/24 07:55
Albumin 3.3 g/dl (3.5-5.0) L 02/04/24 07:55
Physical Exam
-
L groin: no hematoma; soft
R foot: DP signal
[2024-02-06] MEDS: NOVOLOG FLEXPEN-LOW RESISTANCE 3 UNITS SC (12:53)
[2024-02-06] MEDS: TYLENOL #3 1 TABLET PO (12:54)
[2024-02-06 15:46] VITALS: BP 162/57
[2024-02-06 16:33] LABS: Glucose - Point of Care 209 mg/dl (70-99)
[2024-02-06] MEDS: NOVOLOG FLEXPEN-LOW RESISTANCE 2 UNITS SC (17:14)
[2024-02-06] MEDS: DILAUDID 0.5 MG IV (17:18)
[2024-02-06] MEDS: SPIRIVA RESPIMAT 2.5 MCG 2 PUFF INH (17:57)
[2024-02-06] MEDS: LIORESAL 10 MG PO (20:26)
[2024-02-06] MEDS: CARDIZEM CD 120 MG PO (20:27)
[2024-02-06] MEDS: LANTUS 0.200000000000000011 UNITS SC (22:15)
[2024-02-06 22:17] LABS: Glucose - Point of Care 352 mg/dl (70-99)
--- NOTE | 2024-02-06 22:21 | PTCARENOTE ---
pt BS 352 however was observed eating sugar gram crackers and a piece of chocolate. Lantus administered as ordered. Pt asymptomatic.
[2024-02-06 23:35] VITALS: BP 122/54
[2024-02-07] MEDS: ZOSYN 50 IV ×4 (00:10→17:28)
[2024-02-07] MEDS: TYLENOL #3 1 TABLET PO ×3 (00:11→23:24)
[2024-02-07 06:00] VITALS: BMI 20.1
[2024-02-07 06:38] LABS: Vancomycin Random 12.5 ug/ml
[2024-02-07 07:47] VITALS: BP 111/43
--- NOTE | 2024-02-07 07:52 | PHA.VAN.FU ---
Vancomycin Assessment / Plan
- Assessment
Renal Function: No New Labs Today
WBC's are: WNL
In the past 24 hrs, patient has been: Afebrile
Concomitant Antimicrobials: piperacillin/tazo
- Assessment - Therapeutic Drug Monitoring
Random Level: 12.5 ~ 21 hours after 750 mg dose yesterday
- Dosing Plan
Continue: dosing by random level - rising SCr
Dosing by Level: Re-dose today (750 mg x 1 dose)
- Monitoring Plan
Random Level: 02/08/24 0600
- Follow Up
Pharmacy will continue to follow.
Vancomycin Follow UP
- -
Patient Age: 88
Patient Sex: Female
Vancomycin Day #: 3
Indication: Skin And Soft Tissue
Requesting Provider: Dr. Ramirez
Pertinent Antimicrobial Allergies:
doxycycline / tetracyclines - terrible upset stomach, nausea
Height / Weight:
Height 5 ft 8 in
Actual Weight 60.056 kg
Pertinent Past Medical History: DM 2, PAD, CKD
- Vital Signs / Lab Results
Temp Pulse Resp BP Pulse Ox
97.8 F 88 18 122/54 98
02/06/24 23:35 02/06/24 23:35 02/06/24 23:35 02/06/24 23:35 02/06/24 23:35
Lab Results - Hematology
02/04/24 02/06/24
07:55 05:24
WBC 10.1 9.9
Band Neutrophils 0 0
Lab Results - Chemistry
02/04/24 02/06/24
07:55 05:24
BUN 32 H 24 H
Creatinine 1.2 H 1.4 H
Estimated Creat Clear 31 26
Albumin 3.3 L
Microbiology Results
02/03/24 22:33 Wound Culture - Preliminary
Toe Staphylococcus aureus
Enterococcus species
Gram negative bacilli
Gram Stain - Final
02/03/24 13:45 Blood Culture - Preliminary
Blood/Venous No Growth in 72 hours- Final report to follow
02/04/24 08:25 MRSA Screen - Final
Nose No Methicillin Resistant Staphylococcus aureus isolated.
Therapeutic Drug Monitoring
Random Vancomycin 12.5 ug/ml 02/07/24 06:01
[2024-02-07 07:54] LABS: Glucose - Point of Care 273 mg/dl (70-99)
[2024-02-07] MEDS: VANCOCIN 150 IV (09:29)
[2024-02-07] MEDS: NOVOLOG FLEXPEN-LOW RESISTANCE 3 UNITS SC (09:30)
[2024-02-07] MEDS: PROTONIX 40 MG PO (09:34)
[2024-02-07] MEDS: OCUVITE SOFTGEL 1 CAP PO ×2 (09:34→20:04)
[2024-02-07] MEDS: LOW STRENGTH ASPIRIN 81 MG PO (09:34)
[2024-02-07] MEDS: LASIX 40 MG PO (09:35)
[2024-02-07] MEDS: VITAMIN D3 (cholecalciferol) 25 MCG PO (09:35)
[2024-02-07] MEDS: VITAMIN B-12 1000 MCG PO (09:35)
[2024-02-07] MEDS: TAPAZOLE 5 MG PO (09:35)
[2024-02-07] MEDS: TRIAMCINOLONE 0.1% OINTMENT 1 APPLIC TOPICAL (09:35)
[2024-02-07] MEDS: FEOSOL 325 MG PO (09:35)
[2024-02-07] MEDS: ELIQUIS 5 MG PO ×2 (09:35→20:03)
[2024-02-07 12:25] LABS: Glucose - Point of Care 348 mg/dl (70-99)
--- NOTE | 2024-02-07 12:46 | PTCARENOTE ---
Pt to be transferred to the 4th floor, Report given to Dhruv, no questions.
[2024-02-07 13:00] VITALS: BP 115/59
[2024-02-07] MEDS: NOVOLOG FLEXPEN-LOW RESISTANCE 4 UNITS SC ×2 (13:14→17:28)
[2024-02-07] MEDS: DILAUDID 0.5 MG IV ×2 (13:17→17:33)
--- NOTE | 2024-02-07 13:48 | W.PN.HOSP.TC ---
Today's Communication/Plan
-
will need decision on post dc abx
hopefully dc to SNF next several days
Assessment / Plan
Assessment / Plan
# New onset right lower extremity wounds/cellulitis likely secondary to underlying peripheral arterial disease. Still with a lot of pain
Still with active cellulitis as of 02/06, but finally showing evidence of resolution
-Blood cultures neg,
wound culture Staph aureus (MRSA), enterococcus, gm neg bacilli of 2 morphologies Nasal swab - no MRSA seen
MRSA cellulitis slowly improving. Consider Inf Dis consult for dc abx planning, but for now continue Vanco.
-Vancomycin/Zosyn
-Vascular surgery consulted underwent RLE angiogram, angioplasty R behind knee popliteal artery with 4mm standard balloon, 5mm DCB; Placement of stent R above knee/behind knee popliteal artery (5mm x 100mm Zilver PTX)
-Continue aspirin, okay with Vasc to resume Eliquis
-Dilaudid for pain, continue baclofen
RLE venous doppler: No evidence of deep venous thrombosis of the right lower extremity.
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
# Chronic left ankle wound
-Wound appears to be healing after the intervention
-Wound care consulted
Paroxysmal atrial fibrillation/flutter status post ablation
-Continue diltiazem
-Resumed Eliquis
EKG: NORMAL SINUS RHYTHM
LEFT BUNDLE BRANCH BLOCK
ABNORMAL ECG
WHEN COMPARED WITH ECG OF 08-JAN-2024 07:41,
NO SIGNIFICANT CHANGE WAS FOUND
Coronary artery disease status post stents
-Continue aspirin, will need to be dc on ASA
Chronic left bundle branch block
Hypertrophic cardiomyopathy
Chronic HFpEF
-Continue Lasix
Moderate mitral stenosis
Essential hypertension
-Continue propranolol
Hyperthyroidism
-Continue methimazole
Type 2 diabetes - IDDM
-Continue Lantus 20 units
-Continue insulin sliding
diet resumed
glu 83-345 past 30 hours
a1c 7.1%
COPD
-Continue inhalers
Chronic anemia
-Hemoglobin stable
-Continue ferrous sulfate
History of prior GI bleed
History of CVA
Hyperlipidemia
GERD
-Continue proton
Anxiety/depression
-Continue Ativan
Chronic kidney disease
-Renal function at baseline
DNR/DNI
DVT prophylaxis�resume Eliquis
Regular diet
Wound Care consult
discussed with Vasc Surg
Long discussion with pt 02/05 regarding dc plans. she lives on her own. Is still having a lot of pain, doubt will be able to care for self post dc in near future. CM made aware that SNF may be indicated, pt now agreeable to go to SNF
Anticipated Discharge: 24 - 48 hours
Subjective/Interval History
-
Date of Service: February 07, 2024
still with a lot of rt leg pain
Objective Data
-
Vital Signs:
Vital Signs
Temp Pulse Resp BP Pulse Ox
98.4 F 83 16 111/43 94
02/07/24 07:47 02/07/24 07:47 02/07/24 07:47 02/07/24 07:47 02/07/24 07:47
I&O
02/06/24 02/07/24 02/08/24
06:59 06:59 06:59
Intake Total 1320 / 1320 1020 / 1020
Balance 1320 / 1320 1020 / 1020
Review of Systems
-
History Source: Patient and Coordinated Provider
Constitutional: Denies Fever
EENT: Reports No Symptoms Reported
Respiratory: Reports No Symptoms
Cardiac: Reports No Symptoms
Abdomen/GI: Reports No Symptoms
Musculoskeletal: Reports Myalgias (rt leg pain)
Physical Exam
-
General: Well Developed, Well Nourished and No Apparent Distress
HEENT: Normocephalic, Atraumatic and Moist Mucous Membranes
Respiratory: Clear to Auscultation; Negative Wheezes, Rales or Rhonchi
Cardiac: S1/S2, Irregular Rhythm and Murmur (3/6sem)
GI: Soft, Nontender and Nondistended
Musculoskeletal: Other (rt foot warm to touch)
Skin: Rash (rt leg changes with probable cellulitis significantly less pronounced today, chronic wounds, erythema and subcutaneous swelling, Rt lower leg tissue remains warm, red and tender)
Neuro: Awake, Alert and Oriented
[2024-02-07 15:33] VITALS: BP 98/44
[2024-02-07 17:20] LABS: Glucose - Point of Care 309 mg/dl (70-99)
[2024-02-07] MEDS: SPIRIVA RESPIMAT 2.5 MCG 2 PUFF INH (19:51)
[2024-02-07 21:47] LABS: Glucose - Point of Care 336 mg/dl (70-99)
[2024-02-07] MEDS: LANTUS 0.200000000000000011 UNITS SC (21:53)
[2024-02-07] MEDS: LIORESAL 10 MG PO (21:54)
[2024-02-07] MEDS: CARDIZEM CD 120 MG PO (21:54)
[2024-02-07 23:24] VITALS: BP 119/49
[2024-02-08] MEDS: DILAUDID 0.5 MG IV ×2 (06:00→09:43)
[2024-02-08 06:13] LABS: Vancomycin Random 13.1 ug/ml
[2024-02-08 07:00] VITALS: BP 111/48
[2024-02-08] MEDS: FEOSOL 325 MG PO (08:00)
[2024-02-08] MEDS: TAPAZOLE 5 MG PO (08:00)
[2024-02-08] MEDS: OCUVITE SOFTGEL 1 CAP PO ×2 (08:00→20:23)
[2024-02-08] MEDS: VITAMIN B-12 1000 MCG PO (08:01)
[2024-02-08] MEDS: VITAMIN D3 (cholecalciferol) 25 MCG PO (08:01)
[2024-02-08] MEDS: LASIX 40 MG PO (08:01)
[2024-02-08] MEDS: PROTONIX 40 MG PO (08:02)
[2024-02-08] MEDS: LOW STRENGTH ASPIRIN 81 MG PO (08:02)
[2024-02-08] MEDS: ELIQUIS 5 MG PO ×2 (08:02→20:22)
[2024-02-08] MEDS: TRIAMCINOLONE 0.1% OINTMENT 1 APPLIC TOPICAL (08:03)
[2024-02-08 08:37] LABS: Glucose - Point of Care 206 mg/dl (70-99)
--- NOTE | 2024-02-08 09:08 | W.PN.HOSP.TC ---
Today's Communication/Plan
-
Antibiotics. Anticoagulation. Discharge planning in progress
Assessment / Plan
Assessment / Plan
Physical exam:
General: Well Developed, Well Nourished and No Apparent Distress
HEENT: Normocephalic, Atraumatic and Moist Mucous Membranes
Respiratory: Clear to Auscultation; Negative Wheezes, Rales or Rhonchi
Cardiac: Regular Rhythm and S1/S2
GI: Soft, Nontender and Nondistended
Musculoskeletal: Chronic wounds on legs. No hematoma groin. No Clubbing, No Cyanosis and No Edema
Neuro: Awake, Alert and Oriented
Psych: Calm
A/P:
# New onset right lower extremity wounds/cellulitis likely secondary to underlying peripheral arterial disease. Still with a lot of pain
Still with active cellulitis as of 02/06, but finally showing evidence of resolution. Today on 02/07 not much of active infection so we will switch to oral antibiotics likely tomorrow.
-Blood cultures neg,
wound culture Staph aureus (MRSA), enterococcus, gm neg bacilli of 2 morphologies Nasal swab - no MRSA seen
MRSA cellulitis slowly improving. Inf Dis consult for dc abx planning, but for now continue Vanco.
-Vancomycin/Zosyn
-Vascular surgery consulted underwent RLE angiogram, angioplasty R behind knee popliteal artery with 4mm standard balloon, 5mm DCB; Placement of stent R above knee/behind knee popliteal artery (5mm x 100mm Zilver PTX)
-Continue aspirin, okay with Vasc to resume Eliquis
-Dilaudid for pain, continue baclofen
RLE venous doppler: No evidence of deep venous thrombosis of the right lower extremity.
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
# Chronic left ankle wound
-Wound appears to be healing after the intervention
-Wound care consulted
Paroxysmal atrial fibrillation/flutter status post ablation
-Continue diltiazem
-Resumed Eliquis
EKG: NORMAL SINUS RHYTHM
LEFT BUNDLE BRANCH BLOCK
ABNORMAL ECG
WHEN COMPARED WITH ECG OF 08-JAN-2024 07:41,
NO SIGNIFICANT CHANGE WAS FOUND
Coronary artery disease status post stents
-Continue aspirin, will need to be dc on ASA
Chronic left bundle branch block
Hypertrophic cardiomyopathy
Chronic HFpEF
-Continue Lasix
Moderate mitral stenosis
Essential hypertension
-Continue propranolol
Hyperthyroidism
-Continue methimazole
Type 2 diabetes - IDDM
-Continue Lantus 20 units
-Continue insulin sliding
diet resumed
glu 83-345 past 30 hours
a1c 7.1%
COPD
-Continue inhalers
Chronic anemia
-Hemoglobin stable
-Continue ferrous sulfate
History of prior GI bleed
History of CVA
Hyperlipidemia
GERD
-Continue proton
Anxiety/depression
-Continue Ativan
Chronic kidney disease
-Renal function at baseline
DNR/DNI
DVT prophylaxis�resume Eliquis
Regular diet
Wound Care consult
discussed with Vasc Surg
Long discussion with pt 02/05 regarding dc plans. she lives on her own. Is still having a lot of pain, doubt will be able to care for self post dc in near future. CM made aware that SNF may be indicated, pt now agreeable to go to SNF. Patient
undecided on 02/07 upon d/c discussions and wants to go back home with home health at this point. Discussed with patient we will plan for definitive discharge tomorrow that she will need to let us know final decision.
Anticipated Discharge: 24 - 48 hours
Subjective/Interval History
-
Date of Service: February 08, 2024
Patient with some feet discomfort. No chest pain or shortness of breath
Objective Data
-
Vital Signs:
Vital Signs
Temp Pulse Resp BP Pulse Ox
98.1 F 77 16 111/48 96
02/08/24 07:00 02/08/24 07:00 02/08/24 07:00 02/08/24 07:00 02/08/24 07:00
I&O
02/07/24 02/08/24 02/09/24
06:59 06:59 06:59
Intake Total 1020 / 1020 530 / 530
Balance 1020 / 1020 530 / 530
[2024-02-08] MEDS: NOVOLOG FLEXPEN-LOW RESISTANCE 2 UNITS SC (09:26)
[2024-02-08 09:52] LABS: Hematocrit 35.4 % (37.0-47.0); Hemoglobin 11.4 g/dL (12.0-16.0); Mean Corp Hgb Conc. 32.2 g/dL (33.0-37.0); Mean Corpuscular Hgb 26.7 pg (27.0-31.0); Mean Corpuscular Volume 82.9 fL (81.0-99.0); Mean Platelet Volume 11.9 fL (7.4-10.4); Platelet Count 165 10^3/uL (130-400); Red Blood Cell Count 4.27 10^6/uL (4.20-5.40); Red Cell Dist. Width 15.6 % (11.5-14.5); White Blood Cell Count 7.3 10^3/uL (4.8-10.8)
[2024-02-08 10:11] LABS: Blood Urea Nitrogen 21 mg/dl (7-17); Carbon Dioxide 30 mmol/L (22-30); Chloride 97 mmol/L (98-107); Estimated Creatinine Clearance 37 ml/min; Glucose 187 mg/dl (70-99); Potassium 3.3 mmol/L (3.5-5.1); Sodium 138 mmol/L (135-145); eGFR 54.19
[2024-02-08 11:54] LABS: Glucose - Point of Care 387 mg/dl (70-99)
--- NOTE | 2024-02-08 11:54 | CM ---
Spoke with patient bedside.
PT recommending skilled rehab.
TC from [place] from [facility], she can offer a bed.
patient in agreement for short term rehab.
Per MD, probable d/c tomorrow.
No insurance auth needed.
Plan: [facility] tomorrow.
[2024-02-08] MEDS: TYLENOL #3 1 TABLET PO ×2 (11:57→23:19)
[2024-02-08] MEDS: NOVOLOG FLEXPEN-LOW RESISTANCE 5 UNITS SC (11:57)
[2024-02-08 15:00] VITALS: BP 105/41
[2024-02-08 17:11] LABS: Glucose - Point of Care 420 mg/dl (70-99)
--- NOTE | 2024-02-08 17:34 | CON.ID ---
Consultation
-
Date/Time Consultation Requested: 02/08/24 16:01
Date/Time Consultation Performed: 02/08/24 16:47
Requesting Provider: Dr Morris
Performing Provider: Dr Benz
Reason for Consultation: infected wound eval
Chief Complaint / Past History
Chief Complaint
right lower extremity open wounds
History of Present Illness
Ms Castellano is an 88 year old feamle with history of CAD, CHF who presented here for redness and wounds of the RLE with pgoressive swelling and tenderness and drainge from the foot. Also with severe pain in the BL lower extremities. The wounds
occurred spontaneously and are acute. No fevvers or chills. Of note with recent left tibioperoneal trunk occlusion and had arteriogram and intravascular lithotripsy on January 08, 2024.
Since arrival here she has been afebrile, bp stable, wbc initially 11, resolved hd 2 and remains without leukocytosis, hgb 11, plt 165, L shift was present on arrival resolved by HD3, cr initially 1.3 now 1.0 a1c 7.1, wound cx with MRSA,
enterococcus and gnr, was on vancomycin and zosyn which was discontinued last night, 02/04 she underwent angioplasty and stenting of the RLE. ID is consulted for assistance with management.
Past History
Additional Past Medical History:
paroxysmal atrial fibrillation/flutter status post ablation on Eliquis, coronary artery disease, moderate mitral stenosis, hypertension, chronic left bundle branch block, hypertrophic cardiomyopathy, HFpEF, diabetes, COPD, peripheral arterial
disease status post stents, anemia, prior GI bleeding
Additional Past Surgical History:
(Cardiac ablation) and Gynecological (LEANN/BSO)
Allergy History:
acetaminophen [From [facility]] Allergy (Verified 02/03/24 23:37)
Nausea
atorvastatin Allergy (Verified 02/03/24 18:48)
muscle pain and leg cramps
dabigatran etexilate Allergy (Verified 02/03/24 13:27)
patient states esophageal spasms
dabigatran etexilate mesylate [From Pradaxa] Allergy (Verified 02/03/24 13:27)
esophageal spasm
doxycycline Allergy (Verified 02/03/24 13:27)
terrible upset stomache, nausea all through
gabapentin Allergy (Verified 02/03/24 18:48)
Muscle pain
magnesium Allergy (Verified 02/03/24 13:27)
diarrhea
nifedipine Allergy (Verified 02/03/24 18:48)
Muscle pain
Tetracyclines Allergy (Verified 02/03/24 13:27)
terrible upset stomache, nausea all through
Medications Reviewed: Yes
Social History
Tobacco: Non-Smoker
Alcohol: None
Drug: None
Family History
Family History: Not Pertinent
Review of Systems
Review of Systems
General: Negative Fever or Chills
All systems: All other systems were reviewed and were negative
Vital Signs
Temp Pulse Resp BP Pulse Ox
98.9 F 79 16 105/41 99
02/08/24 15:00 02/08/24 15:00 02/08/24 15:00 02/08/24 15:00 02/08/24 15:00
Physical Exam
Physical Exam
Constitutional: No Acute Distress
Cardiovascular: Regular Rate and S1/S2; Negative Murmur or Rub
Pulmonary: Clear and Symmetric; Negative Wheezes, Rales or Rhonchi
Gastrointestinal: Soft, Non Tender, Non Distended and Normal Bowel Sounds
Skin: Warm and Dry; Negative Rash or Jaundice
Wound: Other (RLE wound, no current cellulitis - erythema, warmth, tenderness. There is minimal serous drainage.)
Lab / Diagnostic Study Results
02/08/24 09:40
Abs Immat Gran (auto) 0.1 10^3/uL (0-0.05) H 02/06/24 05:24
Absolute Neuts (auto) 6.4 10^3/uL (1.4-6.5) 02/06/24 05:24
Absolute Lymphs (auto) 0.9 10^3/uL (1.2-3.4) L 02/06/24 05:24
Absolute Monos (auto) 2.4 10^3/uL (0.1-0.6) H 02/06/24 05:24
Absolute Basos (auto) 0.1 10^3/uL (0-0.2) 02/06/24 05:24
Total Counted 100 02/06/24 05:24
Immature Gran % 1.1 % (0-0.5) H 02/06/24 05:24
Neutrophils % 64.3 % (42.2-75.2) 02/06/24 05:24
Lymphocytes % 9.3 % (20.5-51.1) L 02/06/24 05:24
Monocytes % 24.6 % (1.7-9.3) H 02/06/24 05:24
Eosinophils % 0.2 % (0-6) 02/06/24 05:24
Basophils % 0.5 % (0-2) 02/06/24 05:24
Abs Neuts (Manual) 7.1 10^3/uL (1.4-6.5) H 02/06/24 05:24
Segmented Neutrophils 72 % (42-75) 02/06/24 05:24
Band Neutrophils 0 % (0-3) 02/06/24 05:24
Lymphocytes (Manual) 9 % (20-51) L 02/06/24 05:24
Eosinophils (Manual) 1 % (0-6) 02/04/24 07:55
Lactic Acid 1.4 mmol/L (0.7-2.0) 02/03/24 13:45
Microbiology Results
Micro:
02/03/24 13:45 Blood Culture - Final
Blood/Venous No Growth - Final Report
02/03/24 22:33 Wound Culture - Final
Toe Staph aureus MRSA
Enterococcus species
Gram negative bacilli
Gram Stain - Final
02/04/24 08:25 MRSA Screen - Final
Nose No Methicillin Resistant Staphylococcus aureus isolated.
Assessment / Plan
Cellulitis
Wound Infection
Intolerance to doxycycline
- day 6 of 10 of antibiotics
- switched to doxycycline and augmentin; she will likely tolerate doxycycline if taken with food; if nausea can use ondansetron. She is agreeable to this plan
- stable for dc from ID perspective, follow up with vascular surgery
[2024-02-08] MEDS: VIBRAMYCIN 100 MG PO (17:50)
[2024-02-08] MEDS: KCL 40 MEQ PO ×2 (17:50→20:22)
[2024-02-08 17:52] LABS: Glucose 334 mg/dl (70-99)
[2024-02-08] MEDS: NOVOLOG FLEXPEN-LOW RESISTANCE SC (18:07)
[2024-02-08] MEDS: NOVOLOG FLEXPEN 8 UNITS SC (18:26)
[2024-02-08] MEDS: SPIRIVA RESPIMAT 2.5 MCG 2 PUFF INH (19:28)
[2024-02-08] MEDS: AUGMENTIN 875 MG/125 MG 1 TABLET PO (20:22)
[2024-02-08 20:41] LABS: Glucose - Point of Care 297 mg/dl (70-99)
[2024-02-08] MEDS: CARDIZEM CD 120 MG PO (21:50)
[2024-02-08] MEDS: LANTUS 0.200000000000000011 UNITS SC (21:50)
[2024-02-08] MEDS: LIORESAL 10 MG PO (21:51)
[2024-02-08 21:55] LABS: Glucose - Point of Care 235 mg/dl (70-99)
[2024-02-08 23:44] VITALS: BP 109/52
[2024-02-09 06:00] VITALS: BMI 19.7
[2024-02-09] MEDS: VIBRAMYCIN 100 MG PO (06:24)
[2024-02-09 07:00] VITALS: BP 120/56
--- NOTE | 2024-02-09 08:26 | W.PN.HOSP.TC ---
Addendum entered and electronically signed by Maurizio Morris MD 02/09/24 11:25:
Severe protein calorie malnutrition
Original Note:
Today's Communication/Plan
-
Discharge planning today.
Assessment / Plan
Assessment / Plan
Physical exam:
General: Well Developed, Well Nourished and No Apparent Distress
HEENT: Normocephalic, Atraumatic and Moist Mucous Membranes
Respiratory: Clear to Auscultation; Negative Wheezes, Rales or Rhonchi
Cardiac: Regular Rhythm and S1/S2
GI: Soft, Nontender and Nondistended
Musculoskeletal: Chronic wounds on legs. No hematoma groin. No Clubbing, No Cyanosis and No Edema
Neuro: Awake, Alert and Oriented
Psych: Calm
A/P:
# New onset right lower extremity wounds/cellulitis likely secondary to underlying peripheral arterial disease. Pain resolved
Still with active cellulitis as of 02/06, but finally showing evidence of resolution. Today on 02/07 not much of active infection so antibiotics switched to oral since yesterday.
-Blood cultures neg,
wound culture Staph aureus (MRSA), enterococcus, gm neg bacilli of 2 morphologies Nasal swab - no MRSA seen
MRSA cellulitis slowly improving. Inf Dis consult for dc abx planning--> appreciated ID input.
-Vancomycin/Zosyn changed to Augmentin and doxycycline.
-Vascular surgery consulted underwent RLE angiogram, angioplasty R behind knee popliteal artery with 4mm standard balloon, 5mm DCB; Placement of stent R above knee/behind knee popliteal artery (5mm x 100mm Zilver PTX)
-Continue aspirin, okay with Vasc to resume Eliquis
-Dilaudid for pain changed to Tylenol 3, continue baclofen
RLE venous doppler: No evidence of deep venous thrombosis of the right lower extremity.
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
# Chronic left ankle wound
-Wound appears to be healing after the intervention
-Wound care consulted
Paroxysmal atrial fibrillation/flutter status post ablation
-Continue diltiazem
-Resumed Eliquis
EKG: NORMAL SINUS RHYTHM
LEFT BUNDLE BRANCH BLOCK
ABNORMAL ECG
WHEN COMPARED WITH ECG OF 08-JAN-2024 07:41,
NO SIGNIFICANT CHANGE WAS FOUND
Coronary artery disease status post stents
-Continue aspirin, will need to be dc on ASA
Chronic left bundle branch block
Hypertrophic cardiomyopathy
Chronic HFpEF
-Continue Lasix
Moderate mitral stenosis
Essential hypertension
-Continue propranolol
Hyperthyroidism
-Continue methimazole
Type 2 diabetes - IDDM
-Continue Lantus 20 units
-Continue insulin sliding
diet resumed
a1c 7.1%
COPD
-Continue inhalers
Chronic anemia
-Hemoglobin stable
-Continue ferrous sulfate
History of prior GI bleed
History of CVA
Hyperlipidemia
GERD
-Continue proton
Anxiety/depression
-Continue Ativan
Chronic kidney disease
-Renal function at baseline
DNR/DNI
DVT prophylaxis�resume Eliquis
Regular diet
Wound Care consult
Discharge disposition to skilled rehab today. Patient agreeable.
Anticipated Discharge: Today
Subjective/Interval History
-
Date of Service: February 09, 2024
No new complaints.
Objective Data
-
Vital Signs:
Vital Signs
Temp Pulse Resp BP Pulse Ox
99.2 F 88 16 109/52 93
02/08/24 23:44 02/08/24 23:44 02/08/24 23:44 02/08/24 23:44 02/08/24 23:44
I&O
02/08/24 02/09/24 02/10/24
06:59 06:59 06:59
Intake Total 530 / 530 720 / 720
Balance 530 / 530 720 / 720
[2024-02-09] MEDS: TAPAZOLE 5 MG PO (08:36)
[2024-02-09] MEDS: PROTONIX 40 MG PO (08:36)
[2024-02-09] MEDS: ELIQUIS 5 MG PO (08:36)
[2024-02-09] MEDS: AUGMENTIN 875 MG/125 MG 1 TABLET PO (08:36)
[2024-02-09] MEDS: OCUVITE SOFTGEL 1 CAP PO (08:36)
[2024-02-09] MEDS: FEOSOL 325 MG PO (08:36)
[2024-02-09] MEDS: LOW STRENGTH ASPIRIN 81 MG PO (08:36)
[2024-02-09] MEDS: VITAMIN B-12 1000 MCG PO (08:36)
[2024-02-09] MEDS: VITAMIN D3 (cholecalciferol) 25 MCG PO (08:37)
[2024-02-09] MEDS: NOVOLOG FLEXPEN-LOW RESISTANCE 2 UNITS SC (08:37)
[2024-02-09] MEDS: LASIX 40 MG PO (08:37)
[2024-02-09] MEDS: TRIAMCINOLONE 0.1% OINTMENT 1 APPLIC TOPICAL (08:38)
[2024-02-09] MEDS: KCL 40 MEQ PO ×2 (10:29→12:46)
--- NOTE | 2024-02-09 11:13 | CM ---
Plan: [facility] today
Patient for transport via van at 2:30 pm
[facility]
Report # [phone]
--- NOTE | 2024-02-09 11:18 | W.DCSUMMARY ---
Discharge Summary
Discharge Data
Date of Admission: 02/03/24
Date of Discharge: 02/09/24
-
Pending Results: No
Hospital Course
Patient 88 years old female history of A-fib on anticoagulation, CKD, CAD, CHF, hypertension, hyperlipidemia, diabetes mellitus, PVD, presented to the hospital left lower extremity nonhealing wounds. Vascular surgery consulted. She was placed on
broad-spectrum IV antibiotics. She was taken to the operating room on 02/03 by vascular surgery and they did balloon angioplasty of the lower extremity popliteal artery with stent. Vascular surgery okay to restart aspirin and anticoagulation. She
tolerated well the start of the anticoagulation. ID was consulted. ID recommended to change antibiotics to oral to complete a 10-day course as outpatient. Patient agreed to a skilled rehab stay and she is going to be discharged to rehab today.
No other events were noticed. Patient will be discharged in stable condition today.
Discharge duration: 35 minutes
Discharge Plan
-
Patient Disposition: Custodial/SNF
Discharge Diagnosis/Procedures: Ischemic right lower extremity status post stent popliteal artery. Cellulitis/wound infection. History of coronary disease. History of peripheral vascular disease. History of chronic diastolic congestive heart
failure. Diabetes mellitus. Anemia.
Diet: Low Cholesterol and Diabetic, Carb Controlled
Activity: As tolerated
Others Tests: Ultrasound: 7/5 @ 8am
Activity Restrictions/Additional Instructions:
Wound Care Instructions
L medial ankle wounds-clean with saline, Triamcinolone ointment, adaptic, alginate, cover with silicone border foam or ABD pad and Jana, change daily and prn drainage.
R medial ankle ulcer-clean with saline, adaptic, alginate, cover with silicone border foam or gauze pad and Jana, change daily and prn drainage.
R dry toe ulcers-swab with no sting skin prep daily, if drainage occurs, swab with Betadine instead. Cover with dry gauze as needed for protection.
R heel ulcer-clean with saline, no sting barrier wipe to surrounding skin (allow to dry), apply foam dressing, change q 3 days and prn loosened dressing.
Bilateral knee high compression with Tomás wrap with light compression or Tubigrip as tolerated; remove at bedtime; reapply every am.
Elevate heels off bed with pillow or air chair cushion.
Follow up with vascular.
Follow up at wound care center call for an appointment.
Referrals:
Zayda Asencio MD [Family Provider] - in less than 1 week
Eli Medeiros PA-C [Specified Professional Personl] - 03/16/24 9:30 am (Vascular follow up)
Prescriptions:
New
doxycycline hyclate 100 mg Capsule
100 mg PO Q12H 4 Days Qty: 8 0RF
amoxicillin-pot clavulanate 875-125 mg Tablet
1 tab PO Q12 4 Days Qty: 8 0RF
Continued
furosemide 40 MG tablet
40 mg PO DAILY
cyanocobalamin (vitamin B-12) 1,000 MCG tablet
1,000 mcg PO DAILY
pantoprazole 40 MG tablet,delayed release (DR/EC)
40 mg PO DAILY
methimazole 5 MG tablet
5 mg PO DAILY
insulin lispro [Humalog U-100 Insulin] 100 UNIT/ML solution
0 - 14 sliding scale dose SC AC
Patient Comments:
02/03/2024: If < 80= 0; 80-100= 5; 100-199= 11; 200-299= 12; 300-399= 13; >400= 14 + call
propranolol 20 MG tablet
20 mg PO Q6HPRN PRN (Reason: 'heart' Palpitations )
insulin glargine [Lantus Solostar U-100 Insulin] 300 UNITS/3 ML insulin pen
20 units SC HS
Spiriva Respimat 1 PUFF mist
2 puff inhalation R QPM
Eliquis 5 MG tablet
5 mg PO BID
diltiazem HCl 120 MG capsule,extended release 24hr
120 mg PO HS
baclofen 10 mg Tablet
10 mg PO HS
ferrous sulfate [iron] 325 mg (65 mg iron) Tablet
325 mg PO DAILY
PreserVision AREDS-2 250-90-40-1 mg Capsule
1 tab PO BID
Nervive Nerve Relief
1 tab PO HS
levalbuterol tartrate 45 mcg/actuation Hfa Aerosol Inhaler
1 puff INHALATION R Q6HPRN PRN (Reason: shortness of breath )
cholecalciferol (vitamin D3) [Vitamin D3] 25 mcg (1,000 unit) Tablet
25 mcg PO DAILY
acetaminophen-codeine 300-15 mg tablet
1 tab PO Q12H Qty: 4 0RF
Patient Comments:
02/03/2024: last filled 01/25/24, 30 [facility]
lorazepam 0.5 mg Tablet
0.5 mg PO TIDPRN PRN (Reason: anxiety) Qty: 4 0RF
Patient Comments:
02/03/2024: last filled 07/24/22, [facility]
Discharge Orders:
Discharge Patient (As Directed); Ordered 02/09/24
Ordered By: Maurizio Morris
Discharge Date and Time
Discharge Date/Time: 02/09/24 15:00
Print Language: UPPER SORBIAN
--- NOTE | 2024-02-09 11:19 | PN.CDI ---
CDI
- -
CDI:
Physician Documentation Request
Admit Date: 02/03/24 20:58
Dear Doctor Alexandra,
Patient admitted for cellulitis.
02/03 [employer] Assessment: 'Pt meets criteria for severe protein calorie malnutrition with >5% wt loss x 1month and prolonged poor intake prior to hospital admit <75% for >1mo.'
Based on the information, which of the following most accurately represents the patient's nutritional status?
Severe protein calorie malnutrition
Other
Finley Criteria ([facility] Hospitalist 2017)
2 or more criteria must be present for either
non severe or severe malnutrition
Note that the criteria differs related to the
presence of an acute or chronic illness
Acute Illness Chronic Illness
Energy Intake Non Severe: <75% for >7 days Non Severe: <75% for >1 month
Severe: <50% for >5 days Severe: <75% for >1 month
Weight Loss Non Severe: 1-2% over 1 week Non Severe: 5% over 1 month
5% over 1 month 7.5% over 3 months
7.5% over 3 months 10% over 6 months
1 year N/A 20% over 1 year
Severe: >2% over 1 week Severe: >5% over 1 month
>5% over 1 month >7.5% over 3 months
>7.5% over 3 months >10% over 6 months
1 year N/A >20% over 1 year
Body Fat Non Severe: Mild Decrease Non Severe: Mild Loss
Severe: Moderate Decrease Severe: Severe Loss
Muscle Mass Non Severe: Mild Decrease Non Severe: Mild Loss
Severe: Moderate Decrease Severe: Severe Loss
Fluid Accumulation Non Severe: Mild Accumulation Non Severe: Mild Accumulation
Severe: Moderate to severe Severe: Moderate to severe
accumulation accumulation
Reduced Chief Vendor Quality Strength Non Severe: N/A Non Severe: N/A
Severe: Measurably reduced Severe: Measurably reduced
Additional criteria that can be used to Determine if Mild or Moderate Malnutrition (Merck Manual 2018)
Mild Moderate Severe
Albumin gm/dl <3.0 gm/dl <2.5 gm/dl <2.0 gm/dl
Pre Albumin mg/dl <15 gm/dl <10 mg/dl <5.0 mg/dl
BMI <18.5 <17 <16
Use of terms such as suspected, likely, concern for, or probable (associated with a specific diagnosis that is being evaluated, monitored, or treated as if it exists) are acceptable and can be coded in the inpatient setting, when documented at the
time of discharge.
Thank you,
Nika Vázquez RN, BSN
CDI Specialist
Available via [place] text
Please use your independent medical judgment in providing your response.
[2024-02-09 11:44] LABS: Glucose - Point of Care 262 mg/dl (70-99)
--- NOTE | 2024-02-09 11:58 | W.PN.ID1 ---
Date of Service
Date of Service: February 09, 2024
Today's Communication
- day 7 of 10 of antibiotics
- c/w to doxycycline and augmentin; she will likely tolerated doxycycline when taken with food; if nausea can use ondansetron. She is agreeable to this plan
- stable for dc from ID perspective, follow up with vascular surgery
Assessment / Plan
Cellulitis
Wound Infection
Intolerance to doxycycline
- day 7 of 10 of antibiotics
- c/w to doxycycline and augmentin; she will likely tolerated doxycycline when taken with food; if nausea can use ondansetron. She is agreeable to this plan
- stable for dc from ID perspective, follow up with vascular surgery
Chief Complaint
-: Cellulitis
Subjective / Review of Systems
afebrile
bp stable
no labs today
tolerating doxycycline when taken with food
agree with dc
Vital Signs / Physical Exam
Vital Signs
Vital Signs
Temp Pulse Resp BP Pulse Ox
99.1 F 84 16 120/56 93
02/09/24 07:00 02/09/24 07:00 02/09/24 07:00 02/09/24 07:00 02/09/24 07:00
Physical Exam
Constitutional: No Acute Distress
Cardiovascular: Regular Rate and S1/S2; Negative Murmur or Rub
Pulmonary: Clear and Symmetric; Negative Wheezes or Rales
Gastrointestinal: Soft, Non Tender, Non Distended and Normal Bowel Sounds
Skin: Warm and Dry; Negative Rash (erythema has resolved) or Jaundice
Objective Data
Lab Data
Lab Results
02/08/24 09:40
02/08/24 17:27
APTT 44.9 Sec (23.4-35.0) H 02/03/24 13:45
Estimated Creat Clear 37 ml/min 02/08/24 09:40
Lactic Acid 1.4 mmol/L (0.7-2.0) 02/03/24 13:45
Total Bilirubin 0.7 mg/dl (0.2-1.3) 02/04/24 07:55
AST 19 U/L (14-36) 02/04/24 07:55
ALT 14 U/L (0-35) 02/04/24 07:55
Alkaline Phosphatase 76 U/L (38-126) 02/04/24 07:55
Most recent labs reviewed.
Micro Results:
02/03/24 13:45 Blood Culture - Final
Blood/Venous No Growth - Final Report
02/03/24 22:33 Wound Culture - Final
Toe Staph aureus MRSA
Enterococcus species
Gram negative bacilli
Gram Stain - Final
02/04/24 08:25 MRSA Screen - Final
Nose No Methicillin Resistant Staphylococcus aureus isolated.
[2024-02-09] MEDS: TYLENOL #3 1 TABLET PO (12:44)
[2024-02-09] MEDS: NOVOLOG FLEXPEN-LOW RESISTANCE 3 UNITS SC (12:45)
[2024-02-09] MEDS: DILAUDID 0.5 MG IV (13:21)
== END 2024-02-09 15:00 | DRG 252 ==
LOC: 4 WEST ACU 20:58
PROVIDERS: Emergency Medicine; Internal Medicine; ADMITTING PHYSICIAN Hospitalist; ATTENDING PHYSICIAN Hospitalist; CONSULT PHYSICIAN Student in an Organized Health Care Education/Training Program; EMERGENCY PHYSICIAN Emergency Medicine; FAMILY PHYSICIAN Internal Medicine; OTHER PHYSICIAN Surgery Vascular Surgery
PROC: B4101ZZ Fluoroscopy of Abdominal Aorta using Low Osmolar Contrast (ICD-10-PCS; 2024-02-05)
PROC: B41F1ZZ Fluoroscopy of Right Lower Extremity Arteries using Low Osmolar Contrast (ICD-10-PCS; 2024-02-05)
PROC: B41C1ZZ Fluoroscopy of Pelvic Arteries using Low Osmolar Contrast (ICD-10-PCS; 2024-02-05)
PROC: 047N3D1 Dilation of Left Popliteal Artery with Intraluminal Device, using Drug-Coated Balloon, Percutaneous Approach (ICD-10-PCS; 2024-02-05)
DX: E11.51 Type 2 diabetes mellitus with diabetic peripheral angiopathy without gangrene (principal); E43 Unspecified severe protein-calorie malnutrition; I13.0 Hypertensive heart and chronic kidney disease with heart failure and stage 1 through stage 4 chronic kidney disease, or unspecified chronic kidney disease; I50.32 Chronic diastolic (congestive) heart failure; L03.115 Cellulitis of right lower limb; I42.2 Other hypertrophic cardiomyopathy; I70.234 Atherosclerosis of native arteries of right leg with ulceration of heel and midfoot; Z68.1 Body mass index [BMI] 19.9 or less, adult; E03.9 Hypothyroidism, unspecified; E11.22 Type 2 diabetes mellitus with diabetic chronic kidney disease; N18.9 Chronic kidney disease, unspecified; E78.00 Pure hypercholesterolemia, unspecified; I25.10 Atherosclerotic heart disease of native coronary artery without angina pectoris; I48.0 Paroxysmal atrial fibrillation; I05.0 Rheumatic mitral stenosis; I44.7 Left bundle-branch block, unspecified; J44.9 Chronic obstructive pulmonary disease, unspecified; D64.9 Anemia, unspecified; F32.A Depression, unspecified; F41.9 Anxiety disorder, unspecified; E05.90 Thyrotoxicosis, unspecified without thyrotoxic crisis or storm; K21.9 Gastro-esophageal reflux disease without esophagitis; Z66 Do not resuscitate; I25.2 Old myocardial infarction; Z87.891 Personal history of nicotine dependence; Z79.01 Long term (current) use of anticoagulants; Z79.4 Long term (current) use of insulin; Z86.73 Personal history of transient ischemic attack (TIA), and cerebral infarction without residual deficits; Z95.820 Peripheral vascular angioplasty status with implants and grafts; Z88.6 Allergy status to analgesic agent; Z88.1 Allergy status to other antibiotic agents; Z88.8 Allergy status to other drugs, medicaments and biological substances; Z95.5 Presence of coronary angioplasty implant and graft; Z87.19 Personal history of other diseases of the digestive system
CPT/HCPCS: 37226; 75625; 75710; 80048; 80053; 80202; 82947; 82962; 83036; 83605; 85025; 85027; 85730; 87040; 87070; 87077; 87147; 87186; 87205; 93005; 93922; 93925; 93971; 94640; 96365; 96375; 97116; 97162; 97167; 97530; 99284; C1725; C1769; C1887; C1894; C2623; Q9967

== ENCOUNTER → 2024-03-11 07:59 | Outpatient (REF) | payer MEDICARE, SELFPAY | LOC: RAD 07:59 | PROVIDERS: ATTENDING PHYSICIAN Surgery Vascular Surgery | DX: L89.509 Pressure ulcer of unspecified ankle, unspecified stage (principal) | CPT/HCPCS: 93922; 93925 ==

== ENCOUNTER 2024-03-11 09:21 | Emergency (ER) | payer MEDICARE, SELFPAY ==
[2024-03-11 09:25] VITALS: BP 140/71
--- NOTE | 2024-03-11 09:30 | ED.GENMED ---
History of Present Illness
<Marie Cramer PA-C - Last Filed: 03/11/24 09:53>
General
Chief Complaint: Blood Sugar Problem
Source: patient
Exam Limitations: none
Time Seen by Provider: 03/11/24 09:30
Nursing documentation reviewed up to this point in time: agreed with
History of Present Illness
History of Present Illness:
This is a 88 y/o female with a past medical history of insulin-dependent diabetes, hypothyroidism, chronic UTIs presenting emergency department today with concerns of hyperglycemia. Patient was here at the hospital for a scheduled ultrasound today
and took her blood sugar prior to coming in and saw that it was over 300. Patient figured that since she went for the test, her blood sugar must have increased a lot. She told the staff at ultrasound this and they brought her to the emergency
department in a wheelchair. Patient states that she feels very well. Patient states that she forgot her insulin pen at home and her glucometer and the car. Patient went to have her blood sugar checked to ensure that it is not too high and that
she is safe to take her insulin at home. Patient denies any chest pain, fevers or chills, shortness of breath, abdominal pain.
Past History
<MILIDN Genao Last Filed: 03/11/24 09:53>
Past History
ED Past Medical History: Arrthythmia (afib), CAD, CHF, GERD, HTN, Hypercholesterolemia, IDDM, Other (peripheral vascular disease, hypertrophic cardiomyopathy,) and Other (Paroxysmal atrial fib, coronary disease status post MT status post stents, and
diabetes, hypertension, hypercholesterolemia)
ED Past Surgical History: Cardiac (Cardiac ablation) and Gynecological (LEANN/BSO)
Social History
Tobacco: Former smoker
Alcohol: None
Personal:
Living: alone
Employment: Retired
Family History
Family History: Diabetes and CAD
Review of Systems
<Marie Cramer PA-C - Last Filed: 03/11/24 09:53>
Review of Systems
All Other Systems: ROS reviewed and negative except as documented in HPI and ROS
Phy Exam
<Marie Cramer PA-C - Last Filed: 03/11/24 09:53>
Physical Exam
Physical Exam:
General: Patient is well appearing and in no acute distress; non-toxic
Skin: Warm and dry, no rashes or lesions
Head: Normocephalic, atraumatic
Eyes: Sclera non-icteric. EOMs intact. PERRLA.
Cardiac: Regular rate and rhythm, no murmurs
Pulm: Normal respiratory effort
Neuro: CN II-XII intact, no focal neurologic deficits.
Psychiatric: Appropriate mood and affect.
Course
<Marie Cramer PA-C - Last Filed: 03/11/24 09:53>
Orders/Labs/Results
Orders:
Abnormal Lab Results
03/11/24
09:29
POC Glucose 259 H mg/dl
(70-99)
Vital Signs
Initial and Last Documented VS:
Initial Vital Signs
Temp Pulse Resp BP Pulse Ox
98.4 F 94 16 140/71 98
03/11/24 09:25 03/11/24 09:25 03/11/24 09:25 03/11/24 09:25 03/11/24 09:25
Last Documented Vital Signs
Temp Pulse Resp BP Pulse Ox
98.4 F 94 16 140/71 98
03/11/24 09:25 03/11/24 09:25 03/11/24 09:25 03/11/24 09:25 03/11/24 09:25
<Xin Ambrocio MD - Last Filed: 03/11/24 09:45>
Orders/Labs/Results
Orders:
Abnormal Lab Results
03/11/24
09:29
POC Glucose 259 H mg/dl
(70-99)
Vital Signs
Initial and Last Documented VS:
Initial Vital Signs
Temp Pulse Resp BP Pulse Ox
98.4 F 94 16 140/71 98
03/11/24 09:25 03/11/24 09:25 03/11/24 09:25 03/11/24 09:25 03/11/24 09:25
Last Documented Vital Signs
Temp Pulse Resp BP Pulse Ox
98.4 F 94 16 140/71 98
03/11/24 09:25 03/11/24 09:25 03/11/24 09:25 03/11/24 09:25 03/11/24 09:25
<Marie Cramer PA-C - Last Filed: 03/11/24 09:53>
MDM/Problems Addressed
Differential Diagnosis Includes:
hyperglycemia, DKA, HHS
MDM/Problems Addressed:
Hyperglycemia:
This is a 88 y/o female with a past medical history of insulin-dependent diabetes, hypothyroidism, chronic UTIs presenting emergency department today with concerns of hyperglycemia. Patient was here at the hospital for a scheduled ultrasound today
and took her blood sugar prior to coming in and saw that it was over 300. At the appointment today, patient was concerned that her blood sugar may be high so the staff sent her to the emergency department. Patient left her insulin pen at home. Her
blood sugar here today is 259 in the ER. Considering patient is completely asymptomatic, well appearing, she is stable for discharge to go home and dose her insulin. No concern for DKA at this time.
Chronic conditions affecting care:
diabetes, afib, COPD, CAD, HLP
Acute Exacerbation and/or Progression of Chronic Illness:
diabetes
<Marie Cramer PA-C - Last Filed: 03/11/24 09:53>
*Pulse Oximetry
Patient hypoxic: no
*Critical Care Note
Total Time (30-74mins, 75-104mins- exclusive of procedures): Not Applicable
Data Reviewed
Review of Other/Old Records Reveals: Records (reviewed discharge summary from 02/09/24)
Source: patient and records
<Marie Cramer PA-C - Last Filed: 03/11/24 09:53>
Patient Management
Escalation/DeEscalation of care consider admission/obs:
Patient stable for discharge, admit not idicated
ED Attending Note
<Marie Cramer PA-C - Last Filed: 03/11/24 09:53>
-
Portions of this chart may have been created with voice recognition software.� Occasional wrong word or��sound alike� substitutions may have occurred due to the inherent limitations of voice recognition software.
<Xin Ambrocio MD - Last Filed: 03/11/24 09:45>
ED Attending Note
Patient seen and examined by attending physician: Yes
I performed the substantive portion of visit, reviewed & personally made and approve the management plan that is documented in note by myself or TOMAS.: Yes
ED Attending Note:
Patient looks extremely well and comfortable. She appears well-perfused. She has a nonfocal neurological exam. Patient denies symptoms such as lightheadedness, nausea, chest pain or shortness of breath. It is very doubtful she has a diabetic
ketoacidosis based on how well and comfortable she looks. Patient is very happy to go home and take insulin when she gets home.
Discharge Plan
Departure
Patient Disposition: Home (Routine Discharge)
Date of Disposition: 03/11/24
Time of Disposition: 09:41
Patient with high blood pressure during this ER visit?: Yes
Condition: Good
Discharge Problem:
Hyperglycemia
Instructions: High Blood Sugar, Adult ED, BLOOD PRESSURE
Prescriptions:
No Action
furosemide 40 MG tablet
40 mg PO DAILY
cyanocobalamin (vitamin B-12) 1,000 MCG tablet
1,000 mcg PO DAILY
pantoprazole 40 MG tablet,delayed release (DR/EC)
40 mg PO DAILY
methimazole 5 MG tablet
5 mg PO DAILY
insulin lispro [Humalog U-100 Insulin] 100 UNIT/ML solution
0 - 14 sliding scale dose SC AC
Patient Comments:
02/03/2024: If < 80= 0; 80-100= 5; 100-199= 11; 200-299= 12; 300-399= 13; >400= 14 + call md
propranolol 20 MG tablet
20 mg PO Q6HPRN PRN (Reason: 'heart' Palpitations )
insulin glargine [Lantus Solostar U-100 Insulin] 300 UNITS/3 ML insulin pen
20 units SC HS
Spiriva Respimat 1 PUFF mist
2 puff inhalation R QPM
Eliquis 5 MG tablet
5 mg PO BID
diltiazem HCl 120 MG capsule,extended release 24hr
120 mg PO HS
baclofen 10 mg Tablet
10 mg PO HS
ferrous sulfate [iron] 325 mg (65 mg iron) Tablet
325 mg PO DAILY
PreserVision AREDS-2 250-90-40-1 mg Capsule
1 tab PO BID
Nervive Nerve Relief
1 tab PO HS
levalbuterol tartrate 45 mcg/actuation Hfa Aerosol Inhaler
1 puff INHALATION R Q6HPRN PRN (Reason: shortness of breath )
cholecalciferol (vitamin D3) [Vitamin D3] 25 mcg (1,000 unit) Tablet
25 mcg PO DAILY
doxycycline hyclate 100 mg Capsule
100 mg PO Q12H 4 Days Qty: 8 0RF
amoxicillin-pot clavulanate 875-125 mg Tablet
1 tab PO Q12 4 Days Qty: 8 0RF
acetaminophen-codeine 300-15 mg tablet
1 tab PO Q12H Qty: 4 0RF
Patient Comments:
02/03/2024: last filled 01/25/24, 30 tabs for 15 days from [facility]
lorazepam 0.5 mg Tablet
0.5 mg PO TIDPRN PRN (Reason: anxiety) Qty: 4 0RF
Patient Comments:
02/03/2024: last filled 07/24/22, [facility]
Activity Restrictions/Additional Instructions:
Please take your insulin when you return home.
Please return to the emergency department should you experience extreme thirst or frequent urination, warm skin, fevers, sleep looseness or confusion, visual loss or hallucinations, burning with urination, chest pain, shortness of breath, or any
other signs or symptoms concerning to you.
Interventions
Interventions:
*Risk Screen - Suicide Last Done: 03/11/24 09:25
*General Assessment Last Done: 03/11/24 09:25
*Neglect/Abuse Screening Last Done: 03/11/24 09:25
*Nursing Disposition Last Done: 03/11/24 09:48
ED- Neurological Assessment Last Done: 03/11/24 09:47
Discharge Date and Time
Print Language: ANGOLAN
[2024-03-11 09:31] LABS: Glucose - Point of Care 259 mg/dl (70-99)
== END 2024-03-11 09:59 | disposition home or self-care (01) ==
LOC: EMR 09:21
PROVIDERS: EMERGENCY PHYSICIAN Emergency Medicine
DX: E11.65 Type 2 diabetes mellitus with hyperglycemia (principal); E03.9 Hypothyroidism, unspecified; I11.0 Hypertensive heart disease with heart failure; I50.9 Heart failure, unspecified; Z87.891 Personal history of nicotine dependence; Z87.440 Personal history of urinary (tract) infections; I48.0 Paroxysmal atrial fibrillation; J44.9 Chronic obstructive pulmonary disease, unspecified; I25.10 Atherosclerotic heart disease of native coronary artery without angina pectoris
CPT/HCPCS: 99282; 82962

== ENCOUNTER 2024-04-16 19:46 | Emergency (ER) | payer MEDICARE, SELFPAY ==
[2024-04-16 19:57] VITALS: BP 124/54; BMI 19.6
[2024-04-16 20:00] VITALS: BP 102/52
--- NOTE | 2024-04-16 20:20 | ED.GENMED ---
History of Present Illness
General
Chief Complaint: Musculo-Skeletal Complaint
Source: patient
Exam Limitations: none
Time Seen by Provider: 04/16/24 20:01
Nursing documentation reviewed up to this point in time: agreed with
History of Present Illness
History of Present Illness:
88-year-old female presents emergency room complaining of neck pain ongoing for the past 2 days, which she has had it previously. She describes neck and shoulder spasms. She denies any midline neck pain. She denies any injury.
Past History
Past History
ED Past Medical History: Arrthythmia (afib), CAD, CHF, GERD, HTN, Hypercholesterolemia, IDDM, Other (peripheral vascular disease, hypertrophic cardiomyopathy,) and Other (Paroxysmal atrial fib, coronary disease status post MA status post stents, and
diabetes, hypertension, hypercholesterolemia)
ED Past Surgical History: Cardiac (Cardiac ablation) and Gynecological (LEANN/BSO)
Social History
Tobacco: Former smoker
Alcohol: None
Personal:
Living: alone
Employment: Retired
Family History
Family History: Diabetes and CAD
Review of Systems
Review of Systems
Allergies reviewed?: Yes
All Other Systems: Not applicable
Constitutional: Reports no symptoms
EENT: Reports no symptoms
Respiratory: Reports no symptoms
Cardiac: Reports no symptoms
ABD/GI: Reports no symptoms
: Reports no symptoms
Musculoskeletal: Reports muscle pain and neck pain
Skin: Reports no symptoms
Neurological: Reports no symptoms
Endocrine: Reports no symptoms
Hematologic/Lymphatic: Reports no symptoms
Psychiatric: Reports no symptoms
Phy Exam
Physical Exam
Physical Exam:
Physical Exam
General: Afebrile
Neck: supple. no meningeal signs. normal posterior pharynx, kyphosis, tender to palpation at
Spinal muscles and bilateral trapezius, no midline tenderness
Heart: s1/s2 regular rate and rhythm, no murmur. equal radial
pulses.
HEENT: Pupils equal round reactive to light, EOMI
Lungs: no acute respiratory distress. clear bilaterally
Abdomen: normal bowel sounds. not tender. no CVAT
Neuro: alert and oriented. no focal neurological deficits cranial nerves II through XII intact
Skin: no rash
Psychiatric: well kept. interactive and cooperative
Extremities: no edema. no calf tenderness. negative homans. good distal pulses
Course
Orders/Labs/Results
Orders:
Orders
04/16/24 20:15
IV Insert/Care/Rem.- Treatment PRN
04/16/24 20:20
Lidocaine [Lidocaine 4% Patch] 1 patch TOPICAL STAT STA
Apply Lidocaine patch(s) to:: neck
04/16/24 20:28
Complete Blood Count/With Diff Urgent
Comprehensive Metabolic Panel Urgent
Magnesium Urgent
Manual Differential Urgent
04/16/24 22:11
Acetaminophen [Tylenol] 650 mg PO NOW STA
Abnormal Lab Results
04/16/24
20:28
Hgb 11.3 L g/dL
(12.0-16.0)
Hct 34.1 L %
(37.0-47.0)
MCV 78.8 L fL
(81.0-99.0)
MCH 26.1 L pg
(27.0-31.0)
MPV 12.1 H fL
(7.4-10.4)
Lymphocytes (Manual) 9 L %
(20-51)
Monocytes (Manual) 21 H %
(2-9)
BUN 18 H mg/dl
(7-17)
Creatinine 1.1 H mg/dL
(0.6-1.0)
Glucose 245 H mg/dl
(70-99)
Total Protein 5.6 L g/dl
(6.3-8.2)
04/16/24 20:28
04/16/24 20:28
Vital Signs
Initial and Last Documented VS:
Initial Vital Signs
Temp Pulse Resp BP
98.9 F 90 20 124/54
04/16/24 19:57 04/16/24 19:57 04/16/24 19:57 04/16/24 19:57
Last Documented Vital Signs
Temp Pulse Resp BP
98.9 F 89 15 138/53
04/16/24 19:57 04/16/24 22:00 04/16/24 22:00 04/16/24 22:00
MDM/Problems Addressed
Differential Diagnosis Includes:
Neck strain, cervical spine injury
MDM/Problems Addressed:
88-year-old female with neck and shoulder strain. Do not suspect cervical spine injury or ACS. No signs of electrolyte abnormality. Stable for discharge.
*Critical Care Note
Total Time (30-74mins, 75-104mins- exclusive of procedures): Not Applicable
Patient Management
Social determinants of health affecting care: Living situation
Escalation/DeEscalation of care consider admission/obs:
Admit not indicated
ED Attending Note
-
Portions of this chart may have been created with voice recognition software.� Occasional wrong word or��sound alike� substitutions may have occurred due to the inherent limitations of voice recognition software.
Discharge Plan
Departure
Patient Disposition: Home (Routine Discharge)
Date of Disposition: 04/16/24
Time of Disposition: 22:38
Patient with high blood pressure during this ER visit?: Yes
Condition: Good
Discharge Problem:
Neck muscle strain
Instructions: Cervical Muscle Strain, BLOOD PRESSURE
Prescriptions:
No Action
cyanocobalamin (vitamin B-12) 1,000 MCG tablet
1,000 mcg PO DAILY
pantoprazole 40 MG tablet,delayed release (DR/EC)
40 mg PO DAILY
methimazole 5 MG tablet
5 mg PO DAILY
insulin lispro [Humalog U-100 Insulin] 100 UNIT/ML solution
0 - 9 sliding scale dose SC AC
Patient Comments:
04/16/2024: 0-100=0 units; 101-200=2 units; 201-250=5 units; 251-300=7 units; 301-350=8 units; 351-400=9 units
propranolol 20 MG tablet
20 mg PO Q6HPRN PRN (Reason: 'heart' Palpitations )
insulin glargine [Lantus Solostar U-100 Insulin] 300 UNITS/3 ML insulin pen
20 units SC HS
Spiriva Respimat 1 PUFF mist
2 puff inhalation R DAILY
Eliquis 5 MG tablet
5 mg PO BID
diltiazem HCl 120 MG capsule,extended release 24hr
120 mg PO HS
baclofen 10 mg Tablet
10 mg PO HS
ferrous sulfate [iron] 325 mg (65 mg iron) Tablet
325 mg PO DAILY
PreserVision AREDS-2 250-90-40-1 mg Capsule
1 tab PO BID
levalbuterol tartrate 45 mcg/actuation Hfa Aerosol Inhaler
1 puff INHALATION R Q6HPRN PRN (Reason: shortness of breath )
cholecalciferol (vitamin D3) [Vitamin D3] 25 mcg (1,000 unit) Tablet
25 mcg PO DAILY
lorazepam 0.5 mg Tablet
0.5 mg PO TIDPRN PRN (Reason: anxiety) Qty: 4 0RF
furosemide [Lasix] 20 mg Tablet
20 mg PO DAILY
aspirin 81 mg Capsule
81 mg PO DAILY
Nervive 50mg Tablet
50 mg PO HS
Referrals:
Cielo Contreras DO [Family Provider] -
Radha Herzog MD [Non-Admitting Privileges] - Call in 1-3 days for appt
Interventions
Interventions:
*Risk Screen - Suicide Last Done: 04/16/24 19:50
*General Assessment Last Done: 04/16/24 19:50
*Neglect/Abuse Screening Last Done: 04/16/24 19:50
ED- Fall Risk Assessment Last Done: 04/16/24 19:59
*ED COVID-19 Vaccine History Last Done: 04/16/24 19:57
*Nursing Disposition Last Done: 04/16/24 22:53
ED-Musculoskeletal Assessment Last Done: 04/16/24 19:59
Discharge Date and Time
Discharge Date/Time: 04/16/24 22:53
Print Language: SOMALI
[2024-04-16] MEDS: LIDOCAINE 4% PATCH 1 PATCH TOPICAL (20:34)
[2024-04-16 20:36] LABS: Hematocrit 34.1 % (37.0-47.0); Hemoglobin 11.3 g/dL (12.0-16.0); Mean Corp Hgb Conc. 33.1 g/dL (33.0-37.0); Mean Corpuscular Hgb 26.1 pg (27.0-31.0); Mean Corpuscular Volume 78.8 fL (81.0-99.0); Mean Platelet Volume 12.1 fL (7.4-10.4); Platelet Count 131 10^3/uL (130-400); Red Blood Cell Count 4.33 10^6/uL (4.20-5.40); Red Cell Dist. Width 14.5 % (11.5-14.5); White Blood Cell Count 8.8 10^3/uL (4.8-10.8)
[2024-04-16 20:55] LABS: ALT (SGPT) 11 U/L (0-35); AST (SGOT) 14 U/L (14-36); Albumin 3.5 g/dl (3.5-5.0); Alkaline Phosphatase 79 U/L (38-126); Blood Urea Nitrogen 18 mg/dl (7-17); Calcium 8.9 mg/dl (8.4-10.2); Carbon Dioxide 25 mmol/L (22-30); Chloride 102 mmol/L (98-107); Estimated Creatinine Clearance 32 ml/min; Glucose 245 mg/dl (70-99); Magnesium 1.9 mg/dl (1.6-2.3); Sodium 135 mmol/L (135-145); Total Bilirubin 1.1 mg/dl (0.2-1.3); Total Protein 5.6 g/dl (6.3-8.2); eGFR 48.33
[2024-04-16 21:00] VITALS: BP 136/56
[2024-04-16 21:00] LABS: Absolute Neutrophils -Man Diff 6.1 10^3/uL (1.4-6.5); Band Neutrophils 0 % (0-3); Lymphocytes 9 % (20-51); Microcytosis 1+; Monocytes 21 % (2-9); Normal RBC Morphology No; Platelets Checked Yes; Segmented Neutrophils 70 % (42-75)
[2024-04-16 21:01] LABS: Hypochromasia 2+; Total Cells Counted 100
[2024-04-16 22:00] VITALS: BP 138/53
[2024-04-16] MEDS: TYLENOL 650 MG PO (22:19)
--- NOTE | 2024-04-16 22:53 | EDRN ---
Pt removed herself from monitoring equipment and called this RN into room. Pt said she had a ride coming in 7 minutes. This RN removed pt's IV and pt used walker to go to the bathroom. Gait steady. Assisted pt with putting on her house robe. Pt
got into wheelchair on her own. Pt was instructed to remove lidocaine patch tomorrow morning per Dr Rose. Suggested pt use heat few times a day and instructed to take tylenol for pain which pt says she has at home. Pt says she will not sleep
on the couch anymore and will be sleeping in her bed tonight. Advised to make sure her neck has good support when she sleeps.
== END 2024-04-16 22:53 | disposition home or self-care (01) ==
LOC: EMR 19:46
PROVIDERS: EMERGENCY PHYSICIAN Emergency Medicine; FAMILY PHYSICIAN Internal Medicine
DX: S16.1XXA Strain of muscle, fascia and tendon at neck level, initial encounter (principal); M62.838 Other muscle spasm; X58.XXXA Exposure to other specified factors, initial encounter; I25.10 Atherosclerotic heart disease of native coronary artery without angina pectoris; E11.51 Type 2 diabetes mellitus with diabetic peripheral angiopathy without gangrene; E78.00 Pure hypercholesterolemia, unspecified; I11.0 Hypertensive heart disease with heart failure; I50.9 Heart failure, unspecified; I48.0 Paroxysmal atrial fibrillation; K21.9 Gastro-esophageal reflux disease without esophagitis; I42.2 Other hypertrophic cardiomyopathy; J44.9 Chronic obstructive pulmonary disease, unspecified; M48.00 Spinal stenosis, site unspecified; E05.90 Thyrotoxicosis, unspecified without thyrotoxic crisis or storm; F41.9 Anxiety disorder, unspecified; M81.0 Age-related osteoporosis without current pathological fracture; I25.2 Old myocardial infarction; Z95.5 Presence of coronary angioplasty implant and graft; Z85.41 Personal history of malignant neoplasm of cervix uteri; Z87.891 Personal history of nicotine dependence; Z86.73 Personal history of transient ischemic attack (TIA), and cerebral infarction without residual deficits; Z79.4 Long term (current) use of insulin; Z79.01 Long term (current) use of anticoagulants; Z88.6 Allergy status to analgesic agent; Z88.1 Allergy status to other antibiotic agents; Z88.8 Allergy status to other drugs, medicaments and biological substances
CPT/HCPCS: 99283; 80053; 83735; 85025

== ENCOUNTER 2024-04-26 08:14 | Day surgery (SDC) | payer MEDICARE, SELFPAY ==
[2024-04-26] VITALS (16 sets, daily range): BP systolic 97–142; BP diastolic 46–92; BMI 20.4
[2024-04-26 08:52] LABS: Hematocrit 35.7 % (37.0-47.0); Mean Corp Hgb Conc. 33.6 g/dL (33.0-37.0); Mean Corpuscular Hgb 25.9 pg (27.0-31.0); Mean Corpuscular Volume 76.9 fL (81.0-99.0); Mean Platelet Volume 11.1 fL (7.4-10.4); Platelet Count 191 10^3/uL (130-400); Red Blood Cell Count 4.64 10^6/uL (4.20-5.40); Red Cell Dist. Width 15.7 % (11.5-14.5); White Blood Cell Count 7.9 10^3/uL (4.8-10.8)
[2024-04-26 08:54] LABS: INR 1.24; PT 15.4 Sec (11.4-14.6)
[2024-04-26 08:55] LABS: APTT 35.8 Sec (23.4-35.0)
[2024-04-26 08:59] LABS: Blood Urea Nitrogen 26 mg/dl (7-17); Calcium 9.5 mg/dl (8.4-10.2); Carbon Dioxide 27 mmol/L (22-30); Chloride 105 mmol/L (98-107); Estimated Creatinine Clearance 32 ml/min; Glucose 106 mg/dl (70-99); Potassium 4.2 mmol/L (3.5-5.1); Sodium 141 mmol/L (135-145); eGFR 48.33
[2024-04-26 09:23] LABS: Glucose - Point of Care 99 mg/dl (70-99)
[2024-04-26] MEDS: BICITRA 30 ML PO (10:31)
[2024-04-26 12:58] LABS: Glucose - Point of Care 106 mg/dl (70-99)
--- NOTE | 2024-04-26 13:07 | W.SUR.POST ---
Surgical Immediate Post Op
Note
Pre Op Diagnosis: Peripheral Vascular Disease
Post Op Diagnosis: Peripheral Vascular Disease
Procedure Performed: LLE Angiogram/Angioplasty + Stent Placement
Primary Surgeon: Low Lee MD
Secondary Surgeons: Aleksey Stewart MD, PhD
Anesthesia: Per Anesthesia
Estimated Blood Loss: 5 cc
Fluids: Per Anesthesia
Drains/Shunts: None
Specimens/Cultures: None
Doppler/Duplex/Angio (Y/N): Angio of LLE
Complications: None
Operative Findings: RIGHT femoral stick and LLE angiogram, multi-level LLE arterial disease, stenosis of previous TP trunk angioplasty, repeat angioplasty from mid-SFA distally through TP trunk,distal SFA stent x2, completion angiogram with patent
distal flow confirmed
[2024-04-26] MEDS: PLAVIX 150 MG PO (13:47)
[2024-04-26 14:18] LABS: Glucose - Point of Care 116 mg/dl (70-99)
[2024-04-26] MEDS: ROXICODONE 5 MG PO (14:24)
[2024-04-26] MEDS: NSS 1000 IV (14:47)
[2024-04-26 17:49] LABS: Glucose - Point of Care 244 mg/dl (70-99)
[2024-04-26] MEDS: NOVOLOG FLEXPEN-LOW RESISTANCE 2 UNITS SC (18:25)
--- NOTE | 2024-04-26 18:30 | PTCARENOTE ---
Received pt from hemodialysis lab technician, VSS, B/L pulses present with doppler, pt resting comfortably in bed at this time.
--- NOTE | 2024-04-26 19:31 | OR.RPT ---
Operative Report
Operative Report
Date of Operation: 04/26/2024
Pre Op Diagnosis: Severe and worsening left lower extremity calf claudication
Post Op Diagnosis: Severe and worsening left lower extremity calf claudication
Procedure:
1.) Intravascular lithotripsy to left tibioperoneal trunk
2.) Intravascular lithotripsy to left popliteal artery and superficial femoral artery (5 mm x 80 mm E8 shockwave balloon)
3.) Balloon angioplasty of tibioperoneal trunk (4 mm x 40 mm balloon)
4.) Balloon angioplasty and stenting of popliteal artery and distal superficial femoral artery (overlapping Zilver PTX stents-6 mm x 140 mm distal, 6 mm x 100 mm proximal)
5.) Ultrasound-guided percutaneous access to the right common femoral artery
6.) Diagnostic aortobiiliac arteriogram
7.) Diagnostic left lower extremity arteriogram
Surgeon: Low Lee III, MD
Breakfast Cook: Aleksey Stewart MD PhD PGY-6
Anesthesia: Sedation with local
Fluoroscopy:
34.9 min
114 mGy
25.87 Gy.cm2
Complications: None
Estimated Blood Loss: Minimal
History and Indications for Procedure: 88-year-old female with known peripheral arterial disease and prior lower extremity endovascular interventions. She developed worsening claudication in her left calf and duplex imaging showed evidence for
high-grade stenoses in her left SFA/pop.
Procedure in Detail: Cookie Castellano was correctly identified and placed supine on the operating table. After adequate induction of anesthesia the bilateral groins were prepped and draped in the usual sterile fashion. A timeout was performed with the
nursing and anesthesia staff confirming the patient's identity as well as the nature and laterality of the procedure.
The right common femoral artery was identified under ultrasound guidance. The artery was patent. The superior and inferior aspects of the femoral head were identified with radiographic guidance and marked at the skin level. The proposed puncture
site was infiltrated with local anesthesia. We saved a copy of the ultrasound image to the medical record. Under ultrasound guidance we accessed the right common femoral artery with a micropuncture needle and upsized to a 5 Fr sheath over a Bettery
wire. The wire and a ShepherTheCommentor hook flush catheter were advanced into the distal abdominal aorta and a diagnostic aorto-biiliac arteriogram was performed:
AORTO-ILIAC ARTERIOGRAM:
Aorta: Patent with no significant stenosis identified
Right common iliac artery: Patent stent. No significant stenosis identified
Right external iliac artery: Patent with no significant stenosis identified
Left common iliac artery: Patent stent. No significant stenosis identified
Left external iliac artery: Patent with no significant stenosis identified
Under roadmap guidance using a Glidewire and the Shepherds hook catheter we selected the left common iliac artery and then the external iliac artery. A catheter was tracked up and over the aortic bifurcation and placed in the distal external iliac
artery. A diagnostic left lower extremity arteriogram was then performed which demonstrated the following:
LEFT LOWER EXTREMITY:
Common femoral artery: Patent with no significant stenosis identified
Profunda femoral artery: Patent with no significant stenosis identified
Superficial femoral artery: Patent proximally. Scattered heavy calcification noted throughout. High-grade stenosis noted in the distal superficial femoral artery
Popliteal artery: Diffuse moderate to high-grade scattered stenoses identified throughout
Anterior tibial artery: Occluded
Tibioperoneal trunk: Bulky calcified plaque with high-grade stenosis identified
Peroneal artery: Patent as the lone tibial runoff distally. Occluded.
Posterior tibial artery: Occluded
ENDOVASCULAR INTERVENTION: Systemic heparin was administered. Exchanged out for a 6 Fr 45 cm sheath over a Storq wire. Selected the superficial femoral artery under roadmap guidance with Quickcross catheter and glidewire. The SFA and popliteal
artery stenoses were crossed with a Quickcross and Glidewire. Under roadmap guidance the tibioperoneal trunk stenosis was crossed in a similar fashion. The wire and catheter were advanced into the peroneal artery and subtraction angio confirmed
proper position in the true lumen. Exchanged out for a Elmer ST 0.014 wire. Due to the heavily calcified nature of the arterial disease and in an effort to modify the calcium to achieve maximum luminal gain with endovascular intervention I elected
to proceed with intravascular lithotripsy. A 5 mm x 80 mm E8 shockwave balloon was placed across the calcified tibioperoneal trunk stenosis under roadmap guidance. The balloon was gently inflated to 2 ceci in the tibioperoneal trunk. 2 rounds of
lithotripsy pulse delivery were administered at this location and the balloon was then inflated to 3 ceci. The balloon was then deflated and the remaining pulses were used to treat the stenoses in the popliteal artery and distal superficial femoral
artery. Alternating rounds of lithotripsy pulse delivery at sub-nominal pressure and angioplasty at nominal pressure was performed across the SFA and popliteal artery stenoses. In between rounds of pulse delivery and angioplasty the balloon was
deflated and repositioned under roadmap guidance. All 400 pulses were delivered.
Subsequent arteriogram demonstrated an improved but suboptimal result with scattered areas of dissection identified within the distal superficial femoral artery and popliteal artery. A residual stenosis was also identified in the tibioperoneal
trunk. A 4 mm x 40 millimeter angioplasty balloon was placed across the residual tibioperoneal trunk stenosis under roadmap guidance. The balloon was inflated to nominal pressure, held in place for 2-minute inflation and then deflated and removed
over the wire.
The residual disease in the superficial femoral artery and popliteal artery was treated by positioning overlapping Zilver PTX stents. A 6 mm x 140 mm Zilver PTX stent was placed across the popliteal artery and deployed in the desired location. A 6
mm x 100 mm Zilver PTX stent was overlapped slightly with the initial stent and deployed in the desired location in the distal superficial femoral artery. The entire length of the stents was profiled with a 5 mm angioplasty balloon.
COMPLETION ARTERIOGRAM: Good technical result. Patent superficial femoral artery and popliteal artery with no significant residual stenosis identified. Improved result in the tibioperoneal trunk with a mild degree of residual stenosis identified
due to eccentric calcified plaque. Tibial outflow was demonstrated through the peroneal artery.
Satisfied with this result we concluded the procedure. The sheath tip was pulled back into the right external iliac artery. The sheath was secured with the plan to pull it in the recovery area.
The patient tolerated the procedure well and was taken to the recovery area in stable condition.
Attestation: I was present and responsible for the entire procedure.
Signed:
Low Lee III, MD
[facility]
[phone] (cell)
[2024-04-26] MEDS: OCUVITE SOFTGEL 1 CAP PO (20:30)
[2024-04-26 21:26] LABS: Glucose - Point of Care 317 mg/dl (70-99)
[2024-04-26 21:28] LABS: Glucose - Point of Care 315 mg/dl (70-99)
[2024-04-26] MEDS: LANTUS 0.1 UNITS SC (21:58)
[2024-04-26] MEDS: LIORESAL 10 MG PO (22:03)
[2024-04-26] MEDS: CARDIZEM CD 120 MG PO (22:04)
--- NOTE | 2024-04-27 02:57 | DOWNTIME ---
There was a [employer] Client Assistant Cook Downtime on 04/27/2024 from 0100 to 04/27/2024 at 0252. Downtime documentation of patient's care, including medication administrations, has been reconciled in the electronic record per guidelines. Refer to the
patient's paper chart under the miscellaneous tab to see printed paper medication records and downtime forms.
[2024-04-27 03:07] VITALS: BP 99/47
[2024-04-27 07:00] VITALS: BP 124/52
[2024-04-27 07:22] LABS: Glucose - Point of Care 168 mg/dl (70-99)
[2024-04-27] MEDS: NOVOLOG FLEXPEN-LOW RESISTANCE 1 UNITS SC (08:12)
[2024-04-27] MEDS: TAPAZOLE 5 MG PO (08:13)
[2024-04-27] MEDS: PLAVIX 75 MG PO (08:13)
[2024-04-27] MEDS: FEOSOL 325 MG PO (08:13)
[2024-04-27] MEDS: VITAMIN B-12 1000 MCG PO (08:13)
[2024-04-27] MEDS: PROTONIX 40 MG PO (08:13)
[2024-04-27] MEDS: OCUVITE SOFTGEL 1 CAP PO (08:13)
[2024-04-27] MEDS: VITAMIN D3 (cholecalciferol) 25 MCG PO (08:13)
[2024-04-27] MEDS: LASIX 40 MG PO (08:13)
[2024-04-27] MEDS: ROXICODONE 5 MG PO (08:17)
--- NOTE | 2024-04-27 08:34 | W.PN.VS ---
Addendum entered and electronically signed by PRESTON Padilla 04/27/24 09:18:
Patient with advanced age over 80 years old and with body weight less than 60 kg indicating reduction in Eliquis dosing from 5 mg p.o. twice daily to 2.5 mg p.o. twice daily, this is further solidified with the adjustment to her antiplatelet
medication of discontinuing aspirin a 1 mg p.o. daily and adding Plavix 75 mg p.o. daily.
Original Note:
Today's Communication / Plan
-
See below.
Assessment/Plan
-
Assessment: 88-year-old female POD #1 Diagnostic left lower extremity arteriogram, IVL to left tibioperoneal trunk and left popliteal artery and superficial femoral artery, balloon angioplasty of tibioperoneal trunk, balloon angioplasty and
stenting of popliteal artery and distal superficial femoral artery
Plan:
Can restart anticoagulation today
Initiated Plavix 75 mg p.o. daily, discontinue aspirin 81 mg p.o. daily
Patient is stable for discharge to home
Patient will follow-up in our office with repeat ultrasounds in roughly 3 to 4 weeks, appointment placed in discharge instructions
Subjective Data
-
Date of Service: April 27, 2024
Patient seen and examined at bedside, offers no complaints. Reports continued intermittent pain at left ankle/foot where her wound is this is similar and unchanged from preop. Denies pain at right groin puncture site, chest pain, nausea, vomiting,
fever, and chills. Tolerating p.o. diet. Ambulating at baseline.
Objective Data
-
Vital Signs
Temp Pulse Resp BP Pulse Ox
98.5 F 85 16 124/52 94
04/27/24 03:07 04/27/24 08:13 04/27/24 03:07 04/27/24 08:13 04/27/24 03:07
Intake and Output
04/26/24 04/27/24 04/28/24
06:59 06:59 06:59
Intake Total 1440 / 1440
Balance 1440 / 1440
Intake:
Oral fluids 1440 / 1440
Other:
Number of approximated MODERATE 2
amounts of urine
Number of approximated LARGE 1
amounts of urine
Calcium 9.5 mg/dl (8.4-10.2) 04/26/24 08:34
Physical Exam
-
No apparent distress, resting in bed comfortably
No tachycardia
No dyspnea on room air
ABD flat, nontender, nondistended
Right groin puncture site CDI, no evidence of hematoma, surrounding compartments soft
Left foot positive DP Doppler signal, warm and feels well-perfused
[2024-04-27 08:39] LABS: Hematocrit 32.9 % (37.0-47.0); Hemoglobin 10.9 g/dL (12.0-16.0); Mean Corp Hgb Conc. 33.1 g/dL (33.0-37.0); Mean Corpuscular Hgb 26.3 pg (27.0-31.0); Mean Corpuscular Volume 79.5 fL (81.0-99.0); Mean Platelet Volume 12.2 fL (7.4-10.4); Platelet Count 186 10^3/uL (130-400); Red Blood Cell Count 4.14 10^6/uL (4.20-5.40); Red Cell Dist. Width 15.6 % (11.5-14.5); White Blood Cell Count 10.5 10^3/uL (4.8-10.8)
[2024-04-27] MEDS: SPIRIVA RESPIMAT 2.5 MCG 2 PUFF INH (08:41)
[2024-04-27 09:04] LABS: Blood Urea Nitrogen 26 mg/dl (7-17); Calcium 8.8 mg/dl (8.4-10.2); Carbon Dioxide 24 mmol/L (22-30); Chloride 105 mmol/L (98-107); Estimated Creatinine Clearance 35 ml/min; Glucose 190 mg/dl (70-99); Potassium 4.6 mmol/L (3.5-5.1); Sodium 136 mmol/L (135-145); eGFR 54.19
--- NOTE | 2024-04-27 09:19 | W.DS.TRANS ---
DC Summary - [employer] Consult[employer]
-
Discharge Instructions:
Sleep Apnea Risk Low
Discharge Diagnosis/Procedures Shockwave lithotripsy to superficial femoral
artery and popliteal arteries, stent placement
to superficial femoral artery
Diet As tolerated
Activity No strenuous activity
Driving Restrictions No driving for 24 hours
Bathing Restrictions OK to Shower
Others Tests Ultrasound appt: 05/31 @ 9am
Instructions:
Stand-Alone Forms: DC Instr - Vascular OR
Changes to Home Medications: Yes
Discharge Medications:
DC Medications w/original date entered in [facility]
cyanocobalamin (vitamin B-12) 1,000 mcg tablet 1,000 mcg PO DAILY Supplement 12/02/21
insulin glargine 100 unit/mL (3 mL) subcutaneous pen (Lantus Solostar U-100 Insulin) 20 units SC HS Diabetes 12/02/21
insulin lispro 100 unit/mL subcutaneous solution (Humalog U-100 Insulin) 0 - 9 sliding scale dose SC AC Diabetes 12/02/21
methimazole 5 mg tablet 5 mg PO DAILY Thyroid 12/02/21
pantoprazole 40 mg tablet,delayed release 40 mg PO DAILY Gastrointestinal issue 12/02/21
propranolol 20 mg tablet 20 mg PO Q6HPRN PRN 'heart' Palpitations 12/02/21
tiotropium bromide 2.5 mcg/actuation mist for inhalation (Spiriva Respimat) 2 puff inhalation R DAILY wheezing, sob 12/02/21
diltiazem HCl 120 mg capsule,extended release 24 hr 120 mg PO HS Heart disease/condition 12/03/21
baclofen 10 mg tablet 10 mg PO HS 01/06/24
ferrous sulfate 325 mg (65 mg iron) tablet (iron) 325 mg PO DAILY Supplement 01/06/24
vit C 250 mg-vit E 90 mg-zinc 40 mg-copper 1 [id number] capsule (PreserVision AREDS-2) 1 tab PO BID Supplement 01/06/24
levalbuterol tartrate 45 mcg/actuation aerosol inhaler 1 puff inhalation R Q6HPRN PRN shortness of breath 01/08/24
cholecalciferol (vitamin D3) 25 mcg (1,000 unit) tablet (Vitamin D3) 25 mcg PO DAILY 02/03/24
lorazepam 0.5 mg tablet 0.5 mg PO TIDPRN PRN anxiety #4 tabs 02/09/24
Nervive 50mg Tablet 50 mg PO HS 04/16/24
furosemide 40 mg tablet (Lasix) 40 mg PO DAILY 04/20/24
clopidogrel 75 mg tablet 75 mg PO DAILY #90 tabs 04/26/24
apixaban 5 mg tablet (Eliquis) 2.5 mg (1/2 x 5 mg) PO BID #120 tabs 04/27/24
Home Medication Changes
Discontinued aspirin 81 mg p.o. daily on Eliquis 5 mg p.o. twice daily
Initiated clopidogrel 75 mg p.o. daily and Eliquis 2.5 mg p.o. twice daily
Pending Results: No
[2024-04-27 11:00] VITALS: BP 126/55
[2024-04-27 11:06] LABS: Glucose - Point of Care 242 mg/dl (70-99)
--- NOTE | 2024-04-27 11:28 | CM ---
Patient lives alone and is independent. She has been medically cleared for discharge to home with no additional skilled services. Patient has arranged for transport home.
--- NOTE | 2024-04-27 11:59 | PTCARENOTE ---
Patient discharged home. This RN removed patient's IV and tele pack, patient assisted in dressing and gathering belongings in room. This RN reviewed patient's discharge instructions and medications, patient verbalized understanding. Patient being
transported home by transport service, taken down to main lobby via staff escort and wheelchair.
== END 2024-04-27 12:11 | disposition home or self-care (01) ==
LOC: CATH 08:14
PROVIDERS: Nurse Practitioner; ATTENDING PHYSICIAN Surgery Vascular Surgery
DX: I70.242 Atherosclerosis of native arteries of left leg with ulceration of calf (principal); L97.229 Non-pressure chronic ulcer of left calf with unspecified severity; E78.5 Hyperlipidemia, unspecified; J44.9 Chronic obstructive pulmonary disease, unspecified; Z87.891 Personal history of nicotine dependence; I48.92 Unspecified atrial flutter; I42.1 Obstructive hypertrophic cardiomyopathy; I25.2 Old myocardial infarction; I12.9 Hypertensive chronic kidney disease with stage 1 through stage 4 chronic kidney disease, or unspecified chronic kidney disease; E11.22 Type 2 diabetes mellitus with diabetic chronic kidney disease; N18.31 Chronic kidney disease, stage 3a; K21.9 Gastro-esophageal reflux disease without esophagitis
CPT/HCPCS: C9765; C9772; 75625; 75716; 76937; 80048; 82962; 85027; 85610; 85730; 93005; 94640; C1725; C1769; C1874; C1894; Q9967

== ENCOUNTER → 2024-05-31 11:02 | Outpatient (REF) | payer MEDICARE, SELFPAY | LOC: RAD 11:02 | PROVIDERS: ATTENDING PHYSICIAN Surgery Vascular Surgery; FAMILY PHYSICIAN Internal Medicine | DX: M79.605 Pain in left leg (principal) | CPT/HCPCS: 93922; 93925 ==

== ENCOUNTER → 2024-06-13 12:30 | Outpatient (REF) | payer MEDICARE, SELFPAY | LOC: HWRAD 12:30 | PROVIDERS: ATTENDING PHYSICIAN Internal Medicine | DX: R10.30 Lower abdominal pain, unspecified (principal); D64.9 Anemia, unspecified; R19.5 Other fecal abnormalities | CPT/HCPCS: 74177; Q9967 ==

== ENCOUNTER 2024-09-28 17:37 | Inpatient (IN) | payer MEDICARE, SELFPAY ==
[2024-09-28] VITALS (8 sets, daily range): BP systolic 104–135; BP diastolic 43–81; BMI 20.7; BMI 18.7
[2024-09-28 13:46] LABS: % Basophils 0.1 % (0-2); % Eosinophils 0.3 % (0-6); % Immature Granulocytes 0.9 % (0-0.5); % Lymphocytes 13.6 % (20.5-51.1); % Monocytes 16.3 % (1.7-9.3); % Neutrophils 68.8 % (42.2-75.2); Absolute Immature Granulocytes 0.1 10^3/uL (0-0.05); Absolute Lymphocytes 0.9 10^3/uL (1.2-3.4); Absolute Monocytes 1.1 10^3/uL (0.1-0.6); Absolute Neutrophils 4.7 10^3/uL (1.4-6.5); Hematocrit 30.1 % (37.0-47.0); Hemoglobin 9.6 g/dL (12.0-16.0); Mean Corp Hgb Conc. 31.9 g/dL (33.0-37.0); Mean Corpuscular Hgb 25.8 pg (27.0-31.0); Mean Corpuscular Volume 80.9 fL (81.0-99.0); Mean Platelet Volume 11.8 fL (7.4-10.4); Nucleated Red Blood Cells % 0 %; Platelet Count 187 10^3/uL (130-400); Red Blood Cell Count 3.72 10^6/uL (4.20-5.40); Red Cell Dist. Width 18.4 % (11.5-14.5); White Blood Cell Count 6.9 10^3/uL (4.8-10.8)
[2024-09-28 14:04] LABS: INR 1.46
[2024-09-28 14:06] LABS: ALT (SGPT) 18 U/L (0-35); AST (SGOT) 17 U/L (14-36); Albumin 3.6 g/dl (3.5-5.0); Alkaline Phosphatase 118 U/L (38-126); Blood Urea Nitrogen 24 mg/dl (7-17); Calcium 8.6 mg/dl (8.4-10.2); Carbon Dioxide 25 mmol/L (22-30); Chloride 101 mmol/L (98-107); Estimated Creatinine Clearance 41 ml/min; Glucose 172 mg/dl (70-99); Potassium 4.3 mmol/L (3.5-5.1); Sodium 136 mmol/L (135-145); Total Bilirubin 0.6 mg/dl (0.2-1.3); Total Protein 5.6 g/dl (6.3-8.2); eGFR > 60.00
--- NOTE | 2024-09-28 14:17 | ED.GENMED ---
History of Present Illness
General
Chief Complaint: Breathing Problem
Time Seen by Provider: 09/28/24 13:40
History of Present Illness
History of Present Illness:
88-year-old female with history of A-fib on Eliquis, CAD on Plavix, CHF, COPD, diabetes, hypertension presenting to the emergency department for difficulty breathing. Patient reports symptoms started this morning acutely. Does note that she has
had a nonproductive cough that also started today. Denies any fever or known sick contacts. Reports that she felt okay yesterday. She is not on any oxygen at home. Reports that she had a stomach biopsy a few months ago, and recently diagnosed
with stomach cancer, had her first session of chemotherapy last week. Denies any associated chest pain. Denies abdominal pain. Denies any increased swelling to her lower extremities. Denies additional acute medical complaints
Past History
Past History
ED Past Medical History: Arrthythmia (afib), CAD, CHF, GERD, HTN, Hypercholesterolemia, IDDM, Other (peripheral vascular disease, hypertrophic cardiomyopathy,) and Other (Paroxysmal atrial fib, coronary disease status post OH status post stents, and
diabetes, hypertension, hypercholesterolemia)
ED Past Surgical History: Cardiac (Cardiac ablation) and Gynecological (LEANN/BSO)
Social History
Tobacco: Former smoker
Alcohol: None
Personal:
Living: alone
Employment: Retired
Family History
Family History: Diabetes and CAD
Phy Exam
Physical Exam
Physical Exam:
General: Well-appearing, no clinical signs of dehydration, nontoxic and in no acute distress
HEENT: protecting airway
Neck: appears supple
CV: Normal heart rate, regular rhythm
Resp: Tachypneic, crackles at bases
Abd: No distention, nontender
Extremities: +1 pitting edema bilaterally, symmetric
Neuro: alert, no focal neurologic deficit
: deferred
Rectal: deferred
Psych: Normal affect
Skin: Intact
Scores
Heart Failure Risk
Heart Failure Risk Score: Yes
History of Stroke or TIA: No
History of intubation for respiratory distress: No
Heart rate on ED arrival >/= 110: Yes
SaO2 <90% on arrival on room air: Yes
HR >/=110 during 3min walk test (or too ill to perform test): Yes
ECG has acute ischemic changes: No
Urea >/=12mmol/L (BUN 33.6mg/dL): No
Serum CO2>/=35mmol/L: No
Troponin I or T elevated to [place] Level (0.4mg/dL): No
NT-proBNP >/=5,000ng/L (5,000pg/ml): Yes
HF Risk Score: 4
Admission Status: HIGH RISK 26.1% Consider SNF treatment or admission to hospital
Course
Orders/Labs/Results
Orders:
Orders
09/28/24 13:39
Complete Blood Count/With Diff Urgent
Comprehensive Metabolic Panel Urgent
Ferritin Urgent
Comment: ADD ON
Folate Urgent
Comment: ADD ON
Iron Urgent
Comment: ADD ON
PTT Urgent
Prothrombin Time Urgent
Total Iron Binding Urgent
Comment: ADD ON
Vitamin B12 Urgent
Comment: ADD ON
09/28/24 13:40
EKG [Electrocardiogram (*1)] Urgent
Reason for Study: Shortness of Breath
EKG- Treatment ONCE
09/28/24 13:54
CR Chest - 2 Views Urgent
Comment:
Reason For Exam: SOB
09/28/24 14:26
COVID-19 Antigen Urgent
Source: Nasal Swab
Influenza A+B Rapid Molecular Urgent
CL Source: Nasal Swab
Specimen Description:
09/28/24 Dinner
2000 calorie (17 carb) Diabetic
At Your Request: Full Participation
Diabetic Diet: Sodium, 2 Gram
09/28/24 15:51
Cefepime HCl [Maxipime] 2,000 mg IV NOW STA
Vancomycin 1 Gram/200 ml [Vancocin] 1 gram in 200 ml IV NOW
09/28/24 16:39
NT-proBNP Urgent
Troponin I Urgent
09/28/24 17:08
Procalcitonin Urgent
09/28/24 17:19
Admit/Transfer Patient As Directed
Co-Sign Provider:
Level of Care: Inpatient admission
Assign to:: Telemetry
Physician / Group: Diomedes
Diagnosis: Hypoxia, CHF
Reason for Telemetry: Acute Heart Failure
Date to Stop Telemetry: 10/01/24
Time to Stop Telemetry: 11:00
Reason for Hospitalization: IV Diuretics
Expected length of stay greater than two midnights?: Yes
ELOS- Estimated Length of Stay in days: 3
I certify the patient meets the requirements for IP care: Yes
PRN Pain Medication Management As Directed
May give lesser potent ordered pain med per pt: Yes
preference::
Protocol:: Medication orders for pain may be administered in a
manner that supports deferring to patient preference
when the pt is:
- Requesting an ordered lesser potent pain medication.
Least to most potent pain medications are defined
as: acetaminophen < NSAID < tramadol < opioids
(morphine, oxycodone, hydromorphone).
- Requesting a lesser dose of the same medication IF
ORDERED.
- Requesting a less intrusive route of administration
if both routes are prescribed by the provider (PO <
IV).
09/28/24 17:22
Code Status As Directed
Resuscitation Status: Do not resuscitate
Reached after discussion with pt or family/Healthcare POA: Yes
DNR Bracelet Application ONCE
09/28/24 17:29
Add On- LAB Routine
Tests Added?: iron, ferritin, tibc folate, vit b12
09/28/24 19:16
Acetaminophen [Tylenol] 650 mg PO Q6HPRN PRN
Dextrose 50%-Water [Dextrose 50% Syringe] 12.5 grams IV [id number] PRN
Glucagon [GlucaGen] 1 mg IM PRN PRN
Lorazepam [Ativan] 0.5 mg PO TIDPRN PRN
09/28/24 19:16
Echo 2D MMode Color/Doppler Routine
Reason for Study: heart failure
HF DIETARY CONSULT Routine
HF EDUCATOR CONSULT Routine
Comment:
WOUND/OSTOMY CONSULT Routine
Reason for Consult: Left Ankle
Activity As Directed
Activity Level: Out of Bed-Early Mobility
Bedside Glucose Monitoring As Directed
Frequency: AC&HS
Additional Instructions:: Change to q6h if pt on TPN, tube feeding or not eating
Intake/ Output As Directed
Frequency: Per unit guidelines
Patient Education As Directed
Type: CHF folder
Comment: give on admission. Document in Interdisciplinary Education record
Sleep Apnea Assessment by RN As Directed
Comment:
Physician Instructions:
Vital Signs As Directed
Frequency: Other
Additional Instructions:: Q12 or per unit guidelines if more frequent.
Weight As Directed
Frequency: Daily
Type of Scale: Standing Scale
Comment: Daily morning weight. If unable to stand, use balanced bed scale.
Weight As Directed
Frequency: Once
Type of Scale: Standing Scale
Comment: Upon Admission. If unable to stand, use balanced bed scale.
O2 Therapy [RESP] Routine
Titrate/Wean O2 to maintain O2 sat greater than (%): 92
Pulse Ox/cont/shift [RESP] Routine
Quantity: 1
Special Instructions: Daily pulse oximetry at rest. If greater than 92% at rest also obtain pulse oximetry
while ambulating as tolerated.
Ot Eval And Treat Routine
Pt Eval And Treat Routine
Activity Level: Out of Bed-Early Mobility
09/28/24 20:00
Apixaban [Eliquis] 2.5 mg PO BID
09/28/24 20:30
Troponin I Q6H
09/28/24 22:00
Diltiazem Extended Release [Cardizem Cd] 120 mg PO HS
insulin glargine [Lantus Solostar U-100 Insulin] 20 units SC HS
09/29/24 02:30
Troponin I Q6H
09/29/24 06:00
Basic Metabolic Panel IN AM
Complete Blood Count/No Diff IN AM
Glycohemoglobin (HgbA1c) IN AM
Magnesium IN AM
TSH Reflex To Free T4 IN AM
09/29/24 07:30
Insulin Aspart Corrective Mod [Novolog Flexpen-Moderate Resistance] See Protocol SC AC
09/29/24 08:00
Clopidogrel Bisulfate [Plavix] 75 mg PO DAILY
Ferrous Sulfate [Feosol] 325 mg PO DAILY
Furosemide [Lasix] 40 mg IV DAILY
Methimazole [Tapazole] 5 mg PO DAILY
Pantoprazole [Protonix] 40 mg PO DAILY
Tiotropium [place] 2.5 Mcg [Spiriva Respimat 2.5 Mcg] 2 puff INH R DAILY
09/30/24 06:00
Basic Metabolic Panel IN AM
10/01/24 06:00
Basic Metabolic Panel IN AM
10/01/24 11:00
DC Protocol for Telemetry ONCE
Abnormal Lab Results
09/28/24 09/28/24
13:39 16:39
RBC 3.72 L 10^6/uL
(4.20-5.40)
Hgb 9.6 L g/dL
(12.0-16.0)
Hct 30.1 L %
(37.0-47.0)
MCV 80.9 L fL
(81.0-99.0)
MCH 25.8 L pg
(27.0-31.0)
MCHC 31.9 L g/dL
(33.0-37.0)
RDW 18.4 H %
(11.5-14.5)
MPV 11.8 H fL
(7.4-10.4)
Abs Immat Gran (auto) 0.1 H 10^3/uL
(0-0.05)
Absolute Lymphs (auto) 0.9 L 10^3/uL
(1.2-3.4)
Absolute Monos (auto) 1.1 H 10^3/uL
(0.1-0.6)
Immature Gran % 0.9 H %
(0-0.5)
Lymphocytes % 13.6 L %
(20.5-51.1)
Monocytes % 16.3 H %
(1.7-9.3)
PT 18.0 H Sec
(11.4-14.6)
APTT 44.0 H Sec
(23.4-35.0)
BUN 24 H mg/dl
(7-17)
Glucose 172 H mg/dl
(70-99)
% Saturation 16 L %
(20-50)
Troponin I 0.061 H* ng/ml
Total Protein 5.6 L g/dl
(6.3-8.2)
Vitamin B12 > 1000 H pg/ml
(239931)
09/28/24 13:39
09/28/24 13:39
Vital Signs
Initial and Last Documented VS:
Initial Vital Signs
Temp Pulse Resp BP Pulse Ox
97.3 F 97 37 135/62 95
09/28/24 13:30 09/28/24 13:30 09/28/24 13:30 09/28/24 13:30 09/28/24 13:30
Last Documented Vital Signs
Temp Pulse Resp BP Pulse Ox
97.3 F 89 23 110/62 96
09/28/24 13:30 09/28/24 19:00 09/28/24 19:00 09/28/24 19:00 09/28/24 19:00
MDM/Problems Addressed
MDM/Problems Addressed:
88-year-old female with history of A-fib on Eliquis, hypertension, diabetes, COPD, CAD on Plavix presenting for shortness of breath that started this morning. Vital signs on arrival significant for tachypnea
On exam, patient is in no acute distress things, however is tachypneic, crackles and rhonchi at the bases. Differential considerations include malignant effusion, pneumonia, COVID versus influenza, CHF. EKG obtained, patient without chest pain,
without concern for ACS. Plan for laboratory analysis, chest x-ray imaging, viral swabs. Patient placed on supplemental O2 with initial saturations low. PE is also consideration, however patient notes compliance with Eliquis, lower suspicion
15:45 -patient's labs relatively unremarkable. Chest x-ray shows fluid versus infiltrate on the right lung field, pleural effusion on the left lung field. Patient reports that her cough feels very similar to when she had pneumonia in the past..
No present leukocytosis. However given immunocompromised state, will start on antibiotics. Holding fluids given concern for additional concern fluid overload state. Plan for admission given patient's symptoms and oxygen dependence
*EKG
Interpreted by ED Provider?: Yes
EKG Intrepretation Date: 09/28/24
EKG Intrepretation Time: 14:19
Interpretation: normal
Comparison EKG: no changes (05/27/24)
Heart Rate: 94
Rate: normal
Rhythm: sinus
[place]: left axis deviation
Interval: normal interval
QRS Pattern: left bundle branch block
Ischemia: no ischemia
*Critical Care Note
Total Time (30-74mins, 75-104mins- exclusive of procedures): Not Applicable
ED Attending Note
-
Portions of this chart may have been created with voice recognition software.� Occasional wrong word or��sound alike� substitutions may have occurred due to the inherent limitations of voice recognition software.
Discharge Plan
Departure
Patient Disposition: Admit
Date of Disposition: 09/28/24
Time of Disposition: 15:52
Presentation/result/management discussed w/ accepting MD/DO: Hospitalist
Patient with high blood pressure during this ER visit?: No
Condition: Fair
Discharge Problem:
Right lower lobe pneumonia, Shortness of breath
Interventions
Interventions:
*Risk Screen - Suicide Last Done: 09/28/24 13:37
*General Assessment Last Done: 09/28/24 13:35
*Neglect/Abuse Screening Last Done: 09/28/24 13:37
*ED COVID-19 Vaccine History Last Done: 09/28/24 13:35
ED- Cardiac Assessment Last Done: 09/28/24 14:22
ED- Pulmonary Assessment Last Done: 09/28/24 14:19
[2024-09-28 15:02] LABS: COVID-19 Antigen Negative (Negative)
--- NOTE | 2024-09-28 16:15 | HPS.HSE ---
Family Physician
-
Family Physician: Cielo Contreras DO
Chief Complaint
-
Shortness of Breath
History of Present Illness
Patient is an 88-year-old female past medical history of ASCVD, A-fib on anticoagulation, CHF, diabetes, CKD, and recently diagnosed peritoneal carcinomatosis who presents with shortness of breath. Patient reports that she woke acutely from sleep
around 4 AM this morning with significant shortness of breath. She sat up with some improvement, but then when she tried to lay back down she developed recurrent shortness of breath. She reports dry cough which started about the same time. She
notes increased lower extremity edema. Due to significant send she came to the emergency department for evaluation. She does not weigh herself on a regular basis but states at her chemotherapy on September 15 she weighed 122 pounds, weight today in
the emergency department is documented at 132 pounds, indicating 10 pound weight gain. She denies fever, sweats or chills.
Medical History
Past Medical History
Past Medical History: Reports Other
Additional Past Medical History:
Peritoneal Carcinomatosis
Peripheral Arterial Disease s/p Left Popliteal and Superficial Femoral Artery Stent
Coronary Artery Disease s/p Stent
Paroxysmal Atrial Fibrillation
Chronic HFpEF
Hypertrophic Cardiomyopathy
Essential Hypertension
Hyperlipidemia
Diabetes Mellitus, Type II
CKD Stage III
COPD
Hyperthyroidism
GERD
Anxiety/Depression
Past Surgical History: Reports Other
Additional Past Surgical History:
LEANN/BSO
Social History
Tobacco: Non-smoker
Alcohol: None
Family History
Family History: Not pertinent
Allergies / Home Medications
Allergies reflects when Allergies were last updated in [facility].
Home Medications with original date entered in [facility]
Allergy/Medication List:
Allergies
Allergy/AdvReac Type Severity Reaction Status Date / Time
doxycycline Allergy Mild Nausea / Verified 04/26/24 09:21
Vomiting
acetaminophen [From Ofirmev] Allergy Nausea Verified 04/26/24 09:21
atorvastatin Allergy muscle Verified 04/26/24 09:21
pain and
leg cramps
dabigatran etexilate Allergy patient Verified 04/26/24 09:21
states
esophageal
spasms
dabigatran etexilate mesylate Allergy esophageal Verified 04/26/24 09:21
[From Pradaxa] spasm
gabapentin Allergy Muscle pain Verified 04/26/24 09:21
magnesium Allergy diarrhea Verified 04/26/24 09:21
nifedipine Allergy Muscle pain Verified 04/26/24 09:21
Tetracyclines Allergy upset Verified 04/26/24 09:21
stomach
and nausea
Home Medications
cyanocobalamin (vitamin B-12) 1,000 mcg tablet 1,000 mcg PO DAILY Supplement 12/02/21
insulin glargine 100 unit/mL (3 mL) subcutaneous pen (Lantus Solostar U-100 Insulin) 20 units SC HS Diabetes 12/02/21
insulin lispro 100 unit/mL subcutaneous solution (Humalog U-100 Insulin) 0 - 9 sliding scale dose SC AC Diabetes 12/02/21
methimazole 5 mg tablet 5 mg PO DAILY Thyroid 12/02/21
pantoprazole 40 mg tablet,delayed release 40 mg PO DAILY Gastrointestinal issue 12/02/21
tiotropium bromide 2.5 mcg/actuation mist for inhalation (Spiriva Respimat) 2 puff inhalation R DAILY wheezing, sob 12/02/21
diltiazem HCl 120 mg capsule,extended release 24 hr 120 mg PO HS Heart disease/condition 12/03/21
ferrous sulfate 325 mg (65 mg iron) tablet (iron) 325 mg PO DAILY Supplement 01/06/24
levalbuterol tartrate 45 mcg/actuation aerosol inhaler 1 puff inhalation R Q6HPRN PRN shortness of breath 01/08/24
cholecalciferol (vitamin D3) 25 mcg (1,000 unit) tablet (Vitamin D3) 25 mcg PO DAILY 02/03/24
lorazepam 0.5 mg tablet 0.5 mg PO TIDPRN PRN anxiety #4 tabs 02/09/24
Nervive 50mg Tablet 50 mg PO HS 04/16/24
furosemide 40 mg tablet (Lasix) 40 mg PO DAILY 04/20/24
clopidogrel 75 mg tablet 75 mg PO DAILY #90 tabs 04/26/24
apixaban 5 mg tablet (Eliquis) 2.5 mg (1/2 x 5 mg) PO BID #120 tabs 04/27/24
acetaminophen 325 mg tablet (Tylenol) 650 mg PO Q6HPRN PRN left leg ankle wound 09/28/24
Review of Systems
-
A 12 point ROS was completed and negative except as noted: Yes
Constitutional: Denies Fever or Chills
Respiratory: Reports Cough and Trouble Breathing
Cardiac: Denies Chest Pain or Palpitations
Physical Exam
Vital Signs
Vital Signs
Temp Pulse Resp BP Pulse Ox
97.3 F 97 30 113/43 93
09/28/24 13:30 09/28/24 14:00 09/28/24 14:00 09/28/24 14:00 09/28/24 14:19
Physical Exam
General: Comfortable and Conversant
HEENT: Anicteric, Moist mucous membranes and Oxygen (Nasal Canula)
Respiratory: Other (Decreased breath sounds right base)
Cardiac: S1/S2, Irregular Rhythm and Gallop
GI: Soft and Non Tender
Rectal: Deferred by Provider
Musculoskeletal: No Clubbing, No Cyanosis and Other (+1 pitting edema bilateral lower extremities)
Skin: Warm, Dry and Other (Left ankle wound)
Neuro: Awake, Alert, Oriented and Nonfocal/grossly intact
Psych: Calm
Laboratory Results
-
09/28/24 13:39
09/28/24 13:39
Laboratory Results
PT 18.0 Sec (11.4-14.6) H 09/28/24 13:39
INR 1.46 09/28/24 13:39
APTT 44.0 Sec (23.4-35.0) H 09/28/24 13:39
Total Bilirubin 0.6 mg/dl (0.2-1.3) 09/28/24 13:39
AST 17 U/L (14-36) 09/28/24 13:39
ALT 18 U/L (0-35) 09/28/24 13:39
Alkaline Phosphatase 118 U/L (38-126) 09/28/24 13:39
Data Reviewed
-
Diagnostic Radiology: Report Reviewed by me
Lab Data: Labs Reviewed by me
Impression/Plan
-
Acute on Chronic HFpEF
-Consult Cardiology
-Last Echo was in 2020 - Will obtain updated echo
-Continue Lasix 40mg IV Daily
-Monitor Is&Os and Daily Weights
Elevated Troponin, likely non-ischemic myocardial injury in setting of acute heart failure
-Continue to trend troponin
Peritoneal Carcinomatosis, patient is not sure of primary
-Patient receives treatment at [place]
-Last chemotherapy September 15
Peripheral Arterial Disease s/p Left Popliteal and Superficial Femoral Artery Stent
Coronary Artery Disease s/p Stent
-Continue Plavix
Paroxysmal Atrial Fibrillation
-Continue Eliquis for anticoagulation
-Continue Diltiazem for rate control
Essential Hypertension
-Continue Diltiazem
Diabetes Mellitus, Type II
-Continue Lantus
-Monitor sugars and continue coverage insulin
CKD Stage III
-Monitor creatinine closely while on antibiotics
Microcytic Anemia
-Check iron studies
COPD, no acute exacerbation
-Continue Spiriva
-Continue levalbuterol neb PRN
Hyperthyroidism
-Continue methimazole
GERD
-Continue Protonix
DVT Proph: Eliquis
Code Status: DNR
[2024-09-28 17:26] LABS: NT-proBNP 16300 pg/ml; Troponin I 0.061 ng/ml
[2024-09-28 17:44] LABS: Procalcitonin 0.08 ng/ml (0.0-0.25)
[2024-09-28 17:57] LABS: Iron 55 ug/dl (37-170)
[2024-09-28 18:07] LABS: Percent Saturation 16 % (20-50); Total Iron Binding Capacity 325 ug/dl (265-497)
[2024-09-28] MEDS: LASIX 40 MG IV (18:39)
[2024-09-28 18:50] LABS: Ferritin 53.8 ng/ml (11.1-264.0)
[2024-09-28 19:21] LABS: Folate 10.6 ng/ml (2.76-20); Vitamin B12 > 1000 pg/ml (239-931)
--- NOTE | 2024-09-28 19:31 | W.PN.UPDATE ---
Update Note
Progress Note Update
Attending addendum
Patient seen independently
88-year-old woman past medical history of ASCVD, A-fib on anticoagulation, CHF, diabetes, CKD, and recently diagnosed peritoneal carcinomatosis who presents with shortness of breath. Patient reports that she woke acutely from sleep around 4 AM this
morning with significant shortness of breath. She sat up with some improvement, but then when she tried to lay back down she developed recurrent shortness of breath. She reports dry cough which started about the same time. She notes increased
lower extremity edema. Due to significant send she came to the emergency department for evaluation. She does not weigh herself on a regular basis but states at her chemotherapy on September 15 she weighed 122 pounds, weight today in the emergency
department is documented at 132 pounds, indicating 10 pound weight gain. She denies fever, sweats or chills.
Medical History
Past Medical History
Past Medical History: Reports Other
Additional Past Medical History:
Peritoneal Carcinomatosis
Peripheral Arterial Disease s/p Left Popliteal and Superficial Femoral Artery Stent
Coronary Artery Disease s/p Stent
Paroxysmal Atrial Fibrillation
Chronic HFpEF
Hypertrophic Cardiomyopathy
Essential Hypertension
Hyperlipidemia
Diabetes Mellitus, Type II
CKD Stage III
COPD
Hyperthyroidism
GERD
Anxiety/Depression
LEANN/BSO
Physical Exam
General: Comfortable and Conversant
HEENT: Anicteric, Moist mucous membranes and Oxygen (Nasal Canula)
Respiratory: Other (Decreased breath sounds right base), coughing during exam
Cardiac: S1/S2, Irregular Rhythm and Gallop
GI: Soft and Non Tender
Psych: Calm
Impression/Plan
1. Acute on Chronic HFpEF, BNP very elevated
-Consult Cardiology
-echo
-Lasix 40mg IV Daily
-JUN
-Telemetry
2. Elevated Troponin, likely non-ischemic myocardial injury in setting of acute heart failure
-trend troponin until peaked
Please see PA note for full details on:
Peritoneal Carcinomatosis, patient is not sure of primary
Peripheral Arterial Disease s/p Left Popliteal and Superficial Femoral Artery Stent
Paroxysmal Atrial Fibrillation
Essential Hypertension
Diabetes Mellitus, Type II
CKD Stage III
Microcytic Anemia
COPD, no acute exacerbation
Hyperthyroidism
GERD
DVT Proph: Eliquis
Code Status: DNR
[2024-09-28] MEDS: ELIQUIS 2.5 MG PO (21:13)
[2024-09-28 21:50] LABS: Troponin I 0.074 ng/ml
[2024-09-28 21:54] LABS: Glucose - Point of Care 234 mg/dl (70-99)
[2024-09-28] MEDS: LANTUS 0.2 UNITS SC (22:08)
[2024-09-29] VITALS (8 sets, daily range): BP systolic 110–154; BP diastolic 45–86; PULSE 97; O2SAT 98–100; BMI 18.9
--- NOTE | 2024-09-29 07:26 | W.PN.HOSP.TC ---
Today's Communication/Plan
-
pain control
diuresis
wean O2 supplementation as tolerated
wound care
PT/OT appreciated home health
Assessment / Plan
Assessment / Plan
Physical Exam
General: Comfortable and Conversant
HEENT: Anicteric, Moist mucous membranes
Respiratory: Bibasilar crackles on nasal cannula oxygen supplementation
Cardiac: S1/S2, Irregular Irregular
GI: Soft and Non Tender
Musculoskeletal: No Clubbing, No Cyanosis, +1 pitting edema bilateral lower extremities, LLE wound bandage clean dry intact
Neuro: AOx3
Psych: Calm
88F ASCVD afib CHF DM CKD Peritoneal Carcinomatosis on Chemo COPD hyperthyroidism here for Acute HFrEF
Acute HFrEF
-Consult Cardiology appreciated
-ECHO appreciated EF 30-35% MR mild/mod (EF declined from previous 55% 12/13/20)
-Continue Lasix 40mg IV Daily
-Monitor Is&Os and Daily Weights
Elevated Troponin, likely non-ischemic myocardial injury in setting of acute heart failure
-Chest pain free
-Troponin trended to peak 0.080 since trended down
Peritoneal Carcinomatosis
-Patient receives treatment at [place]
-Last chemotherapy September 15, next due Oct 06
Peripheral Arterial Disease s/p Left Popliteal and Superficial Femoral Artery Stent
Coronary Artery Disease s/p Stent
-Continue Plavix
Lt medial ankle arterial wound
-pain control prn tramadol 25 mg titrated up to 50 mg Q6HPRN mod severe pain
Paroxysmal Atrial Fibrillation
-Continue Eliquis for anticoagulation
-Continue Diltiazem for rate control
Essential Hypertension
-Continue Diltiazem
Diabetes Mellitus, Type II
-Continue Lantus
-Monitor sugars and continue coverage insulin
CKD Stage III
-Monitor creatinine closely while on antibiotics
Microcytic Anemia
-Iron studies appreciated, iron level non-deficient though saturation is mildly low
-H&H stable, cont to monitor
COPD, no acute exacerbation
-Continue Spiriva
-Continue levalbuterol neb PRN
Hyperthyroidism
-Continue methimazole
GERD
-Continue Protonix
DVT Proph: Eliquis
PT/OT appreciated home health
Code Status: DNR
I spent a total of 50 minutes with the patient or on the floor. More than 50% of this time involved counseling and coordination of care.
Anticipated Discharge: 24 - 48 hours
Subjective/Interval History
-
Date of Service: September 29, 2024
Sitting up comfortably in bed. Reports significant pain lower ext's especially Lt LE wound.
Objective Data
-
Labs:
Laboratory Results
09/29/24
06:59
WBC Pending
Hgb Pending
Hct Pending
Plt Count Pending
Sodium Pending
Potassium Pending
Chloride Pending
Carbon Dioxide Pending
BUN Pending
Creatinine Pending
Glucose Pending
Calcium Pending
Vital Signs:
Vital Signs
Temp Pulse Resp BP Pulse Ox
98.2 F 86 18 127/54 100
09/29/24 03:10 09/29/24 03:10 09/29/24 03:10 09/29/24 03:10 09/29/24 03:10
[2024-09-29] MEDS: SPIRIVA RESPIMAT 2.5 MCG 2 PUFF INH (07:51)
[2024-09-29 08:06] LABS: Hematocrit 28.4 % (37.0-47.0); Hemoglobin 9.1 g/dL (12.0-16.0); Mean Corpuscular Hgb 25.6 pg (27.0-31.0); Mean Corpuscular Volume 79.8 fL (81.0-99.0); Mean Platelet Volume 11.7 fL (7.4-10.4); Platelet Count 165 10^3/uL (130-400); Red Blood Cell Count 3.56 10^6/uL (4.20-5.40); Red Cell Dist. Width 18.1 % (11.5-14.5)
[2024-09-29 08:13] LABS: Glucose - Point of Care 67 mg/dl (70-99)
[2024-09-29 08:28] LABS: Blood Urea Nitrogen 27 mg/dl (7-17); Calcium 8.6 mg/dl (8.4-10.2); Carbon Dioxide 33 mmol/L (22-30); Chloride 98 mmol/L (98-107); Estimated Creatinine Clearance 29 ml/min; Glucose 76 mg/dl (70-99); Magnesium 2.1 mg/dl (1.6-2.3); Potassium 4.4 mmol/L (3.5-5.1); Sodium 136 mmol/L (135-145); eGFR 43.54
[2024-09-29 08:34] LABS: Glucose - Point of Care 71 mg/dl (70-99)
[2024-09-29] MEDS: NOVOLOG FLEXPEN-MODERATE RESISTANCE SC ×2 (08:37→11:30)
[2024-09-29] MEDS: PROTONIX 40 MG PO (08:38)
[2024-09-29] MEDS: LASIX 40 MG IV (08:38)
[2024-09-29] MEDS: TAPAZOLE 5 MG PO (08:41)
[2024-09-29] MEDS: PLAVIX 75 MG PO (08:41)
[2024-09-29] MEDS: ELIQUIS 2.5 MG PO ×2 (08:41→20:12)
[2024-09-29] MEDS: FEOSOL 325 MG PO (08:42)
[2024-09-29 09:04] LABS: TSH Reflex To Free T4 2.55 uIU/ml (0.47-4.68)
--- NOTE | 2024-09-29 09:30 | CON.CAR ---
Addendum entered and electronically signed by Beto Das MD 09/29/24 12:21:
88 yo female with PMH of paroxysmal A fib on eliquis, PAD s/p intervention 04/2024, chronic HFPEF, peritoneal carcinomatosis on palliative chemo is admitted with SOB. There is no chest pain. Exam with irregular rhythm, II/ systolic murmur at RUSB,
trace LE edema. Cr 1.2. EKG: significant artifact, A fib vs sinus, PAC's.
Acute HF. LVEF was 55% in 2020. Continue IV lasix. Repeat echo for LVEF.
She is on eliquis for A fib, and plavix for PAD.
Original Note:
Consultation
Consultation Request
Date/Time Consultation Requested: 09/28/232202
Date/Time Consultation Performed: 09/29/23929
Requesting Provider: Jana Lindsey
Performing Provider: Camille JOHNSTON for Dr. Jefferson
Reason for Consultation: CHF
Medical History
-
Chief Complaint: SOB
History of Present Illness:
88 y/o female with PAF (prior ablations) on Eliquis, PAD, CAD with stenting, HFpEF, hypertension, LBBB, COPD, , some degree of HCM/outflow obstruction, statin intolerance, hx CVA, prior GIB, peritoneal carcinomatosis on chemotherapy (carboplatin)
who is here for SOB that woke her up out of sleep yesterday AM. She has also noted LE edema. BNP 16,300. She is admitted for CHF exacerbation and is s/p IV lasix.
Past Medical History
Past Medical History: Arrhythmias, CAD and CHF
Social History
Tobacco: Non-Smoker
Family History
Family History: Reviewed & Not Pertinent
Allergies / Home Medications
Allergy/AdvReac Type Severity Reaction Status Date / Time
acetaminophen [From [facility]] Allergy Nausea Verified 04/26/24 09:21
atorvastatin Allergy muscle Verified 04/26/24 09:21
pain and
leg cramps
dabigatran etexilate Allergy patient Verified 04/26/24 09:21
states
esophageal
spasms
dabigatran etexilate mesylate Allergy esophageal Verified 04/26/24 09:21
[From Pradaxa] spasm
doxycycline Allergy Nausea / Verified 09/28/24 17:42
Vomiting
gabapentin Allergy Muscle pain Verified 04/26/24 09:21
magnesium Allergy diarrhea Verified 04/26/24 09:21
nifedipine Allergy Muscle pain Verified 04/26/24 09:21
Tetracyclines Allergy upset Verified 04/26/24 09:21
stomach
and nausea
�Medication �Instructions �Recorded �Confirmed �Type
cyanocobalamin (vitamin B-12) 1,000 mcg PO DAILY Supplement 12/02/21 09/28/24 History
1,000 mcg tablet
insulin glargine 100 unit/mL (3 20 units SC HS Diabetes 12/02/21 09/28/24 History
mL) subcutaneous pen (Lantus
Solostar U-100 Insulin)
insulin lispro 100 unit/mL 0 - 9 sliding scale dose SC AC 12/02/21 09/28/24 History
subcutaneous solution (Humalog Diabetes
U-100 Insulin)
methimazole 5 mg tablet 5 mg PO DAILY Thyroid 12/02/21 09/28/24 History
pantoprazole 40 mg tablet,delayed 40 mg PO DAILY Gastrointestinal 12/02/21 09/28/24 History
release issue
tiotropium bromide 2.5 2 puff inhalation R DAILY 12/02/21 09/28/24 History
mcg/actuation mist for inhalation wheezing, sob
(Spiriva Respimat)
diltiazem HCl 120 mg 120 mg PO HS Heart 12/03/21 09/28/24 History
capsule,extended release 24 hr disease/condition
ferrous sulfate 325 mg (65 mg 325 mg PO DAILY Supplement 01/06/24 09/28/24 History
iron) tablet (iron)
levalbuterol tartrate 45 1 puff inhalation R Q6HPRN PRN 01/08/24 09/28/24 History
mcg/actuation aerosol inhaler shortness of breath
cholecalciferol (vitamin D3) 25 25 mcg PO DAILY 02/03/24 09/28/24 History
mcg (1,000 unit) tablet (Vitamin
D3)
lorazepam 0.5 mg tablet 0.5 mg PO TIDPRN PRN anxiety #4 02/09/24 09/28/24 Rx
tabs
Nervive 50mg Tablet 50 mg PO HS 04/16/24 09/28/24 History
furosemide 40 mg tablet (Lasix) 40 mg PO DAILY 04/20/24 09/28/24 History
clopidogrel 75 mg tablet 75 mg PO DAILY #90 tabs 04/26/24 09/28/24 Rx
apixaban 5 mg tablet (Eliquis) 2.5 mg (1/2 x 5 mg) PO BID #120 04/27/24 09/28/24 Rx
tabs
acetaminophen 325 mg tablet 650 mg PO Q6HPRN PRN left leg 09/28/24 09/28/24 History
(Tylenol) ankle wound
Review of Systems
-
History Source: Patient
All other systems: Negative unless noted
Respiratory: Trouble Breathing
Musculoskeletal: Edema
Physical Exam
Vital Signs
Temp Pulse Resp BP Pulse Ox
98.8 F 93 14 128/55 96
09/29/24 07:44 09/29/24 08:38 09/29/24 08:03 09/29/24 08:38 09/29/24 08:03
Lab Results
09/29/24 06:59
09/29/24 06:59
Troponin I 0.080 ng/ml H* 09/29/24 02:33
Mux-X-Aueqddtabhb Pept 49044 pg/ml 09/28/24 16:39
Physical Exam
General: No Apparent Distress
HEENT: Normocephalic and Anicteric
Respiratory: Crackles
Skin: Warm and Dry
Neuro: AO x 3
Psych: Calm
Impression / Plan
-
Fipgw-sc-umiuewn HFpEF:
-echo currently being updated
-continue IV Lasix, which requires intensive monitoring. On Lasix 40 mg PO daily as OP.
PAF:
-stable in SR
-continue Eliquis for OAC
-continue diltiazem
Peritoneal carcinomatosis:
-just started OP chemo- from OP notes looks like palliative treatment with carboplatin
CAD:
-stable without angina
Acute, non-ischemic myocardial injury in setting of CHF
COPD: per primary
Anemia:
-denies any clinical bleeding
-montior
Data Reviewed
-
EKG: Tracing Personally Visualized and interpreted (Baseline artifact, but LBBB- to repeat- She is in SR on monitor so unlikely AFIB)
Radiology: Report Reviewed by me (CXR: Prominent bilateral pulmonary interstitial markings at least a portion of which may be chronic with possible superimposed interstitial edema. Small bilateral pleural effusions. Cannot exclude some additional
bibasilar opacity such as subsegmental atelectasis, less likely pneumonia.)
Medical Tests (Nuc Med, Echo etc): Report Reviewed by me (Echo 12/13/20: EF is 55%. Mild LVOT outflow gradient of 59 mmHg using the Valsalva maneuver. Mild to moderate aortic stenosis.)
Labs: Labs Reviewed by me
[2024-09-29 10:18] LABS: Glycohemoglobin (HgbA1c) 7.2 % (4.0-5.6)
[2024-09-29 11:14] LABS: Glucose - Point of Care 200 mg/dl (70-99)
[2024-09-29] MEDS: ULTRAM 25 MG PO (11:36)
[2024-09-29 12:24] LABS: Troponin I 0.063 ng/ml
--- NOTE | 2024-09-29 12:51 | WOUNDNOTE ---
LEFT MEDIAL ANKLE
--- NOTE | 2024-09-29 12:52 | WOUNDNOTE ---
LEFT MEDIAL ANKLE
--- NOTE | 2024-09-29 12:52 | WOUNDNOTE ---
[facility] RN note: Patient admitted with SOB
See H&P for complete history.
PMH: Per Physician note, Peritoneal Carcinomatosis, Peripheral Arterial Disease s/p Left Popliteal and Superficial Femoral Artery Stent,
Coronary Artery Disease s/p Stent,Paroxysmal Atrial Fibrillation, Chronic HFpE, Hypertrophic Cardiomyopathy, Essential Hypertension, Hyperlipidemia
Diabetes Mellitus, Type II, CKD Stage III, COPD, Hyperthyroidism, GERD, Anxiety/Depression
Wound Location and type/assessment: Patient admitted with left medial ankle wound, appears arterial. Patient reports pain in leg/wound and was medicated with Tramadol prior to assessment. Leg is also dry with venous stasis changes. Patient reports
having wound for over a year and has followed with Dr. Lee for left popiteal and femoral artery stent. Most recent left LE DAVID .85 and TBI .13. She has also seen Dr. Schwab at [facility] but stopped going due to other health issues. She said she has
not worn compression for many months and swelling recently increased in LE. She has a faint palpable pedal pulse. Lastly, patient said she was advised to make an appointment with Dr. Mota to address wound. Some MASD to buttocks, heels intact.
Appetite: Recently poor but states it has been improving.
Pressure redistribution devices in place: Centrella Pro. Turns easily in bed. Patient positioned herself on side of the bed after assessment.
Plan: Wound cleaned with normal saline and dressed with adaptic, alginate and silicone border foam. Patient wound like to hold off on compression at this time due to pain. Will recommend Mineral oil for dry skin on legs. Plan reviewed with Dr. Vasques
via TT and orders confirmed. Contact info for Dr. Mota added to discharge instructions per patient request. RN, Salome damico. Care plan updated, will follow as needed.
--- NOTE | 2024-09-29 13:02 | CM ---
CM reviewed chart, patient seen bedside, initial assessment completed. Patient resides independently in an apartment, 14 steps to enter. Patient has a rolling walker at home, reports [facility] in past, denies SNF history. Patient on O2, does not
wear home O2, does have nebulizer. Patient confirms PCP Cielo Contreras, pharmacy [facility], confirms prescription coverage. CM discussed PT recommendations of VN, patient declining at this time. CM will continue to follow for all discharge
planning needs.
Plan; home no needs, declining VN at this time.
[2024-09-29 13:14] LABS: Glucose - Point of Care 178 mg/dl (70-99)
[2024-09-29] MEDS: HYDROPHOR 1 APPLIC TOPICAL (14:22)
[2024-09-29 16:56] LABS: Glucose - Point of Care 264 mg/dl (70-99)
[2024-09-29] MEDS: TOPROL XL 25 MG PO (17:43)
[2024-09-29] MEDS: NOVOLOG FLEXPEN-MODERATE RESISTANCE 5 UNITS SC (17:46)
[2024-09-29] MEDS: ULTRAM 50 MG PO (20:11)
[2024-09-29 21:12] LABS: Glucose - Point of Care 138 mg/dl (70-99)
[2024-09-29] MEDS: LANTUS 0.2 UNITS SC (21:40)
[2024-09-30] VITALS (8 sets, daily range): BP systolic 98–119; BP diastolic 40–55; PULSE 90; O2SAT 96; BMI 18.9
--- NOTE | 2024-09-30 07:08 | W.PN.HOSP.TC ---
Today's Communication/Plan
-
Cont diuresis rate blood pressure control as per Cardio
pain control
PT/OT
wean O2 supplementation as tolerated
Assessment / Plan
Assessment / Plan
Physical Exam
General: Comfortable and Conversant
HEENT: Anicteric, Moist mucous membranes
Respiratory: Bibasilar crackles on nasal cannula oxygen supplementation
Cardiac: S1/S2, Irregular Irregular
GI: Soft and Non Tender
Musculoskeletal: No Clubbing, No Cyanosis, +1 pitting edema bilateral lower extremities, LLE wound bandage clean dry intact
Neuro: AOx3
Psych: Calm
88F ASCVD afib CHF DM CKD Peritoneal Carcinomatosis on Chemo COPD hyperthyroidism here for Acute HFrEF
Acute HFrEF
-Consult Cardiology appreciated home Cardizem switched to Toprol-XL 25 mg daily for GDMT
-ECHO appreciated EF 30-35% MR mild/mod (EF declined from previous 55% 12/13/20)
-Continue Lasix IV Daily reduced from 40 to 20 as per cardio d/t low pressures
-Monitor Is&Os and Daily Weights
Elevated Troponin, likely non-ischemic myocardial injury in setting of acute heart failure
-Chest pain free
-Troponin trended to peak 0.080 since trended down
Peritoneal Carcinomatosis
-Patient receives treatment at [place]
-Last chemotherapy September 15, next due Oct 06
Peripheral Arterial Disease s/p Left Popliteal and Superficial Femoral Artery Stent
Coronary Artery Disease s/p Stent
-Continue Plavix
Lt medial ankle arterial wound
-pain control prn 50 mg Q6HPRN mod severe pain, pain well controlled at this time
Paroxysmal Atrial Fibrillation
-Continue Eliquis for anticoagulation
-Home Diltiazem switched to Metoprolol as above
Essential Hypertension
-Home Diltiazem switched to Metoprolol as above
-cont Lasix as above
Diabetes Mellitus, Type II
-Continue Lantus
-Sliding scale
-monitor and titrate insulin regimen as necessary.
CKD Stage III
-Monitor creatinine closely while on antibiotics
Microcytic Anemia
-Iron studies appreciated, iron level non-deficient though saturation is mildly low
-H&H stable, cont to monitor
COPD, no acute exacerbation
-Continue Spiriva
-Continue levalbuterol neb PRN
Hyperthyroidism
-Continue methimazole
GERD
-Continue Protonix
DVT Proph: Eliquis
PT/OT appreciated home health
Code Status: DNR
I spent a total of 45 minutes with the patient or on the floor. More than 50% of this time involved counseling and coordination of care.
Anticipated Discharge: 24 - 48 hours
Subjective/Interval History
-
Date of Service: September 30, 2024
Reports pain well controlled at this time, sleep well for the first time in a 'year' after prn tramadol last night. Remains on oxygen supplementation.
Objective Data
-
Labs:
Laboratory Results
09/30/24
06:00
WBC Pending
Hgb Pending
Hct Pending
Plt Count Pending
Sodium Pending
Potassium Pending
Chloride Pending
Carbon Dioxide Pending
BUN Pending
Creatinine Pending
Glucose Pending
Calcium Pending
Vital Signs:
Vital Signs
Temp Pulse Resp BP Pulse Ox
99.1 F 92 20 110/54 92
09/30/24 03:29 09/30/24 03:29 09/30/24 03:29 09/30/24 03:29 09/30/24 03:29
I&O
09/29/24 09/30/24 10/01/24
06:59 06:59 06:59
Intake Total 540 / 540
Balance 540 / 540
[2024-09-30 07:34] LABS: Hematocrit 28.5 % (37.0-47.0); Hemoglobin 9.4 g/dL (12.0-16.0); Mean Corpuscular Hgb 25.8 pg (27.0-31.0); Mean Corpuscular Volume 78.1 fL (81.0-99.0); Mean Platelet Volume 11.2 fL (7.4-10.4); Platelet Count 173 10^3/uL (130-400); Red Blood Cell Count 3.65 10^6/uL (4.20-5.40); Red Cell Dist. Width 17.7 % (11.5-14.5); White Blood Cell Count 6.4 10^3/uL (4.8-10.8)
[2024-09-30 07:44] LABS: Glucose - Point of Care 163 mg/dl (70-99)
[2024-09-30] MEDS: SPIRIVA RESPIMAT 2.5 MCG 2 PUFF INH (07:47)
[2024-09-30] MEDS: TAPAZOLE 5 MG PO (08:00)
[2024-09-30] MEDS: NOVOLOG FLEXPEN-MODERATE RESISTANCE 1 UNITS SC ×2 (08:00→12:42)
[2024-09-30] MEDS: ELIQUIS 2.5 MG PO ×2 (08:00→19:35)
[2024-09-30] MEDS: FEOSOL 325 MG PO (08:00)
[2024-09-30] MEDS: PLAVIX 75 MG PO (08:01)
[2024-09-30] MEDS: PROTONIX 40 MG PO (08:01)
--- NOTE | 2024-09-30 08:01 | W.PN.CD ---
Today's Communication / Plan
-
-Echocardiogram yesterday revealed a decline in LVEF, now 30-35%.
-Blood pressure is on the lower side; will decrease Lasix from 40 mg IV daily to 20 mg IV daily.
-Change from diltiazem to Toprol-XL 25 mg daily for GDMT.
-Further GDMT limited by renal dysfunction and low blood pressure.
-Conservative cardiac management overall; poor candidate for aggressive measures.
Impression / Plan
-
88 y/o female with PAF (prior ablations) on Eliquis, PAD, CAD with stenting, HFpEF, hypertension, LBBB, CKD, COPD, , some degree of HCM/outflow obstruction, statin intolerance, hx CVA, prior GIB, peritoneal carcinomatosis on chemotherapy
(carboplatin) who is here for SOB. She has also noted LE edema. BNP 16,300. She is admitted for CHF exacerbation.
Acute HFrEF (F 30-35%):
-Echocardiogram yesterday revealed a decline in LVEF, now 30-35%.
-Blood pressure is on the lower side; will decrease Lasix from 40 mg IV daily to 20 mg IV daily.
-Change from diltiazem to Toprol-XL 25 mg daily for GDMT.
-Further GDMT limited by renal dysfunction and low blood pressure.
-Conservative cardiac management overall; poor candidate for aggressive measures.
PAF:
-Stable; remains in sinus rhythm.
-continue Eliquis for OAC
-Changed from diltiazem to Toprol-XL.
Peritoneal carcinomatosis:
-just started OP chemo- from OP notes looks like palliative treatment with carboplatin
CAD:
-Remains stable without angina.
Minimal troponin elevation:
-Most likely secondary to acute nonischemic myocardial injury in the setting of CHF and CKD.
CKD:
-Continue to monitor creatinine.
Diabetes:
-Hemoglobin A1c 7.2%; management as per primary team.
COPD: per primary
Anemia:
-denies any clinical bleeding
-montior
Transthoracic Echocardiogram (09/29/2024:
Left ventricular ejection fraction is 30-35%.
Septal hypokinesis.
Stage II diastolic dysfunction suggestive of abnormal relaxation and increased
filling pressures.
Mild/moderate mitral regurgitation.
Mild aortic stenosis.
Physical Exam
Vital Signs/Labs
Vital Signs
Temp Pulse Resp BP Pulse Ox
99.1 F 81 14 110/54 98
09/30/24 03:29 09/30/24 07:52 09/30/24 07:52 09/30/24 03:29 09/30/24 07:52
09/29/24 09/30/24 10/01/24
06:59 06:59 06:59
Actual Weight 56.472 kg 56.472 kg
09/30/24 07:08
PT 18.0 Sec (11.4-14.6) H 09/28/24 13:39
INR 1.46 09/28/24 13:39
APTT 44.0 Sec (23.4-35.0) H 09/28/24 13:39
Magnesium 2.1 mg/dl (1.6-2.3) 09/29/24 06:59
09/28/24
16:39
Tym-E-Mioppzasapk Pept 72519
LAB Results
09/28/24 09/28/24 09/29/24
16:39 21:13 02:33
Troponin I 0.061 H* 0.074 H* 0.080 H*
09/29/24
11:38
Troponin I 0.063 H*
Physical Exam
Constitutional: No acute distress and Comfortable
EENT: Anicteric
Cardiovascular: Rhythm & rate is regular, Pedal edema present (1+), Systolic murmur present (3/6) and S1S2 is normal
Respiratory: Respiratory effort normal and Crackles Present (Bibasilar)
GI: Soft
Neuro/Psych: AO x 3
Other: Skin (warm)
Data Reviewed
-
Date of Service: September 30, 2024
EKG: Tracing Personally Visualized and interpreted (Telemetry: Sinus rhythm)
Echo: Report Reviewed by me (EF 30-35%)
Labs: Labs Reviewed by me
[2024-09-30] MEDS: HYDROPHOR 1 APPLIC TOPICAL (08:03)
[2024-09-30] MEDS: LASIX IV (08:05)
[2024-09-30 08:13] LABS: Blood Urea Nitrogen 34 mg/dl (7-17); Calcium 8.7 mg/dl (8.4-10.2); Carbon Dioxide 25 mmol/L (22-30); Chloride 98 mmol/L (98-107); Estimated Creatinine Clearance 32 ml/min; Glucose 161 mg/dl (70-99); Magnesium 2.2 mg/dl (1.6-2.3); Phosphorus 3.7 mg/dl (2.5-4.5); Potassium 5.2 mmol/L (3.5-5.1); Sodium 133 mmol/L (135-145); eGFR 48.33
--- NOTE | 2024-09-30 08:32 | PN.CDI ---
CDI
- -
CDI:
Physician Documentation Request
Admit Date: 09/28/24 17:37
Dear Doctor Caprice,
Clinical Indicators:
Patient admitted with acute HFrEF; currently undergoing chemotherapy for peritoneal carcinomatosis.
09/29 note/assessment: -'...NFPE revealed moderate muscle wasting at temporals and shoulders as well as mild fat
loss at orbitals'
-'As per ASPEN/AND pt meets criteria for mild protein calorie malnutrition in the context of
chronic illness with NFPE findings of moderate muscle wasting at temporals and shoulders as
well as mild fat loss at orbitals.'
Based on the above information and your assessment, which of the following most accurately represents the patient's nutritional status?
Mild Protein Calorie Malnutrition
Other (please specify)
[place] Criteria ([facility] Hospitalist 2017)
2 or more criteria must be present for either
non severe or severe malnutrition
Note that the criteria differs related to the
presence of an acute or chronic illness
Acute Illness Chronic Illness
Energy Intake Non Severe: <75% for >7 days Non Severe: <75% for >1 month
Severe: <50% for >5 days Severe: <75% for >1 month
Weight Loss Non Severe: 1-2% over 1 week Non Severe: 5% over 1 month
5% over 1 month 7.5% over 3 months
7.5% over 3 months 10% over 6 months
1 year N/A 20% over 1 year
Severe: >2% over 1 week Severe: >5% over 1 month
>5% over 1 month >7.5% over 3 months
>7.5% over 3 months >10% over 6 months
1 year N/A >20% over 1 year
Body Fat Non Severe: Mild Decrease Non Severe: Mild Loss
Severe: Moderate Decrease Severe: Severe Loss
Muscle Mass Non Severe: Mild Decrease Non Severe: Mild Loss
Severe: Moderate Decrease Severe: Severe Loss
Fluid Accumulation Non Severe: Mild Accumulation Non Severe: Mild Accumulation
Severe: Moderate to severe Severe: Moderate to severe
accumulation accumulation
Reduced Personal Lines Appraiser Strength Non Severe: N/A Non Severe: N/A
Severe: Measurably reduced Severe: Measurably reduced
Additional criteria that can be used to Determine if Mild or Moderate Malnutrition (Merck Manual 2018)
Mild Moderate Severe
Albumin gm/dl <3.0 gm/dl <2.5 gm/dl <2.0 gm/dl
Pre Albumin mg/dl <15 gm/dl <10 mg/dl <5.0 mg/dl
BMI <18.5 <17 <16
Use of terms such as suspected, likely, concern for, or probable (associated with a specific diagnosis that is being evaluated, monitored, or treated as if it exists) are acceptable and can be coded in the inpatient setting, when documented at the
time of discharge.
Thank you,
Jackie Perry RN BSN
CDI Specialist
available via tiger text
Please use your independent medical judgment in providing your response.
--- NOTE | 2024-09-30 08:39 | PN.CDI ---
CDI
- -
CDI:
Physician Documentation Request
Admit Date: 09/28/24 17:37
Dear Doctor Caprice,
Clinical Indicators:
Patient admitted with acute HFrEF; PMH includes CKD III.
Lasix IV x 2 doses given.
Cr/GFR trend:
09/28/24 09/29/24
13:39 06:59
Creatinine 0.9 1.2 H
eGFR > 60.00 43.54
Please clarify which of the following accurately represents the patient's renal status:
TIFFANY on CKD III
CKD III only
Other
Criteria for TIFFANY*
1 Increase in serum creatinine by > or = to 0.3 mg/dL (> or = to 26.5 micromol/L) within 48 hours, OR
2 Increase in serum creatinine to > or = to 1.5 times baseline, which is known or presumed to have occurred within 7 days, OR
3 Urine volume < 0.5 nL/kg/hour for six hours
Stages of Chronic Kidney Disease*
Level Description GFR
G1 Normal or High >90
G2 Mildly decreased 60-89
G3a Mildly to moderately decreased 45-59
G3b Moderately to severely decreased 30-44
G4 Severely decreased 15-29
G5 Kidney failure <15
Use of terms such as suspected, likely, concern for, or probable (associated with a specific diagnosis that is being evaluated, monitored, or treated as if it exists) are acceptable and can be coded in the inpatient setting, when documented at the
time of discharge.
Thank you,
Jackie Perry RN BSN
CDI Specialist
available via tiger text
Please use your independent medical judgment in providing your response.
*Source: Kidney Disease: Improving Global Outcomes (KDIGO) 2012
[2024-09-30] MEDS: LASIX 20 MG IV (09:26)
[2024-09-30 11:55] LABS: Glucose - Point of Care 172 mg/dl (70-99)
--- NOTE | 2024-09-30 16:06 | CM ---
CM reviewed chart, received consult for medication pricing. CM spoke with patients pharmacy, per Pharmacist: Dapagliflozin 10mg once a day, $8 month, Empagliflozin 10 mg once a day, $15, Entresto 24/26 mg PO BID $15, update to Cardiology. Patient
previously declining VN. CM will continue to follow for all discharge planning needs.
Plan; home no needs, declining VN.
[2024-09-30 16:43] LABS: Glucose - Point of Care 201 mg/dl (70-99)
[2024-09-30] MEDS: NOVOLOG FLEXPEN-MODERATE RESISTANCE 3 UNITS SC (17:33)
[2024-09-30] MEDS: TOPROL XL 25 MG PO (17:33)
[2024-09-30] MEDS: ULTRAM 50 MG PO (19:38)
[2024-09-30 21:18] LABS: Glucose - Point of Care 264 mg/dl (70-99)
[2024-09-30] MEDS: LANTUS 0.2 UNITS SC (21:30)
[2024-10-01] VITALS (8 sets, daily range): BP systolic 96–113; BP diastolic 38–71; BMI 18.8
[2024-10-01 07:14] LABS: Hematocrit 27.8 % (37.0-47.0); Hemoglobin 9.1 g/dL (12.0-16.0); Mean Corp Hgb Conc. 32.7 g/dL (33.0-37.0); Mean Corpuscular Hgb 25.8 pg (27.0-31.0); Mean Corpuscular Volume 78.8 fL (81.0-99.0); Mean Platelet Volume 11.9 fL (7.4-10.4); Platelet Count 157 10^3/uL (130-400); Red Blood Cell Count 3.53 10^6/uL (4.20-5.40); Red Cell Dist. Width 17.4 % (11.5-14.5); White Blood Cell Count 5.4 10^3/uL (4.8-10.8)
--- NOTE | 2024-10-01 07:20 | W.PN.HOSP.TC ---
Today's Communication/Plan
-
Wean O2 supplementation as tolerated
Home oxygen assessment
diuresis as per Cardio
bowel regimen
pain control
Assessment / Plan
Assessment / Plan
Physical Exam
General: Comfortable and Conversant
HEENT: Anicteric, Moist mucous membranes
Respiratory: Bibasilar crackles on nasal cannula oxygen supplementation
Cardiac: S1/S2, Irregular Irregular
GI: Soft and Non Tender
Musculoskeletal: No Clubbing, No Cyanosis, +1 pitting edema bilateral lower extremities, LLE wound bandage clean dry intact
Neuro: AOx3
Psych: Calm
88F ASCVD afib CHF DM CKD Peritoneal Carcinomatosis on Chemo COPD hyperthyroidism here for Acute HFrEF
Acute HFrEF
-Consult Cardiology appreciated home Cardizem switched to Toprol-XL 25 mg daily for GDMT
-ECHO appreciated EF 30-35% MR mild/mod (EF declined from previous 55% 12/13/20)
-Cont Lasix IV diuresis as per Cardio
-Monitor Is&Os and Daily Weights
Acute Hypoxia 2/2 HF as above
-wean O2 supplementation as tolerated
-Home Oxygen assessment
Elevated Troponin, likely non-ischemic myocardial injury in setting of acute heart failure
-Chest pain free
-Troponin trended to peak 0.080 since trended down
Peritoneal Carcinomatosis
-Patient receives treatment at [facility]
-Last chemotherapy September 15, next due Oct 06
Peripheral Arterial Disease s/p Left Popliteal and Superficial Femoral Artery Stent
Coronary Artery Disease s/p Stent
-Continue Plavix
Lt medial ankle arterial wound
-pain control prn 50 mg Q6HPRN mod severe pain, pain well controlled at this time
Paroxysmal Atrial Fibrillation
-Continue Eliquis for anticoagulation
-Home Diltiazem switched to Metoprolol as above
Essential Hypertension
-Home Diltiazem switched to Metoprolol as above
-cont Lasix as per Cardio
Diabetes Mellitus, Type II
-Continue Lantus
-Sliding scale
-monitor and titrate insulin regimen as necessary.
CKD Stage III
-Monitor creatinine closely while on diuretics [correction to prior documentation]
-initial Cr 0.9 on admission likely outlier, baseline appears to be 1.0-1.2, CKDIII only, doubt TIFFANY
Microcytic Anemia
-Iron studies appreciated, iron level non-deficient though saturation is mildly low
-H&H stable, cont to monitor
COPD, no acute exacerbation
-Continue Spiriva
-Continue levalbuterol neb PRN
Hyperthyroidism
-Continue methimazole
GERD
-Continue Protonix
Constipation
bowel regimen senna colace miralax- hold if diarrhea
Mild Protein Calorie Malnutrition
-Nutrition eval appreciated
DVT Proph: Eliquis
PT/OT appreciated home health
Code Status: DNR
I spent a total of 45 minutes with the patient or on the floor. More than 50% of this time involved counseling and coordination of care.
Anticipated Discharge: 24 - 48 hours
Subjective/Interval History
-
Date of Service: October 01, 2024
Reports constipation. Otherwise pain well controlled at this time. Remains on oxygen supplementation though overall reports feeling well.
Objective Data
-
Labs:
Laboratory Results
10/01/24
07:00
WBC 5.4
Hgb 9.1 L
Hct 27.8 L
Plt Count 157
Sodium Pending
Potassium Pending
Chloride Pending
Carbon Dioxide Pending
BUN Pending
Creatinine Pending
Glucose Pending
Calcium Pending
Vital Signs:
Vital Signs
Temp Pulse Resp BP Pulse Ox
98.0 F 86 16 106/51 96
10/01/24 03:23 10/01/24 03:23 10/01/24 03:23 10/01/24 03:23 10/01/24 03:23
I&O
09/30/24 10/01/24 10/02/24
06:59 06:59 06:59
Intake Total 540 / 540 240 / 240
Balance 540 / 540 240 / 240
[2024-10-01 07:38] LABS: Glucose - Point of Care 92 mg/dl (70-99)
[2024-10-01 07:51] LABS: Blood Urea Nitrogen 36 mg/dl (7-17); Calcium 8.7 mg/dl (8.4-10.2); Carbon Dioxide 26 mmol/L (22-30); Chloride 98 mmol/L (98-107); Estimated Creatinine Clearance 31 ml/min; Glucose 84 mg/dl (70-99); Magnesium 2.2 mg/dl (1.6-2.3); Phosphorus 3.8 mg/dl (2.5-4.5); Potassium 4.5 mmol/L (3.5-5.1); Sodium 133 mmol/L (135-145); eGFR 48.33
[2024-10-01] MEDS: SPIRIVA RESPIMAT 2.5 MCG 2 PUFF INH (08:10)
[2024-10-01] MEDS: NOVOLOG FLEXPEN-MODERATE RESISTANCE SC (08:16)
[2024-10-01] MEDS: FEOSOL 325 MG PO (08:17)
[2024-10-01] MEDS: ELIQUIS 2.5 MG PO ×2 (08:17→21:09)
[2024-10-01] MEDS: HYDROPHOR 1 APPLIC TOPICAL (08:17)
[2024-10-01] MEDS: PROTONIX 40 MG PO (08:18)
[2024-10-01] MEDS: LASIX 20 MG IV ×2 (08:18→15:28)
[2024-10-01] MEDS: PLAVIX 75 MG PO (08:18)
[2024-10-01] MEDS: TAPAZOLE 5 MG PO (08:21)
--- NOTE | 2024-10-01 09:19 | W.PN.CD ---
Addendum entered and electronically signed by Beto Das MD 10/01/24 13:05:
88 yo female with PMH of paroxysmal A fib on eliquis, PAD, peritoneal carcinomatosis on palliative chemo is admitted with acute HFrEF. SOB and edema were noted, and are starting to improve. Exam with RRR, II/ systolic murmur at apex, 1+ LE edema.
New decline in LVEF to 30-35%. Conservative management, on palliative chemo. CCB changed to Toprol this admission: increase to 25mg bid. Farxiga added. Entresto use may be limited by BP: trend.
Increase lasix to 20mg IV bid, with close monitoring of labs and tele.
Original Note:
Today's Communication / Plan
-
Continue diuresis
Lower extremity compression
Impression / Plan
-
88 y/o female with PAF (prior ablations) on Eliquis, PAD, CAD with stenting, HFpEF, hypertension, LBBB, CKD, COPD, , some degree of HCM/outflow obstruction, statin intolerance, hx CVA, prior GIB, peritoneal carcinomatosis on chemotherapy
(carboplatin) who is here for SOB. She has also noted LE edema. BNP 16,300. She is admitted for CHF exacerbation.
Acute HFrEF (F 30-35%):
-Echocardiogram yesterday revealed a decline in LVEF, from 55% to 30-35%.
-Blood pressure is on the lower side, furosemide decreased from 40 mg to 20 mg, cautious diuresis given some HCM/outflow obstruction
-Diltiazem -> Toprol-XL 25 mg daily for GDMT.
-Case management to nunez [id number]
-Further GDMT limited by renal dysfunction and low blood pressure.
-She would benefit from compression, Tubigrip's ordered
-Conservative cardiac management overall; poor candidate for aggressive measures.
Paroxysmal atrial fibrillation
-Stable; remains in sinus rhythm, brief SVT
-Oral anticoagulation: Apixaban 2.5 mg twice daily
-Changed from diltiazem to Toprol-XL.
Ventricular triplet
-Increase beta nevin to BID dosing
Peritoneal carcinomatosis:
-Recently started OP chemo (outpatient notes reflect palliative treatment with carboplatin)
Aortic stenosis, mild, peak/mean gradients 12/6 mmHg
Mitral regurgitation, mild/moderate
CAD, remains stable without angina.
PAD, on clopidogrel per vascular surgery
Abnormal troponin, nonischemic myocardial injury in the setting of acute heart failure, without angina, peak troponin 0.080
CKD, chronic and stable, continue to monitor creatinine with acute diuresis
Diabetes, hemoglobin A1c 7.2%; management as per primary team.
COPD, per primary
Anemia, in the setting of chronic disease, per primary
SUBJECTIVE:
Shortness of breath improving.
DATA:
Transthoracic Echocardiogram (09/29/2024):
Left ventricular ejection fraction is 30-35%.
Septal hypokinesis.
Stage II diastolic dysfunction suggestive of abnormal relaxation and increased
filling pressures.
Mild/moderate mitral regurgitation.
Mild aortic stenosis.
Physical Exam
Vital Signs/Labs
Vital Signs
Temp Pulse Resp BP Pulse Ox
98.2 F 79 16 101/47 97
10/01/24 07:05 10/01/24 08:14 10/01/24 08:14 10/01/24 07:05 10/01/24 08:14
09/30/24 10/01/24 10/02/24
06:59 06:59 06:59
Actual Weight 56.472 kg 56.019 kg
10/01/24 07:00
10/01/24 07:00
PT 18.0 Sec (11.4-14.6) H 09/28/24 13:39
INR 1.46 09/28/24 13:39
APTT 44.0 Sec (23.4-35.0) H 09/28/24 13:39
Magnesium 2.2 mg/dl (1.6-2.3) 10/01/24 07:00
09/28/24
16:39
Jnm-H-Hnskstkpolf Pept [id number]
LAB Results
09/28/24 09/28/24 09/29/24
16:39 21:13 02:33
Troponin I 0.061 H* 0.074 H* 0.080 H*
09/29/24
11:38
Troponin I 0.063 H*
Physical Exam
Constitutional: No acute distress and Comfortable
EENT: Anicteric and Moist mucous membranes
Cardiovascular: Rhythm & rate is regular, Pedal edema present and S1S2 is normal
Respiratory: Respiratory effort normal and Lungs clear to auscul.
GI: Soft, Distention absent, Flat, Non tender and Normal bowel sounds
Neuro/Psych: Alert
Other: Skin (warm and dry)
Data Reviewed
-
Date of Service: October 01, 2024
Labs: Labs Reviewed by me
Old Records: Reviewed
[2024-10-01 11:40] LABS: Glucose - Point of Care 194 mg/dl (70-99)
[2024-10-01] MEDS: TOPROL XL 25 MG PO ×2 (13:01→21:10)
[2024-10-01] MEDS: NOVOLOG FLEXPEN-MODERATE RESISTANCE 1 UNITS SC (13:01)
[2024-10-01] MEDS: FARXIGA 10 MG PO (13:58)
[2024-10-01] MEDS: SENOKOT-S 1 TABLET PO ×2 (14:00→21:09)
[2024-10-01] MEDS: ULTRAM 50 MG PO (15:29)
[2024-10-01 16:49] LABS: Glucose - Point of Care 297 mg/dl (70-99)
[2024-10-01] MEDS: NOVOLOG FLEXPEN-MODERATE RESISTANCE 5 UNITS SC (18:10)
[2024-10-01] MEDS: MELATONIN 5 MG PO (21:05)
[2024-10-01] MEDS: LANTUS 0.2 UNITS SC (21:09)
[2024-10-01 21:10] LABS: Glucose - Point of Care 116 mg/dl (70-99)
[2024-10-02] VITALS (8 sets, daily range): BP systolic 80–110; BP diastolic 33–57; BMI 18.7
[2024-10-02] MEDS: ULTRAM 50 MG PO ×2 (00:02→20:40)
--- NOTE | 2024-10-02 07:50 | W.PN.HOSP.TC ---
Today's Communication/Plan
-
diuresis as per Cardio
bowel regimen
pain control
for abnormal automatic pressure readings, please confirm with manual reading
Likely discharge tomorrow home with home services when stable to switch to PO Lasix as per Cardio
Assessment / Plan
Assessment / Plan
Physical Exam
General: Comfortable and Conversant
HEENT: Anicteric, Moist mucous membranes
Respiratory: Bibasilar crackles on nasal cannula oxygen supplementation
Cardiac: S1/S2, Irregular Irregular
GI: Soft and Non Tender
Musculoskeletal: No Clubbing, No Cyanosis, +1 pitting edema bilateral lower extremities, LLE wound bandage clean dry intact
Neuro: AOx3
Psych: Calm
88F ASCVD afib CHF DM CKD Peritoneal Carcinomatosis on Chemo COPD hyperthyroidism here for Acute HFrEF
Acute HFrEF
-Consult Cardiology appreciated home Cardizem switched to Toprol-XL 25 mg daily for GDMT
-ECHO appreciated EF 30-35% MR mild/mod (EF declined from previous 55% 12/13/20)
-Cont Lasix IV diuresis as per Cardio
-Monitor Is&Os and Daily Weights
Acute Hypoxia 2/2 HF as above
-Home Oxygen assessment appreciated no needs
-weaned off oxygen supplementation, stable respiratory status on room air.
Elevated Troponin, likely non-ischemic myocardial injury in setting of acute heart failure
-Chest pain free
-Troponin trended to peak 0.080 since trended down
Peritoneal Carcinomatosis
-Patient receives treatment at [facility]
-Last chemotherapy September 15, next due Oct 06
Peripheral Arterial Disease s/p Left Popliteal and Superficial Femoral Artery Stent
Coronary Artery Disease s/p Stent
-Continue Plavix
Lt medial ankle arterial wound
-pain control prn 50 mg Q6HPRN mod severe pain, pain well controlled at this time
Paroxysmal Atrial Fibrillation
-Continue Eliquis for anticoagulation
-Home Diltiazem switched to Metoprolol as above
Essential Hypertension
-Home Diltiazem switched to Metoprolol as above
-cont Lasix as per Cardio
Diabetes Mellitus, Type II
-Continue Lantus
-Sliding scale
-monitor and titrate insulin regimen as necessary.
CKD Stage III
-Monitor creatinine closely while on diuretics [correction to prior documentation]
-initial Cr 0.9 on admission likely outlier, baseline appears to be 1.0-1.2, CKDIII only, doubt TIFFANY
Microcytic Anemia
-Iron studies appreciated, iron level non-deficient though saturation is mildly low
-H&H stable, cont to monitor
COPD, no acute exacerbation
-Continue Spiriva
-Continue levalbuterol neb PRN
Hyperthyroidism
-Continue methimazole
GERD
-Continue Protonix
Constipation
bowel regimen senna colace miralax- hold if diarrhea
once suppository with positive response 10/02/24
Mild Protein Calorie Malnutrition
-Nutrition eval appreciated
DVT Proph: Eliquis
PT/OT appreciated home health
Code Status: DNR
I spent a total of 45 minutes with the patient or on the floor. More than 50% of this time involved counseling and coordination of care.
Anticipated Discharge: Within 24 hours
Subjective/Interval History
-
Date of Service: October 02, 2024
No acute distress. Weaned off oxygen supplementation. Stable respiratory status on room air. Reports feeling well though constipated (resolved with once suppository).
Objective Data
-
Labs:
Laboratory Results
10/02/24
06:00
WBC Pending
Hgb Pending
Hct Pending
Plt Count Pending
Sodium Pending
Potassium Pending
Chloride Pending
Carbon Dioxide Pending
BUN Pending
Creatinine Pending
Glucose Pending
Calcium Pending
Vital Signs:
Vital Signs
Temp Pulse Resp BP Pulse Ox
98.3 F 81 16 98/34 93
10/02/24 03:00 10/02/24 03:00 10/02/24 03:00 10/02/24 03:00 10/02/24 03:00
I&O
10/01/24 10/02/24 10/03/24
06:59 06:59 06:59
Intake Total 750 / 750
Balance 750 / 750
[2024-10-02] MEDS: SPIRIVA RESPIMAT 2.5 MCG 2 PUFF INH (08:14)
[2024-10-02 08:28] LABS: Glucose - Point of Care 118 mg/dl (70-99)
[2024-10-02] MEDS: NOVOLOG FLEXPEN-MODERATE RESISTANCE SC (08:28)
[2024-10-02 08:29] LABS: Hematocrit 28.7 % (37.0-47.0); Hemoglobin 9.8 g/dL (12.0-16.0); Mean Corp Hgb Conc. 34.1 g/dL (33.0-37.0); Mean Corpuscular Hgb 25.7 pg (27.0-31.0); Mean Corpuscular Volume 75.3 fL (81.0-99.0); Mean Platelet Volume 12.2 fL (7.4-10.4); Platelet Count 156 10^3/uL (130-400); Red Blood Cell Count 3.81 10^6/uL (4.20-5.40); Red Cell Dist. Width 17.1 % (11.5-14.5); White Blood Cell Count 4.2 10^3/uL (4.8-10.8)
[2024-10-02] MEDS: HYDROPHOR 1 APPLIC TOPICAL (08:29)
[2024-10-02] MEDS: PROTONIX 40 MG PO (08:30)
[2024-10-02] MEDS: FEOSOL 325 MG PO (08:32)
[2024-10-02] MEDS: TAPAZOLE 5 MG PO (08:32)
[2024-10-02] MEDS: FARXIGA 10 MG PO (08:32)
[2024-10-02] MEDS: PLAVIX 75 MG PO (08:32)
[2024-10-02] MEDS: SENOKOT-S 1 TABLET PO (08:32)
[2024-10-02] MEDS: ELIQUIS 2.5 MG PO ×2 (08:32→19:48)
[2024-10-02] MEDS: MIRALAX 17 GRAMS PO (08:33)
[2024-10-02 10:05] LABS: Blood Urea Nitrogen 35 mg/dl (7-17); Calcium 8.4 mg/dl (8.4-10.2); Carbon Dioxide 30 mmol/L (22-30); Chloride 96 mmol/L (98-107); Estimated Creatinine Clearance 26 ml/min; Glucose 205 mg/dl (70-99); Magnesium 2.2 mg/dl (1.6-2.3); Phosphorus 3.5 mg/dl (2.5-4.5); Sodium 134 mmol/L (135-145); eGFR 39.55
[2024-10-02] MEDS: TOPROL XL 25 MG PO ×2 (10:38→19:48)
[2024-10-02] MEDS: LASIX 20 MG IV ×2 (10:38→16:34)
--- NOTE | 2024-10-02 10:56 | W.PN.CD ---
Today's Communication / Plan
-
continue IV lasix
LE compression
Impression / Plan
-
88 y/o female with PAF (prior ablations) on Eliquis, PAD, CAD with stenting, HFpEF, hypertension, LBBB, CKD, COPD, , some degree of HCM/outflow obstruction, statin intolerance, hx CVA, prior GIB, peritoneal carcinomatosis on chemotherapy
(carboplatin) who is here for SOB. She has also noted LE edema. BNP 16,300. She is admitted for CHF exacerbation.
Unspecified cardiomyopathy, Acute HFrEF (EF 30-35%):
-Echocardiogram this admission revealed a decline in LVEF, from 55% to 30-35%
-Conservative cardiac management overall; poor candidate for aggressive measures.
-Diltiazem -> Toprol-XL 25 mg bid for GDMT.
-Farxiga added
-lasix 20mg IV bid, with close monitoring of labs, weight, tele
-Further GDMT limited by renal dysfunction and low blood pressure.
-She would benefit from compression: Tubigrip's ordered as some of her edema may be lymphedema
Paroxysmal atrial fibrillation
-Stable; remains in sinus rhythm, brief SVT
-Oral anticoagulation: Apixaban 2.5 mg twice daily
-Changed from diltiazem to Toprol-XL.
Peritoneal carcinomatosis:
-Recently started OP chemo (outpatient notes reflect palliative treatment with carboplatin)
Aortic stenosis, mild, peak/mean gradients 12/6 mmHg
Mitral regurgitation, mild/moderate
CAD, remains stable without angina.
PAD, on clopidogrel per vascular surgery
Abnormal troponin, nonischemic myocardial injury in the setting of acute heart failure, without angina, peak troponin 0.080
CKD3b, chronic and stable, continue to monitor creatinine with acute diuresis
Diabetes, hemoglobin A1c 7.2%; management as per primary team.
COPD, per primary
Anemia, in the setting of chronic disease, per primary
SUBJECTIVE:
Shortness of breath improving.
DATA:
Transthoracic Echocardiogram (09/29/2024):
Left ventricular ejection fraction is 30-35%.
Septal hypokinesis.
Stage II diastolic dysfunction suggestive of abnormal relaxation and increased
filling pressures.
Mild/moderate mitral regurgitation.
Mild aortic stenosis.
Physical Exam
Vital Signs/Labs
Vital Signs
Temp Pulse Resp BP Pulse Ox
98.3 F 74 16 106/33 93
10/02/24 07:55 10/02/24 10:38 10/02/24 08:19 10/02/24 10:38 10/02/24 09:15
10/01/24 10/02/24 10/03/24
06:59 06:59 06:59
Actual Weight 56.019 kg 55.82 kg
10/02/24 07:50
10/02/24 09:40
PT 18.0 Sec (11.4-14.6) H 09/28/24 13:39
INR 1.46 09/28/24 13:39
APTT 44.0 Sec (23.4-35.0) H 09/28/24 13:39
Magnesium 2.2 mg/dl (1.6-2.3) 10/02/24 09:40
09/28/24
16:39
Uxf-F-Olwqkhyasew Pept [id number]
LAB Results
09/29/24
11:38
Troponin I 0.063 H*
Physical Exam
Constitutional: No acute distress
EENT: Moist mucous membranes
Cardiovascular: Rhythm & rate is regular, Pedal edema present, JVD present and Systolic murmur present
Respiratory: Respiratory effort normal
Neuro/Psych: AO x 3
Data Reviewed
-
Date of Service: October 02, 2024
EKG: Other (Tele: SR 70s)
Labs: Labs Reviewed by me
[2024-10-02 11:57] LABS: Glucose - Point of Care 182 mg/dl (70-99)
[2024-10-02] MEDS: NOVOLOG FLEXPEN-MODERATE RESISTANCE 1 UNITS SC ×2 (12:19→16:33)
[2024-10-02] MEDS: DULCOLAX 10 MG RECTAL (12:20)
--- NOTE | 2024-10-02 16:28 | CM ---
Patient seen at bedside.
Home 02 assessment by respiratory - no 02 needs
PT rec HH
Patient has had [facility] in past
Referral to [facility] placed in [facility]
Patient states has an appt with Dr. Mota, podiatry in [place] on 10/27 re: wound
Discussed transportation needs - agreeable to wheelchair van-understands there will be a cost
PLAN: Home, VN
[2024-10-02 16:33] LABS: Glucose - Point of Care 180 mg/dl (70-99)
[2024-10-02] MEDS: SENOKOT-S PO ×2 (19:48→20:09)
[2024-10-02 21:24] LABS: Glucose - Point of Care 195 mg/dl (70-99)
[2024-10-02] MEDS: LANTUS 0.2 UNITS SC (21:53)
[2024-10-02] MEDS: MELATONIN 5 MG PO (21:54)
[2024-10-03 03:50] VITALS: BP 116/44
[2024-10-03 06:00] VITALS: BMI 18.1
[2024-10-03] MEDS: SPIRIVA RESPIMAT 2.5 MCG 2 PUFF INH (07:39)
[2024-10-03 08:05] VITALS: BP 98/41
[2024-10-03 08:14] LABS: Glucose - Point of Care 78 mg/dl (70-99)
[2024-10-03] MEDS: NOVOLOG FLEXPEN-MODERATE RESISTANCE SC ×3 (08:17→16:46)
[2024-10-03 08:39] LABS: Hematocrit 31.3 % (37.0-47.0); Hemoglobin 10.1 g/dL (12.0-16.0); Mean Corp Hgb Conc. 32.3 g/dL (33.0-37.0); Mean Corpuscular Hgb 25.4 pg (27.0-31.0); Mean Corpuscular Volume 78.6 fL (81.0-99.0); Mean Platelet Volume 12.4 fL (7.4-10.4); Platelet Count 163 10^3/uL (130-400); Red Blood Cell Count 3.98 10^6/uL (4.20-5.40); Red Cell Dist. Width 17.2 % (11.5-14.5); White Blood Cell Count 4.6 10^3/uL (4.8-10.8)
[2024-10-03] MEDS: FARXIGA 10 MG PO (09:03)
[2024-10-03] MEDS: FEOSOL 325 MG PO (09:03)
[2024-10-03] MEDS: TOPROL XL PO (09:03)
[2024-10-03] MEDS: TAPAZOLE 5 MG PO (09:03)
[2024-10-03] MEDS: SENOKOT-S PO (09:04)
[2024-10-03] MEDS: PLAVIX 75 MG PO (09:04)
[2024-10-03] MEDS: PROTONIX 40 MG PO (09:04)
[2024-10-03] MEDS: MIRALAX PO (09:04)
[2024-10-03] MEDS: LASIX IV (09:04)
[2024-10-03] MEDS: ELIQUIS 2.5 MG PO (09:05)
[2024-10-03] MEDS: HYDROPHOR 1 APPLIC TOPICAL (09:07)
[2024-10-03 09:08] LABS: Blood Urea Nitrogen 35 mg/dl (7-17); Calcium 8.7 mg/dl (8.4-10.2); Carbon Dioxide 28 mmol/L (22-30); Chloride 96 mmol/L (98-107); Estimated Creatinine Clearance 28 ml/min; Glucose 72 mg/dl (70-99); Magnesium 2.2 mg/dl (1.6-2.3); Phosphorus 3.3 mg/dl (2.5-4.5); Potassium 4.2 mmol/L (3.5-5.1); Sodium 134 mmol/L (135-145); eGFR 43.54
--- NOTE | 2024-10-03 09:27 | W.PN.CD ---
Today's Communication / Plan
-
Stop IV Lasix, start PO Lasix 40 mg one time a day
As outpatient will see if we can add RAAS-I (ARNI vs ARB vs JENNIFER-I) and MRA (Aldactone vs eplerenone)
Ok for home from our perspective
Impression / Plan
-
88 y/o female with PAF (prior ablations) on Eliquis, PAD, CAD with stenting, HFpEF, hypertension, LBBB, CKD, COPD, , some degree of HCM/outflow obstruction, statin intolerance, hx CVA, prior GIB, peritoneal carcinomatosis on chemotherapy
(carboplatin) who is here for SOB. She has also noted LE edema. BNP 16,300. She is admitted for CHF exacerbation.
Acute HFrEF (EF 30-35%):
-Early weight here 55.9 kg and today (10/03/2024) 54 kg. Weight goal may change as her cancer progresses
-Echo with decline in LVEF, 55% to 30-35%
-Conservative cardiac management overall; poor candidate for aggressive measures.
-Diltiazem -> Toprol-XL 25 mg bid for GDMT.
-Farxiga added
-lasix 20mg IV bid, with close monitoring of labs, weight, tele
-Further GDMT limited by renal dysfunction and low blood pressure.
-She would benefit from compression: Tubigrip's ordered as some of her edema may be lymphedema
Cardiomyopathy, etiology uncertain
-Will pursue med rx for HFrEF w/o additional w/u
Paroxysmal atrial fibrillation
-Prior AFib ablations
-Stable; remains in sinus rhythm, brief SVT
-Oral anticoagulation: Apixaban 2.5 mg twice daily
-Changed from diltiazem to Toprol-XL.
Peritoneal carcinomatosis:
-Recently started OP chemo (outpatient notes reflect palliative treatment with carboplatin)
Aortic stenosis, mild, peak/mean gradients 12/6 mmHg
Mitral regurgitation, mild/moderate
CAD, remains stable without angina.
PAD, on clopidogrel per vascular surgery
Abnormal troponin, nonischemic myocardial injury in the setting of acute heart failure, without angina, peak troponin 0.080
CKD3b, chronic and stable, continue to monitor creatinine with acute diuresis
Diabetes, hemoglobin A1c 7.2%; management as per primary team.
COPD, per primary
Anemia, in the setting of chronic disease, per primary
SUBJECTIVE:
Shortness of breath improving.
DATA:
Transthoracic Echocardiogram (09/29/2024):
Left ventricular ejection fraction is 30-35%.
Septal hypokinesis.
Stage II diastolic dysfunction suggestive of abnormal relaxation and increased
filling pressures.
Mild/moderate mitral regurgitation.
Mild aortic stenosis.
Physical Exam
Vital Signs/Labs
Vital Signs
Temp Pulse Resp BP Pulse Ox
98.8 F 80 18 98/41 96
10/03/24 08:05 10/03/24 09:04 10/03/24 08:05 10/03/24 09:04 10/03/24 08:05
10/02/24 10/03/24 10/04/24
06:59 06:59 06:59
Actual Weight 55.82 kg 54.006 kg
10/03/24 07:37
10/03/24 07:37
PT 18.0 Sec (11.4-14.6) H 09/28/24 13:39
INR 1.46 09/28/24 13:39
APTT 44.0 Sec (23.4-35.0) H 09/28/24 13:39
Magnesium 2.2 mg/dl (1.6-2.3) 10/03/24 07:37
09/28/24
16:39
Qqd-D-Arkwcqgrhli Pept [id number]
Physical Exam
Constitutional: No acute distress
EENT: Anicteric
Cardiovascular: Rhythm & rate is regular and Pedal edema present (L>R, likely some edema is NOT from heart failure)
Respiratory: Respiratory effort normal and Lungs clear to auscul.
GI: Soft and Distention absent
Neuro/Psych: AO x 3
Data Reviewed
-
Date of Service: October 03, 2024
--- NOTE | 2024-10-03 09:42 | W.PN.HOSP.TC ---
Today's Communication/Plan
-
Discharge today
Assessment / Plan
Assessment / Plan
Physical Exam
General: Comfortable and Conversant
HEENT: Moist mucous membranes
Respiratory: Clear to Auscultation Bilaterally. On room air.
Cardiac: S1/S2, Regular Rhythm
GI: Soft and Non Tender. Positive bowel sounds.
Musculoskeletal: No Cyanosis, +1 pitting edema bilateral lower extremities, LLE wound bandage clean dry intact
Neuro: AOx3
Psych: Calm
Assessment/Plan
88F ASCVD afib CHF DM CKD Peritoneal Carcinomatosis on Chemo COPD hyperthyroidism here for Acute HFrEF
Acute HFrEF
-Cardiology recommendations appreciated home Cardizem switched to Toprol-XL 25 mg BID for GDMT
-ECHO appreciated EF 30-35% MR mild/mod (EF declined from previous 55% 12/13/20)
-Transition IV Lasix to PO Lasix 40 mg one time a day (starting on 10/04/23)
-Farxiga added
-Monitor Is&Os and Daily Weights
Acute Hypoxia 2/2 HF as above
-Home Oxygen assessment appreciated no needs
-weaned off oxygen supplementation, stable respiratory status on room air.
Elevated Troponin, likely non-ischemic myocardial injury in setting of acute heart failure
-Chest pain free
-Troponin trended to peak 0.080 since trended down
Peritoneal Carcinomatosis
-Patient receives treatment at [facility]
-Last chemotherapy September 15, next due Oct 06
Peripheral Arterial Disease s/p Left Popliteal and Superficial Femoral Artery Stent
Coronary Artery Disease s/p Stent
-Continue Plavix
Lt medial ankle arterial wound
-pain control prn 50 mg Q6HPRN mod severe pain, pain well controlled at this time
Paroxysmal Atrial Fibrillation status post prior ablation
-Continue Eliquis 2.5 mg BID for anticoagulation
-Home Diltiazem switched to Metoprolol as above
Essential Hypertension
-Home Diltiazem switched to Metoprolol as above
-cont Lasix as per Cardio
Diabetes Mellitus, Type II
-Continue Lantus
-Sliding scale
-monitor and titrate insulin regimen as necessary.
CKD Stage III
-Monitor creatinine closely while on diuretics [correction to prior documentation]
-initial Cr 0.9 on admission likely outlier, baseline appears to be 1.0-1.2, CKDIII only, doubt TIFFANY
Microcytic Anemia
-Iron studies appreciated, iron level non-deficient though saturation is mildly low
-H&H stable, cont to monitor
COPD, no acute exacerbation
-Continue Spiriva
-Continue levalbuterol neb PRN
Hyperthyroidism
-Continue methimazole
GERD
-Continue Protonix
Constipation
bowel regimen senna colace miralax- hold if diarrhea
once suppository with positive response 10/02/24
Mild Protein Calorie Malnutrition
-Nutrition eval appreciated
DVT Proph: Eliquis
PT/OT appreciated home health
Code Status: DNR
More than 30 minutes spent in discharge including
Final examination of the patient
Summarizing hospital stay
Instructions for continuing care to all relevant caregivers
Preparation of discharge records, prescriptions, and referral forms
Total time spent (in minutes): 37
Anticipated Discharge: Today
Subjective/Interval History
-
Date of Service: October 03, 2024
Patient was seen and examined. She denied any chest pain, shortness of breath or any other symptoms or complaints.
Objective Data
-
Labs:
Laboratory Results
10/03/24
07:37
WBC 4.6 L
Hgb 10.1 L
Hct 31.3 L
Plt Count 163
Sodium 134 L
Potassium 4.2
Chloride 96 L
Carbon Dioxide 28
BUN 35 H
Creatinine 1.2 H
Glucose 72
Calcium 8.7
Vital Signs:
Vital Signs
Temp Pulse Resp BP Pulse Ox
98.8 F 80 18 98/41 96
10/03/24 08:05 10/03/24 09:04 10/03/24 08:05 10/03/24 09:04 10/03/24 08:05
I&O
10/02/24 10/03/24 10/04/24
06:59 06:59 06:59
Intake Total 750 / 750 240 / 240
Balance 750 / 750 240 / 240
[2024-10-03] MEDS: LASIX 20 MG IV (10:34)
[2024-10-03 11:18] VITALS: BP 108/44
--- NOTE | 2024-10-03 11:39 | CM ---
Addendum entered by Ketty Grant 10/03/24 14:53:
Patient scheduled for 5:30 p.m. WC Van transport, number and cost provided to patient.
Original Note:
CM reviewed chart, patient seen bedside. Patient agreeable to home with [facility] services. IMM verbally reviewed, provided with copy, placed in chart. Patient reports she will need WC Van home, understands there is a cost. CM will continue to
follow for all discharge planning needs.
Plan; home, WC van transport, [facility]
[2024-10-03 12:07] LABS: Glucose - Point of Care 128 mg/dl (70-99)
[2024-10-03] MEDS: TOPROL XL 25 MG PO (12:25)
[2024-10-03 15:53] VITALS: BP 115/45
[2024-10-03 16:41] LABS: Glucose - Point of Care 101 mg/dl (70-99)
[2024-10-03] MEDS: ULTRAM 50 MG PO (16:55)
--- NOTE | 2024-10-03 18:00 | PTCARENOTE ---
Went over discharge instructions with patient. Removed IV and Telemetry pack. Answered any questions that patient had.
When transport arrived, patient tearful about discharge. Rectified concerns, patient still wants to go home. Assisted with wheel chair transport.
== END 2024-10-03 18:00 | disposition home health service (06) | DRG 291 ==
LOC: 4 WEST ACU 17:37
PROVIDERS: Internal Medicine; Physician Assistant Medical; ADMITTING PHYSICIAN Internal Medicine; ATTENDING PHYSICIAN Hospitalist; EMERGENCY PHYSICIAN Student in an Organized Health Care Education/Training Program; FAMILY PHYSICIAN Internal Medicine; OTHER PHYSICIAN Internal Medicine
DX: I13.0 Hypertensive heart and chronic kidney disease with heart failure and stage 1 through stage 4 chronic kidney disease, or unspecified chronic kidney disease (principal); I50.21 Acute systolic (congestive) heart failure; C78.6 Secondary malignant neoplasm of retroperitoneum and peritoneum; E44.1 Mild protein-calorie malnutrition; Z68.1 Body mass index [BMI] 19.9 or less, adult; N18.32 Chronic kidney disease, stage 3b; E11.22 Type 2 diabetes mellitus with diabetic chronic kidney disease; R09.02 Hypoxemia; I5A Non-ischemic myocardial injury (non-traumatic); E11.51 Type 2 diabetes mellitus with diabetic peripheral angiopathy without gangrene; Z79.4 Long term (current) use of insulin; Z95.5 Presence of coronary angioplasty implant and graft; I25.10 Atherosclerotic heart disease of native coronary artery without angina pectoris; Z79.02 Long term (current) use of antithrombotics/antiplatelets; I48.0 Paroxysmal atrial fibrillation; D50.9 Iron deficiency anemia, unspecified; J44.9 Chronic obstructive pulmonary disease, unspecified; E05.90 Thyrotoxicosis, unspecified without thyrotoxic crisis or storm; K21.9 Gastro-esophageal reflux disease without esophagitis; Z66 Do not resuscitate; Z11.52 Encounter for screening for COVID-19; I42.2 Other hypertrophic cardiomyopathy; F32.A Depression, unspecified; F41.9 Anxiety disorder, unspecified; Z87.891 Personal history of nicotine dependence; Z88.1 Allergy status to other antibiotic agents; Z88.8 Allergy status to other drugs, medicaments and biological substances; Z79.01 Long term (current) use of anticoagulants; I44.7 Left bundle-branch block, unspecified; Z86.73 Personal history of transient ischemic attack (TIA), and cerebral infarction without residual deficits; Z79.899 Other long term (current) drug therapy; E78.00 Pure hypercholesterolemia, unspecified; I25.2 Old myocardial infarction
CPT/HCPCS: 71046; 80048; 80053; 82607; 82728; 82746; 82962; 83036; 83540; 83550; 83735; 83880; 84100; 84145; 84443; 84484; 85025; 85027; 85610; 85730; 87502; 87811; 93005; 93306; 94640; 96374; 96375; 97116; 97163; 97166; 97530; 99285

== ENCOUNTER 2024-10-18 22:07 | Inpatient (IN) | payer MEDICARE, SELFPAY ==
[2024-10-18] VITALS (10 sets, daily range): BP systolic 82–136; BP diastolic 45–106; BMI 17.1
[2024-10-18 20:25] LABS: Hemoglobin 10.6 g/dL (12.0-16.0); Mean Corp Hgb Conc. 32.1 g/dL (33.0-37.0); Mean Corpuscular Hgb 25.1 pg (27.0-31.0); Mean Corpuscular Volume 78.2 fL (81.0-99.0); Platelet Count 101 10^3/uL (130-400); Red Blood Cell Count 4.22 10^6/uL (4.20-5.40); Red Cell Dist. Width 17.9 % (11.5-14.5); White Blood Cell Count 35.7 10^3/uL (4.8-10.8)
--- NOTE | 2024-10-18 20:30 | ED.GENMED ---
History of Present Illness
General
Chief Complaint: Skin Problem
Source: patient
Exam Limitations: none
Time Seen by Provider: 10/18/24 20:11
Nursing documentation reviewed up to this point in time: agreed with
History of Present Illness
History of Present Illness:
Patient presents to ED for an evaluation secondary to worsening left lower leg pain over the past 3 days, along with decreased appetite. Patient denies trauma. Patient states that she was told by her doctors that there is nothing that can be done
about her left leg pain, which has been ongoing for over 1 year. Denies fever. However, upon arrival, patient is found to be hypothermic. Denies nausea or vomiting. Denies diarrhea. Denies coughing. Denies shortness of breath. Denies
headache.
Past History
Past History
ED Past Medical History: Arrthythmia (afib), CAD, CHF, GERD, HTN, Hypercholesterolemia, IDDM, Other (peripheral vascular disease, hypertrophic cardiomyopathy,) and Other (Paroxysmal atrial fib, coronary disease status post SC status post stents, and
diabetes, hypertension, hypercholesterolemia)
ED Past Surgical History: Cardiac (Cardiac ablation) and Gynecological (LEANN/BSO)
Social History
Tobacco: Former smoker
Alcohol: None
Personal:
Living: alone
Employment: Retired
Family History
Family History: Diabetes and CAD
Review of Systems
Review of Systems
Allergies reviewed?: Yes
All Other Systems: ROS reviewed and negative except as documented in HPI and ROS
Constitutional: Reports no symptoms; Denies fever
EENT: Reports no symptoms
Respiratory: Reports no symptoms; Denies cough or trouble breathing
Cardiac: Reports no symptoms
ABD/GI: Reports no symptoms; Denies vomiting or diarrhea
Musculoskeletal: Reports other (Leg pain)
Skin: Reports no symptoms
Neurological: Reports no symptoms
Phy Exam
Physical Exam
Physical Exam:
Physical Exam
General: mild distress. hypothermic. chronically ill appearing.
Head: nc/at. eomi
Neck: supple. no meningeal signs.
Heart: s1/s2 regular rate and rhythm, no murmur.
Lungs: no acute respiratory distress. clear bilaterally
Abdomen: normal bowel sounds. not tender.
Neuro: alert and oriented x 3. no focal neurological deficits. Somnolent but easily arousable.
Skin: Nondraining chronically appearing ulcer noted over left medial malleolus. Purplish discoloration noted left lower leg, including foot.
Psychiatric: well kept. interactive and cooperative
Extremities: b/l edema.
Course
Orders/Labs/Results
Orders:
Orders
10/18/24 20:06
B-Hydroxybutyrate Urgent
Comment: ADD ON
Basic Metabolic Panel Urgent
Complete Blood Count/With Diff Urgent
TSH Reflex To Free T4 Urgent
Comment: ADD ON
10/18/24 20:21
0.9% Sodium Chloride 500 ml [Nss] 500 ml IV BOLUS
10/18/24 20:27
Piperacillin/Tazo 3.375 Gram [Zosyn] 3.375 gram in 50 ml IV NOW
10/18/24 20:33
Vancomycin [Vancocin] 1,500 mg 0.9% Sodium Chloride 500 ml [Nss] 500 ml IV NOW
10/18/24 20:37
CR Chest Portable - 1 View Urgent
Comment:
Reason For Exam: hypothermia w recent pna
Reason Study Needs to be Portable: Patient Unstable
10/18/24 20:50
Comprehensive Metabolic Panel Urgent
Lactate Level [Lactic Acid] Urgent
Phosphorus Urgent
Comment: ADD ON
Blood Culture Q30M
CL Source: Blood/Venous
Specimen Description:
Blood Culture Q30M
CL Source: Blood/Venous
Specimen Description:
10/18/24 21:07
COVID-19 Antigen Urgent
Source: Nasal Swab
Urinalysis Reflex To Culture Urgent
Date Specimen was Collected: 10/18/24
Time Specimen was Collected: 21:03
Urine Microscopic Reflex Cult Urgent
Influenza A+B Rapid Molecular Urgent
CL Source: Nasal Swab
Specimen Description:
10/18/24 21:19
0.9% Sodium Chloride 500 ml [Nss] 500 ml IV BOLUS
10/18/24 21:23
Insulin Human Regular [Novolin R] 5 units IV NOW STA
10/18/24 21:30
Reg Insulin 100 Units/100 ml [Novolin R Insulin Infusion] 100 units in 100 ml IV ORDERED RATE
10/18/24 21:37
Admit/Transfer Patient As Directed
Co-Sign Provider:
Level of Care: Inpatient admission
Assign to:: ICU
Physician / Group: Evangelist
Diagnosis: Sepsis, DKA
Reason for Hospitalization: Sepsis, DKA
Expected length of stay greater than two midnights?: Yes
ELOS- Estimated Length of Stay in days: 5
I certify the patient meets the requirements for IP care: Yes
PRN Pain Medication Management As Directed
May give lesser potent ordered pain med per pt: Yes
preference::
Protocol:: Medication orders for pain may be administered in a
manner that supports deferring to patient preference
when the pt is:
- Requesting an ordered lesser potent pain medication.
Least to most potent pain medications are defined
as: acetaminophen < NSAID < tramadol < opioids
(morphine, oxycodone, hydromorphone).
- Requesting a lesser dose of the same medication IF
ORDERED.
- Requesting a less intrusive route of administration
if both routes are prescribed by the provider (PO <
IV).
10/18/24 21:38
Code Status As Directed
Resuscitation Status: Do not resuscitate
Reached after discussion with pt or family/Healthcare POA: Yes
10/18/24 21:39
DNR Bracelet Application ONCE
10/18/24 21:47
CT Abd/pel Without Iv Or Oral Urgent
Comment:
Reason For Exam: Sepsis, Abnormal LFTs
10/18/24 21:48
Venous Blood Gas Urgent
%Oxygen/Room Air: 92
10/18/24 21:49
EKG [Electrocardiogram (*1)] Urgent
Reason for Study: Other
Other Reason for Exam: Hyperkalemia
10/18/24 22:00
HYDROmorphone [Dilaudid] 0.5 mg IV Q4HPRN PRN
10/18/24 22:58
0.9% Sodium Chloride 1000 ml [Nss] 1,000 ml IV 125 mls/hr
Acetaminophen [Tylenol] 650 mg PO Q4HPRN PRN
Piperacillin/Tazo 2.25 Gram [Zosyn] 2.25 grams in 50 ml IV Q8H
Reg Insulin 100 Units/100 ml [Novolin R Insulin Infusion] 100 units in 100 ml IV PER PROTOCOL
Currently infusing. Continue current dose and titrate:: Yes
VANCOMYCIN Pharmacy to Dose [VANCOCIN Pharmacy to Dose] 1 each Pharmacy To Prepare [Call Pharmacy To Prepare] 0 ml IV PER PROTOCOL
10/18/24 22:58
Activity As Directed
Activity Level: Ambulate
With Assistance
Lee Catheter [Catheter- Indwelling] As Directed
Reason for insertion: I&O's Critical Care
Assess insertion reason daily.Remove if no longer applicable: Yes
Notify MD As Directed
Notify physician if: Nurse to contact provider when glucose reaches 250 to obtain orders for D5 0.45 NaCl
Vital Signs As Directed
Frequency: Per unit guidelines
Oxygen Therapy [O2 Therapy] [RESP] Routine
Titrate/Wean O2 to maintain O2 sat greater than (%): 94
10/18/24 23:46
Basic Metabolic Panel Q4H
Troponin I Q6H
10/19/24 01:22
Basic Metabolic Panel Q4H
10/19/24 04:29
Potassium Q2
Comment: report result to provider till Potassium >/= 3.3 to 5.3 mEq/L
Troponin I Q6H
10/19/24 06:00
EKG [Electrocardiogram (*1)] IN AM
Reason for Study: Chest Pain
10/19/24 06:01
Complete Blood Count/No Diff IN AM
Magnesium IN AM
Phosphorus IN AM
10/19/24 08:00
Apixaban [Eliquis] 2.5 mg PO BID
Clopidogrel Bisulfate [Plavix] 75 mg PO DAILY
Methimazole [Tapazole] 5 mg PO DAILY
Metoprolol Xl [Toprol Xl] 25 mg PO BID
Pantoprazole [Protonix IV] 40 mg IV DAILY
10/19/24 09:08
Basic Metabolic Panel Q4H
Abnormal Lab Results
10/18/24 10/18/24 10/18/24
20:06 20:50 21:07
WBC 35.7 H 10^3/uL
(4.8-10.8)
Hgb 10.6 L g/dL
(12.0-16.0)
Hct 33.0 L %
(37.0-47.0)
MCV 78.2 L fL
(81.0-99.0)
MCH 25.1 L pg
(27.0-31.0)
MCHC 32.1 L g/dL
(33.0-37.0)
RDW 17.9 H %
(11.5-14.5)
Plt Count 101 L 10^3/uL
(130-400)
Abs Immat Gran (auto) 0.9 H 10^3/uL
(0-0.05)
Absolute Neuts (auto) 31.7 H 10^3/uL
(1.4-6.5)
Absolute Lymphs (auto) 0.9 L 10^3/uL
(1.2-3.4)
Absolute Monos (auto) 2.1 H 10^3/uL
(0.1-0.6)
Immature Gran % 2.6 H %
(0-0.5)
Neutrophils % 89.0 H %
(42.2-75.2)
Lymphocytes % 2.4 L %
(20.5-51.1)
VBG pH
VBG pCO2
VBG HCO3
Sodium 130 L mmol/L 130 L mmol/L
(135-145) (135-145)
Potassium 6.5 H* mmol/L
(3.5-5.1)
Chloride 93 L mmol/L 95 L mmol/L
(98-107) (98-107)
Carbon Dioxide 18 L mmol/L 18 L mmol/L
(22-30) (22-30)
BUN 82 H mg/dl 83 H mg/dl
(7-17) (7-17)
Creatinine 1.8 H mg/dL 1.8 H mg/dL
(0.6-1.0) (0.6-1.0)
Glucose 720 H* mg/dl 726 H* mg/dl
(70-99) (70-99)
Lactic Acid 3.1 H mmol/L
(0.7-2.0)
Phosphorus 5.2 H mg/dl
(2.5-4.5)
Total Bilirubin 2.6 H mg/dl
(0.2-1.3)
AST 53 H U/L
(14-36)
Alkaline Phosphatase 140 H U/L
(38-126)
Total Protein 5.2 L g/dl
(6.3-8.2)
Albumin 3.3 L g/dl
(3.5-5.0)
Urine Ketones 1+ A
(Negative)
Urine Glucose 4+ A
(Negative)
Urine Albumin (Reflex) 1+ A
(Neg - Trace)
B-Hydroxybutyrate 2.21 H mmol/L
(0.02-0.27)
POC Glucose
10/18/24 10/18/24
21:48 21:51
WBC
Hgb
Hct
MCV
MCH
MCHC
RDW
Plt Count
Abs Immat Gran (auto)
Absolute Neuts (auto)
Absolute Lymphs (auto)
Absolute Monos (auto)
Immature Gran %
Neutrophils %
Lymphocytes %
VBG pH 7.24 L
(7.32-7.43)
VBG pCO2 49 H mmHg
(35-48)
VBG HCO3 21.0 L mmol/L
(22-27)
Sodium
Potassium
Chloride
Carbon Dioxide
BUN
Creatinine
Glucose
Lactic Acid
Phosphorus
Total Bilirubin
AST
Alkaline Phosphatase
Total Protein
Albumin
Urine Ketones
Urine Glucose
Urine Albumin (Reflex)
B-Hydroxybutyrate
POC Glucose > 600 H* mg/dl
(70-99)
10/18/24 20:06
10/18/24 20:50
Vital Signs
Initial and Last Documented VS:
Initial Vital Signs
BP
111/47
10/18/24 19:56
Last Documented Vital Signs
Temp Pulse Resp BP Pulse Ox
99.1 F 87 20 92/54 62
10/19/24 13:45 10/19/24 14:45 10/19/24 14:45 10/19/24 14:23 10/19/24 14:45
MDM/Problems Addressed
MDM/Problems Addressed:
History and exam concerning for nonhealing left lower leg wound along with concern for potential development of cellulitis versus worsening underlying PAD. However, in light of patient's significant leukocytosis, hypothermia, and mental status
change, there is clinical concern for potential sepsis. As such, will be started on broad-spectrum antibiotics and be admitted.
Blood culture pending.
Blood sugar noted with anion gap, concerning for DKA. Patient will be started on insulin drip.
Critical care statement: A total of 40 minutes of critical care time was provided for this patient. This includes management of unstable vital signs, evaluation of the patient at bedside, reviewing the patient's pertinent medical records, review of
old EKGs and review of pertinent medical records. This time with separate from time utilized to perform the aforementioned documented procedures
*Critical Care Note
Total Time (30-74mins, 75-104mins- exclusive of procedures): 40 min
ED Attending Note
-
Portions of this chart may have been created with voice recognition software.� Occasional wrong word or��sound alike� substitutions may have occurred due to the inherent limitations of voice recognition software.
Discharge Plan
Departure
Patient Disposition: Admit
Date of Disposition: 10/18/24
Time of Disposition: 20:40
Admit to: Telemetry
Presentation/result/management discussed w/ accepting MD/DO: Hospitalist
Discharge Problem:
Sepsis, Cellulitis of left leg, Hyperglycemia
Interventions
Interventions:
*Risk Screen - Suicide Last Done: 10/18/24 19:51
*General Assessment Last Done: 10/18/24 19:51
*Neglect/Abuse Screening Last Done: 10/18/24 19:51
ED- Fall Risk Assessment Last Done: 10/18/24 19:51
*ED COVID-19 Vaccine History Last Done: 10/18/24 19:51
*Nursing Disposition Last Done: 10/18/24 23:03
ED-Skin Assessment Last Done: 10/18/24 20:03
Discharge Date and Time
Discharge Date/Time: 10/18/24 23:04
[2024-10-18 20:43] LABS: Blood Urea Nitrogen 82 mg/dl (7-17); Calcium 9.2 mg/dl (8.4-10.2); Carbon Dioxide 18 mmol/L (22-30); Chloride 93 mmol/L (98-107); Estimated Creatinine Clearance 17 ml/min; Sodium 130 mmol/L (135-145); eGFR 26.77
[2024-10-18 20:52] LABS: Glucose 720 mg/dl (70-99)
[2024-10-18] MEDS: NSS 500 IV ×2 (20:52→21:46)
[2024-10-18] MEDS: ZOSYN 50 IV (20:52)
[2024-10-18 20:56] LABS: % Basophils 0.2 % (0-2); % Immature Granulocytes 2.6 % (0-0.5); % Lymphocytes 2.4 % (20.5-51.1); % Monocytes 5.8 % (1.7-9.3); Absolute Basophils 0.1 10^3/uL (0-0.2); Absolute Immature Granulocytes 0.9 10^3/uL (0-0.05); Absolute Lymphocytes 0.9 10^3/uL (1.2-3.4); Absolute Monocytes 2.1 10^3/uL (0.1-0.6); Absolute Neutrophils 31.7 10^3/uL (1.4-6.5); Nucleated Red Blood Cells % 0 %
[2024-10-18 21:20] LABS: Lactic Acid 3.1 mmol/L (0.7-2.0)
--- NOTE | 2024-10-18 21:27 | PHANOTE ---
med rec tech(10/18/24)-Unable to interview patient on medications, per EMS and nurses patient lives alone. Unable to verify compliance, compiled home med list through medical record from last visit on 10/03/24, [facility] med list from 10/18/24, and pharmacy
records from [facility].
[2024-10-18 21:34] LABS: COVID-19 Antigen Negative (Negative)
[2024-10-18] MEDS: VANCOCIN 530 MG IV (21:42)
[2024-10-18 21:43] LABS: ALT (SGPT) 32 U/L (0-35); AST (SGOT) 53 U/L (14-36); Albumin 3.3 g/dl (3.5-5.0); Alkaline Phosphatase 140 U/L (38-126); Blood Urea Nitrogen 83 mg/dl (7-17); Calcium 9.2 mg/dl (8.4-10.2); Carbon Dioxide 18 mmol/L (22-30); Chloride 95 mmol/L (98-107); Estimated Creatinine Clearance 17 ml/min; Glucose 726 mg/dl (70-99); Potassium 6.5 mmol/L (3.5-5.1); Sodium 130 mmol/L (135-145); Total Bilirubin 2.6 mg/dl (0.2-1.3); Total Protein 5.2 g/dl (6.3-8.2); eGFR 26.77
[2024-10-18 21:44] LABS: Urine Albumin 1+ (Neg - Trace); Urine Bilirubin Negative (Negative); Urine Character Clear (Clear); Urine Color Yellow; Urine Glucose 4+ (Negative); Urine Ketone 1+ (Negative); Urine Leukocyte Negative (Negative); Urine Nitrite Negative (Negative); Urine Occult Blood Negative (Negative); Urine Urobilinogen Negative (Neg - 1+)
--- NOTE | 2024-10-18 21:50 | HPS.HSE ---
Addendum entered and electronically signed by Herve Blanca DO 10/19/24 01:04:
Addendum:
EKG done shows sinus tachycardia with LBBB pattern. No significant change when compared to prior tracings (taking into account that most recent tracing from 09/30 appears to have limb lead reversal).
Troponin added to initial labs markedly elevated at 13.
No complaint of chest pain / dyspnea.
Begin IV heparin without bolus. Hold further Eliquis.
Trend troponin to peak.
Cardiology evaluation for additional recommendations.
Continue to treat DKA / critical illness.
Original Note:
Family Physician
-
Family Physician: NOT KNOW UNKNOWN - PT DOES
Chief Complaint
-
LLE Pain, Dry Mouth
History of Present Illness
Patient is an 88y F with PMH significant for ASCVD, A-Fib, peritoneal carcinomatosis and recent admission for CHF who presents to ED complaining of severe LLE pain, fatigue and dehydration. Patient is somewhat lethargic in the ED - though she
does answer questions seemingly appropriately when redirected. She complains of L lower leg pain and very dry mouth. Patient has chronic L lower leg pain - but today is much more severe. She states that she has been told 'there is nothing more
they can do' for her leg. Patient underwent revascularization procedure in 04/2024 including stent placement in the L calf.
Patient was most recently admitted for SOB and newly diagnosed with CHF. Echo showed LVEF = 30-35% during that visit. She was newly started / discharged on Farxiga and Toprol XL at that time. Continued on usual Lasix.
Patient denies any cough, SOB, N/V/D or urinary complaints.
She states that she has abdominal pain 'sometimes' - but not at present.
She has abdominal carcinomatosis - she is not aware of the primary. She is followed at [facility] where she is reportedly on chemotherapy.
Medical History
Past Medical History
Past Medical History: Reports Other
Additional Past Medical History:
Peritoneal Carcinomatosis
Peripheral Arterial Disease s/p Left Popliteal and Superficial Femoral Artery Stent
Coronary Artery Disease s/p Stent
Paroxysmal Atrial Fibrillation
Chronic HFrEF
Hypertrophic Cardiomyopathy
Essential Hypertension
Hyperlipidemia
Diabetes Mellitus, Type II
CKD Stage III
COPD
Hyperthyroidism
GERD
Anxiety/Depression
Past Surgical History: Reports Other
Additional Past Surgical History:
LEANN/BSO
Social History
Tobacco: Non-smoker
Alcohol: None
Family History
Family History: Not pertinent
Allergies / Home Medications
Allergies reflects when Allergies were last updated in [employer].
Home Medications with original date entered in [employer]
Allergy/Medication List:
Allergies
Allergy/AdvReac Type Severity Reaction Status Date / Time
acetaminophen [From Ofirmev] Allergy Nausea Verified 10/18/24 20:32
atorvastatin Allergy muscle Verified 10/18/24 20:32
pain and
leg cramps
dabigatran etexilate Allergy patient Verified 10/18/24 20:32
states
esophageal
spasms
dabigatran etexilate mesylate Allergy esophageal Verified 10/18/24 20:32
[From Pradaxa] spasm
doxycycline Allergy Nausea / Verified 10/18/24 20:32
Vomiting
gabapentin Allergy Muscle pain Verified 10/18/24 20:32
magnesium Allergy diarrhea Verified 10/18/24 20:32
nifedipine Allergy Muscle pain Verified 10/18/24 20:32
Tetracyclines Allergy upset Verified 10/18/24 20:32
stomach
and nausea
Home Medications
cyanocobalamin (vitamin B-12) 1,000 mcg tablet 1,000 mcg PO DAILY Supplement 12/02/21
insulin glargine 100 unit/mL (3 mL) subcutaneous pen (Lantus Solostar U-100 Insulin) 20 units SC HS Diabetes 12/02/21
insulin lispro 100 unit/mL subcutaneous solution (Humalog U-100 Insulin) 0 - 9 sliding scale dose SC AC Diabetes 12/02/21
methimazole 5 mg tablet 5 mg PO DAILY Thyroid 12/02/21
pantoprazole 40 mg tablet,delayed release 40 mg PO DAILY Gastrointestinal issue 12/02/21
tiotropium bromide 2.5 mcg/actuation mist for inhalation (Spiriva Respimat) 2 puff inhalation R DAILY wheezing, sob 12/02/21
ferrous sulfate 325 mg (65 mg iron) tablet (iron) 325 mg PO DAILY Supplement 01/06/24
cholecalciferol (vitamin D3) 25 mcg (1,000 unit) tablet (Vitamin D3) 25 mcg PO DAILY 02/03/24
lorazepam 0.5 mg tablet 0.5 mg PO TIDPRN PRN anxiety #4 tabs 02/09/24
Nervive 50mg Tablet 50 mg PO HS 04/16/24
furosemide 40 mg tablet (Lasix) 40 mg PO DAILY 04/20/24
clopidogrel 75 mg tablet 75 mg PO DAILY #90 tabs 04/26/24
acetaminophen 325 mg tablet (Tylenol) 650 mg PO Q6HPRN PRN left leg ankle wound 09/28/24
bisacodyl 10 mg rectal suppository (Gentle Laxative (bisacodyl)) 10 mg MS DAILY PRN Constipation #12 ea 10/03/24
dapagliflozin propanediol 10 mg tablet 10 mg PO DAILY #30 tabs 10/03/24
metoprolol succinate 25 mg tablet,extended release 24 hr 25 mg PO BID #60 tabs 10/03/24
polyethylene glycol 3350 17 gram oral powder packet 17 g PO DAILY #30 ea 10/03/24
tramadol 25 mg tablet 25 mg PO DAILYPRN PRN severe pain #2 tabs 10/03/24
apixaban 2.5 mg tablet (Eliquis) 2.5 mg PO BID 10/18/24
levalbuterol HCl 1.25 mg/3 mL solution for nebulization 1.25 mg inhalation R Q8HPRN PRN SOB 10/18/24
sennosides 8.6 mg-docusate sodium 50 mg tablet 1 tab PO BIDPRN PRN CONSTIPATION 10/18/24
Review of Systems
-
History Source: Patient (limited ROS due to lethargy.)
EENT: Reports Other (Dry mouth)
Respiratory: Denies Cough or Trouble Breathing
Cardiac: Denies Chest Pain
Abdomen/GI: Reports Abdominal Pain; Denies Nausea, Vomiting, Diarrhea or Bloody Stools
: Denies Dysuria or Flank Pain
Musculoskeletal: Reports Muscle Pain and Other (Leg Pain)
Neurological: Denies Headache
Physical Exam
Vital Signs
Vital Signs
Temp Pulse Resp BP Pulse Ox
94.9 F L 97 19 104/50 96
10/18/24 19:57 10/18/24 21:15 10/18/24 21:15 10/18/24 21:00 10/18/24 20:53
Physical Exam
General: Other (Ill-appearing 88y F in mild - moderate distress due to pain / dry mouth / etc.)
HEENT: Other (Dry MM. Supple neck. PERRLA)
Respiratory: Clear; No Wheezes, Rales or Rhonchi
Cardiac: S1/S2; No Murmur
GI: Soft, Non Tender, Non Distended and Normal Bowel Sounds
Musculoskeletal: Other (Purpuric discoloration of the LLE from the knee to the toes. Ulceration of the medial ankle without bleeding / discharge. Poor capillary refill. DP pulse obtainable by doppler. Patient moves extremity / withdraws from
pain. No erythema, increased warmth, induration, etc.)
Neuro: Awake and Other (Lethargic / agitated at times.)
Laboratory Results
-
10/18/24 20:06
10/18/24 20:50
Laboratory Results
Lactic Acid 3.1 mmol/L (0.7-2.0) H 10/18/24 20:50
Total Bilirubin 2.6 mg/dl (0.2-1.3) H 10/18/24 20:50
AST 53 U/L (14-36) H 10/18/24 20:50
ALT 32 U/L (0-35) 10/18/24 20:50
Alkaline Phosphatase 140 U/L (38-126) H 10/18/24 20:50
Impression/Plan
-
A/P: Patient is an 88y F with PMH significant for ASCVD, A-Fib, peritoneal carcinomatosis and CHF who presents to ED complaining of dry mouth, LLE pain and noted to be weak / lethargic.
DKA / DM-II
Pseudohyponatremia
Severe Hypovolemia
TIFFANY on CKD III
- Admit to ICU for further evaluation and treatment.
- Markedly hyperglycemic (> 700) with anion gap acidosis, TIFFANY, hyperkalemia, etc.
- IVFs - hold further Lasix. Stop Farxiga.
- IV insulin infusion.
- Follow for improvement in labs / lytes / anion gap.
- Transition to subcutaneous insulin when anion gap normalized.
- Adjust IVFs in the interim for correction of lytes, glucose, etc.
- SCr = 1.8 compared to recent baseline of 1.2.
- Follow for improvement with volume replacement, etc.
SIRS / Possible Sepsis
- Patient presents with hypothermia, leukocytosis, tachycardia and tachypnea.
- No clear / obvious source for sepsis at this time.
- LLE does not appear cellulitic to me - see below.
- CXR unremarkable. No focal complaints other than leg pain / dry mouth.
- ? SIRS response primarily due to hypovolemia / DKA?
- Check CT A/P now to check for any additional findings.
- Continue broad spectrum abx coverage for now pending culture data, new symptoms, etc.
- Continue IVFs support and follow for clinical improvement.
ASCVD
- History of CAD and PAD with coronary stent and LLE stents.
- LLE with increased pain and purple discoloration.
- Has had ongoing pain and suspect degree of chronic ischemia here.
- ? acutely worsened due to hypovolemia / relative hypoperfusion?
- IVFs / perfusion support as noted above.
- Check DAVID / US in the AM for further evaluation.
- Continue Plavix and Eliquis.
Paroxysmal Atrial Fibrillation
- Stable. Continue metoprolol with holding parameters.
- Continue Eliquis for stroke risk reduction.
Chronic HFrEF
- Recent visit with updated Echo shoing LVEF = 30-35%.
- Newly started on Farxiga and Toprol last admission.
- Hold Lasix acutely. Stop Farxiga.
- Follow I/Os, daily weights, etc.
- Weight per our records down 9kg from prior admission.
Hyperthyroidism
- Maintained on methimazole.
- Check TFTs now and adjust therapy if needed.
- Hypothermia, hypotension, hyperglycemia - ? underactive thyroid at present.
Anemia of Chronic Disease
- Stable. Hgb is near recent baseline.
- Follow for changes with volume replacement.
- TSat slightly low during recent admission.
Peritoneal Carcinomatosis
- Unknown primary. Followed at [facility] and currently on chemo - ? last dose.
- Check CT A/P now as noted above.
- Follow for any new abdominal symptoms.
- Follow-up with Oncology at [facility] as an outpatient.
DVT Prophylaxis: On Eliquis
Code Status: DNR
[2024-10-18 21:52] LABS: Glucose - Point of Care > 600 mg/dl (70-99)
[2024-10-18 21:54] LABS: Venous Blood Gas B.E. -6.4 mmol/L (-4 to +4); Venous Blood Gas O2 Sat % 69.9 %; Venous Blood Gas pCO2 49 mmHg (35-48); Venous Blood Gas pH 7.24 (7.32-7.43); Venous Blood Gas pO2 46 mmHg (30-50)
[2024-10-18 22:04] LABS: B-Hydroxybutyrate 2.21 mmol/L (0.02-0.27)
[2024-10-18 22:16] LABS: Urine Red Blood Cell 0-2 /HPF (0-2); Urine Squamous Cell 0-2 /LPF (Few); Urine White Cell 0-2 /HPF (0-5)
[2024-10-18] MEDS: NOVOLIN R 5 UNITS IV (22:27)
[2024-10-18] MEDS: NOVOLIN R INSULIN INFUSION 100 IV (22:27)
[2024-10-18 23:14] LABS: Phosphorus 5.2 mg/dl (2.5-4.5)
[2024-10-18 23:47] LABS: Glucose - Point of Care 571 mg/dl (70-99)
[2024-10-19] VITALS (51 sets, daily range): BP systolic 80–148; BP diastolic 41–120; BMI 16.5
[2024-10-19 00:11] LABS: INR 2.38; PT 26.1 Sec (11.4-14.6)
[2024-10-19 00:12] LABS: APTT 39.7 Sec (23.4-35.0)
[2024-10-19 00:15] LABS: Blood Urea Nitrogen 78 mg/dl (7-17); Calcium 8.8 mg/dl (8.4-10.2); Carbon Dioxide 17 mmol/L (22-30); Chloride 100 mmol/L (98-107); Estimated Creatinine Clearance 16 ml/min; Glucose 540 mg/dl (70-99); Potassium 5.7 mmol/L (3.5-5.1); Sodium 137 mmol/L (135-145); eGFR 25.08
[2024-10-19] MEDS: NSS 1000 IV (00:20)
[2024-10-19 01:10] LABS: Glucose - Point of Care 573 mg/dl (70-99)
[2024-10-19 01:39] LABS: Hematocrit 28.9 % (37.0-47.0); Hemoglobin 9.4 g/dL (12.0-16.0); Mean Corp Hgb Conc. 32.5 g/dL (33.0-37.0); Mean Corpuscular Hgb 25.2 pg (27.0-31.0); Mean Corpuscular Volume 77.5 fL (81.0-99.0); Platelet Count 107 10^3/uL (130-400); Red Blood Cell Count 3.73 10^6/uL (4.20-5.40); Red Cell Dist. Width 17.4 % (11.5-14.5); White Blood Cell Count 38.4 10^3/uL (4.8-10.8)
[2024-10-19] MEDS: HEPARIN 25000 UNITS/250 ML IV (01:44)
[2024-10-19 02:00] LABS: Blood Urea Nitrogen 79 mg/dl (7-17); Carbon Dioxide 16 mmol/L (22-30); Chloride 102 mmol/L (98-107); Estimated Creatinine Clearance 17 ml/min; Glucose 384 mg/dl (70-99); Potassium 5.5 mmol/L (3.5-5.1); Sodium 138 mmol/L (135-145); eGFR 26.77
[2024-10-19 02:13] LABS: Glucose - Point of Care 437 mg/dl (70-99)
[2024-10-19] MEDS: LOW STRENGTH ASPIRIN 324 MG PO (02:28)
--- NOTE | 2024-10-19 02:39 | W.PN.SEPSIS ---
Sepsis
Vital Signs
Temp Pulse Resp BP Pulse Ox
98.8 F 103 23 88/56 96
10/18/24 22:34 10/19/24 02:30 10/19/24 02:30 10/19/24 02:30 10/19/24 02:30
Physical Exam
Physical Exam:
A focused exam was performed after fluid resuscitation.
Capillary Refill
Bilateral Upper Extremity:
Glenn Time: Less than 3 sec
Bilateral Lower Extremity:
Glenn Time: Less than 3 sec
Pulse Evaluation
Bilateral Radial:
Pulse Evaluation: Present
Bilateral Dorsalis Pedis:
Pulse Evaluation: Present
[2024-10-19 02:54] LABS: Glucose 291 mg/dl (70-99)
[2024-10-19] MEDS: NSS 500 IV (03:06)
[2024-10-19 03:23] LABS: Glucose - Point of Care 299 mg/dl (70-99)
--- NOTE | 2024-10-19 03:57 | PTCARENOTE ---
Pt received from ED ~2300, admit to ICU. Pt belongings w/ pt. HR ST w/ BBB on telemetry. Pt AAO only to self. Insulin gtt received running at 5u/hr. Lee placed per order. Fluids initiated per order, NSS @125mL/hr. Heparin gtt initiated. 324mg
chewable ASA. Pt denies any chest pain. On admission, pt stated her leg pain was 10/10. 20-30 minutes later, pt stated pain was 4/10 and 'all that moving' is what caused the pain. Pt RR Hi on accu check three times in a row, venous glucose levels
drawn each time. JOSE A Lemus aware.
Spoke to JOSE A Lemus about low pressures, 500 mL fluid bolus ordered and administered.
[2024-10-19 04:17] LABS: Glucose - Point of Care 204 mg/dl (70-99)
[2024-10-19 04:57] LABS: Potassium 5.3 mmol/L (3.5-5.1)
[2024-10-19] MEDS: D5/0.45%NACL 1000 IV ×2 (05:22→10:32)
[2024-10-19] MEDS: LEVOPHED 250 IV (05:23)
[2024-10-19 05:30] LABS: Glucose - Point of Care 163 mg/dl (70-99)
--- NOTE | 2024-10-19 05:42 | PTCARENOTE ---
Pt BP minimally responsive to fluids, Levo gtt added. D5 + 1/2NS fluids added per DKA protocol for blood sugar <250. Pt makes huffing noises and moaning - when asked if she is in any pain, pt states no. Pain only when L leg is touched. Pt still only
oriented to self.
[2024-10-19] MEDS: ZOSYN 50 IV (05:51)
[2024-10-19] MEDS: DILAUDID 0.5 MG IV ×2 (06:04→13:35)
--- NOTE | 2024-10-19 06:06 | PTCARENOTE ---
Pt moving L leg in bed and reports severe pain - PRN dilaudid. See MAR.
[2024-10-19 06:17] LABS: Hemoglobin 8.8 g/dL (12.0-16.0); Mean Corp Hgb Conc. 32.6 g/dL (33.0-37.0); Mean Corpuscular Hgb 24.9 pg (27.0-31.0); Mean Corpuscular Volume 76.5 fL (81.0-99.0); Platelet Count 101 10^3/uL (130-400); Red Blood Cell Count 3.53 10^6/uL (4.20-5.40); Red Cell Dist. Width 17.2 % (11.5-14.5); White Blood Cell Count 40.5 10^3/uL (4.8-10.8)
[2024-10-19 06:31] LABS: Glucose - Point of Care 157 mg/dl (70-99)
[2024-10-19 06:44] LABS: ALT (SGPT) 28 U/L (0-35); AST (SGOT) 47 U/L (14-36); Albumin 2.7 g/dl (3.5-5.0); Alkaline Phosphatase 111 U/L (38-126); Blood Urea Nitrogen 78 mg/dl (7-17); Calcium 8.6 mg/dl (8.4-10.2); Carbon Dioxide 22 mmol/L (22-30); Chloride 107 mmol/L (98-107); Direct Bilirubin 0.4 mg/dl (0.0-0.4); Estimated Creatinine Clearance 17 ml/min; Glucose 137 mg/dl (70-99); Magnesium 2.8 mg/dl (1.6-2.3); Phosphorus 3.3 mg/dl (2.5-4.5); Potassium 5.3 mmol/L (3.5-5.1); Sodium 141 mmol/L (135-145); Total Bilirubin 1.3 mg/dl (0.2-1.3); Total Protein 4.5 g/dl (6.3-8.2); eGFR 26.77
[2024-10-19 07:33] LABS: Glucose - Point of Care 166 mg/dl (70-99)
--- NOTE | 2024-10-19 07:41 | CON.INTV ---
Consultation
Consultation Request
Date/Time Consultation Requested: 10/19/2024-7 AM
Date/Time Consultation Performed: 10/19/2024-7:30 AM
Requesting Provider: Hospitalist
Performing Provider: Dr. eRyes
Reason for Consultation: DKA/critical care management
Medical History
-
Chief Complaint: Mental status changes
History of Present Illness:
88-year-old non-smoking female living independently with a history of hypertension, hyperlipidemia, diabetes, cardiomyopathy, heart failure, PAF, CAD, COPD, GERD and PAD recently admitted for congestive heart failure EF 30%, and abdominal
carcinomatosis treated at [facility] with chemotherapy and now found with lethargy, weakness, DKA and swing saw operator consulted for DKA/critical care management 10/19/2024. Patient is very lethargic and not answering questions appropriately. She has mild
respiratory distress. No complaints of pain though review of systems is somewhat unreliable in her lethargic state.
Past Medical History
Past Medical History: None (Hypertension. Hyperlipidemia. Diabetes. Chronic kidney disease stage III. COPD. Hypothyroid. GERD. Anxiety. Depression. Peritoneal carcinomatosis undergoing chemo [facility]. PAD/left popliteal and femoral artery
stent. CAD/stent. PAF. Chronic heart failure reduced EF. Hypertrophic cardiomyo)
Past Surgical History: None (LEANN)
Social History
Tobacco: Non-smoker
Alcohol: None
Drug: None
Personal: Single
Living: Alone
Occupational Exposures: No known asbestos exposure
Environmental Exposures: no known tuberculosis exposure
Family History
Family History: Reviewed & Not Pertinent
Allergies / Home Medications
Allergies
Allergy/AdvReac Type Severity Reaction Status Date / Time
acetaminophen [From [facility]] Allergy Nausea Verified 10/18/24 20:32
atorvastatin Allergy muscle Verified 10/18/24 20:32
pain and
leg cramps
dabigatran etexilate Allergy patient Verified 10/18/24 20:32
states
esophageal
spasms
dabigatran etexilate mesylate Allergy esophageal Verified 10/18/24 20:32
[From Pradaxa] spasm
doxycycline Allergy Nausea / Verified 10/18/24 20:32
Vomiting
gabapentin Allergy Muscle pain Verified 10/18/24 20:32
magnesium Allergy diarrhea Verified 10/18/24 20:32
nifedipine Allergy Muscle pain Verified 10/18/24 20:32
Tetracyclines Allergy upset Verified 10/18/24 20:32
stomach
and nausea
Home Medications
�Medication �Instructions �Recorded �Confirmed �Last Taken �Type
cyanocobalamin (vitamin B-12) 1,000 mcg PO DAILY Supplement 12/02/21 10/18/24 09/28/24 History
1,000 mcg tablet
insulin glargine 100 unit/mL (3 20 units SC HS Diabetes 12/02/21 10/18/24 09/27/24 History
mL) subcutaneous pen (Lantus
Solostar U-100 Insulin)
insulin lispro 100 unit/mL 0 - 9 sliding scale dose SC AC 12/02/21 10/18/24 04/25/24 19:00 History
subcutaneous solution (Humalog Diabetes
U-100 Insulin)
methimazole 5 mg tablet 5 mg PO DAILY Thyroid 12/02/21 10/18/24 09/28/24 History
pantoprazole 40 mg tablet,delayed 40 mg PO DAILY Gastrointestinal 12/02/21 10/18/24 09/28/24 History
release issue
tiotropium bromide 2.5 2 puff inhalation R DAILY 12/02/21 10/18/24 09/28/24 History
mcg/actuation mist for inhalation wheezing, sob
(Spiriva Respimat)
ferrous sulfate 325 mg (65 mg 325 mg PO DAILY Supplement 01/06/24 10/18/24 09/28/24 History
iron) tablet (iron)
cholecalciferol (vitamin D3) 25 25 mcg PO DAILY 02/03/24 10/18/24 09/28/24 History
mcg (1,000 unit) tablet (Vitamin
D3)
lorazepam 0.5 mg tablet 0.5 mg PO TIDPRN PRN anxiety #4 02/09/24 10/18/24 Unknown Rx
tabs
Nervive 50mg Tablet 50 mg PO HS 04/16/24 10/18/24 09/27/24 History
furosemide 40 mg tablet (Lasix) 40 mg PO DAILY 04/20/24 10/18/24 09/28/24 History
clopidogrel 75 mg tablet 75 mg PO DAILY #90 tabs 04/26/24 10/18/24 09/28/24 Rx
acetaminophen 325 mg tablet 650 mg PO Q6HPRN PRN left leg 09/28/24 10/18/24 Unknown History
(Tylenol) ankle wound
bisacodyl 10 mg rectal suppository 10 mg [place] DAILY PRN Constipation 10/03/24 10/18/24 Unknown Rx
(Gentle Laxative (bisacodyl)) #12 ea
dapagliflozin propanediol 10 mg 10 mg PO DAILY #30 tabs 10/03/24 10/18/24 Unknown Rx
tablet
metoprolol succinate 25 mg 25 mg PO BID #60 tabs 10/03/24 10/18/24 Unknown Rx
tablet,extended release 24 hr
polyethylene glycol 3350 17 gram 17 g PO DAILY #30 ea 10/03/24 10/18/24 Unknown Rx
oral powder packet
tramadol 25 mg tablet 25 mg PO DAILYPRN PRN severe pain 10/03/24 10/18/24 Unknown Rx
#2 tabs
apixaban 2.5 mg tablet (Eliquis) 2.5 mg PO BID 10/18/24 10/18/24 Unknown History
levalbuterol HCl 1.25 mg/3 mL 1.25 mg inhalation R Q8HPRN PRN SOB 10/18/24 10/18/24 Unknown History
solution for nebulization
sennosides 8.6 mg-docusate sodium 1 tab PO BIDPRN PRN CONSTIPATION 10/18/24 10/18/24 Unknown History
50 mg tablet
Review of Systems
-
Unable to Obtain full review of systems at this time due to: Other (Per HPI)
Vitals / Labs / Diagnostic Testing
Vital Signs
Temp Pulse Resp BP Pulse Ox
99.3 F 81 15 122/58 95
10/19/24 07:15 10/19/24 07:15 10/19/24 07:15 10/19/24 07:15 10/19/24 07:15
Lab Data
10/19/24 06:01
Laboratory Results
10/18/24 10/19/24
23:46 00:55
PT 26.1 H
INR 2.38
APTT 39.7 H Cancelled
Microbiology
10/18/24 21:07 Nasal Swab Influenza Types A & B (JOANNA) - Final
Negative for Influenza A & B, NAAT
Negative results must be combined with clinical observations
and patient history.
Nucleic Acid Amplification test (NAAT)performed on the
[employer] platform.
Diagnostic Testing:
Physical Exam
-
Exam:
Elderly female in mild respiratory distress
HEENT-atraumatic, normocephalic, temporal wasting
Neck-supple, no JVD, no bruit
Heart-regular rate and rhythm-systolic murmur
Chest with diminished breath sounds, no crackles or wheezes
Abdomen-soft, nontender, nondistended, no hepatosplenomegaly
Extremities-no cyanosis, clubbing, edema and good peripheral pulses
Integument-intact, no rashes, lesions or ecchymosis
Neurologically moving extremities, extremely lethargic
Assessment
-
88-year-old non-smoking female living independently with a history of hypertension, hyperlipidemia, diabetes, cardiomyopathy, heart failure, PAF, CAD, COPD, GERD and PAD recently admitted for congestive heart failure EF 30%, and abdominal
carcinomatosis treated at [facility] with chemotherapy and now found with lethargy, weakness, DKA and swing saw operator consulted for DKA/critical care management 10/19/2024.
DKA-initial blood sugar 720, anion gap
Pseudohyponatremia
TIFFANY on top of chronic kidney disease stage III
Sepsis with shock unresponsive to fluids requiring pressors
Chronic heart failure reduced EF
Leukocytosis
Coexyn-vpkpqdifot-yaybrzerod 8.8
Thrombocytopenia-platelet 101
Metabolic acidosis
Hyperkalemia
Cellulitis
Conditions present prior to admission:
Recent hospitalization-discharge 10/03/2024-CHF reduced EF
Hypertension.
Hyperlipidemia.
Diabetes.
Chronic kidney disease stage III.
COPD.
Hypothyroid.
GERD.
Anxiety.
Depression.
Peritoneal carcinomatosis undergoing chemo [facility].
PAD/left popliteal and femoral artery stent.
CAD/stent.
PAF.
Chronic heart failure reduced EF.
Hypertrophic cardiomyopathy
LEANN
Plan
Admit patient to medical intensive care unit for persistent hypotension despite fluid resuscitation requiring pressors
Supplement oxygen as needed
High flow oxygen if needed
BiPAP if necessary
Patient is DO NOT RESUSCITATE
Aspiration precautions
Nebulizers if needed
Obtain cultures
Monitor cellulitis
Empiric antibiotics
Consider Infectious disease consultation
Monitor leukocytosis
Fluid resuscitation with 30 mL/kg crystalloid-preferably lactated ringer-(less TIFFANY) with subsequent boluses as needed
Monitor lactate
Follow CVP if possible
Attempt noninvasive bedside tissue perfusion evaluation to see if fluid bolus responsive
Measure pulse pressure and stroke volume variation if patient on ventilator, passively breathing without arrhythmia and with temporary large tidal volume ventilation and if > 13% then likely fluid bolus responsive
If patient active then consider measuring bedside leg lift for 3 minutes and if cardiac output increases or if there is a rise of 2-4 on end-tidal CO2 then fluid bolus
If bedside ultrasound available then measure IVC diameter variation to evaluate for fluid bolus responsiveness
Begin pressors as needed for MAP goal of 65-Norepinephrine first, then Vasopressin and consider Angiotensin II if continues to be hypotensive
Consider methylene blue if available-specific inhibitor of induced nitric oxide synthase iNOS and its downstream enzyme soluble guanylate cyclase-noninferiority study shown to reduce time to vasopressor discontinuation, decreased ICU length of stay,
hospital stay but no change in mortality-published Critical Care 11/17/2022
If persistently hypotensive then consider checking random cortisol-hydrocortisone if random less than 3, if 3-15 then consider ACTH stimulation test
If persistently hyperthermic then correcting hyperthermia can decrease pressor requirements, increased chances of reversal of shock and decrease mortality
Monitor blood sugar
Monitor anion gap
Insulin drip
Check A1c if not done in the last 3 months
Diabetic nurse practitioner consultation
Monitor potassium closely and replace appropriately
Monitor for fluid overload
Eventual gentle diuresis
Monitor pleural effusions and thoracentesis if pleural effusions increase in size
Monitor hemoglobin
Transfuse if needed
Monitor platelet count
Vascular consult
DVT prophylaxis
Early nutrition if possible
Early mobilization/bedside range of motion
Goals of care discussion-Sister Pierre Valentin [phone] exacting power of document review attorney
Critical care statement: A total of 65 minutes of critical care time was provided for this patient today. This includes management of unstable vital signs, evaluation of the patient at bedside, reviewing the patient's pertinent medical records
including radiographs, pressor management, insulin drip management microbiology, laboratory evaluations, and discussion with primary team, consultants, pharmacy, nutrition, physical therapy, case management, charge nurse, critical care nursing, and
respiratory therapy.
Diagnostic data:
Chest x-ray 12/02/2021-NAD
Chest x-ray 09/28/2024-bilateral interstitial markings with suspicion of interstitial edema, small bilateral pleural effusions
Chest x-ray 10/19/2024-mild to moderate diffuse airspace disease stable compared to 10/18/2024 consistent with inflammatory airspace disease
CT chest 12/03/2021-no acute disease in the chest, mild emphysematous disease which is stable, prior granulomatous disease,
VQ scan 12/03/2021-low probability
Echocardiogram 09/29/2024-EF 30-35%, septal hypokinesis, stage II diastolic dysfunction, moderate mitral regurgitation, mild aortic stenosis
Data Reviewed
-
EKG: Report reviewed by me
Radiology: Image personally visualized and interpreted and Report reviewed by me
Medical Tests (Nuc Med, Echo etc): Report reviewed by me
Labs: Labs reviewed by me
Old Records: Reviewed
Critical Care Time (in minutes): 65
--- NOTE | 2024-10-19 08:03 | W.PN.UPDATE ---
Addendum entered and electronically signed by Tal Jackson MD 10/19/24 08:06:
Notes and labs reviewed. White blood cell count and lactate all elevated. Suggestive of potential sepsis. Will attempt to contact family. She is very high risk with or without surgery if surgery is required. She has extensive medical history as
noted including peritoneal carcinomatosis. Therefore the source is not exactly clear to me as noted below.
Original Note:
Update Note
Progress Note Update
Seen and evaluated with MACHINIST TOOL AND DIE's. Full consultation to follow. Known to our service status post staged bilateral lower extremity endovascular revascularizations. Extensive medical history as noted. Now admitted with lethargy and from notes/reports
left leg worsened pain. She has chronic left leg pain but it was worsened per the emergency room and admitting notations. I am unable to get a history from the patient as she is lethargic and noncommunicative. She does moan some. On exam is
noted she is lethargic. She is not really totally following commands or responding to me. She does moan some. She is moving all extremities. She does move the left ankle some. Similarly moves the right ankle some. Not really wiggling toes on
either side. Both feet are equal temperature and reasonably warm. Neither are cold. I am able to Doppler a left PT reasonable signal. On the right side very weak DP signal. Left calf with chronic venous changes. She does have tenderness
throughout the left calf and it slightly colon than the right calf. Compartments are soft. I cannot tell if this tenderness is superficial due to the chronic skin changes or if this is due to muscle tenderness. She does have a left medial ankle
wound that is dried/ischemic appearing. Her left foot demonstrates some elevation pallor. There is maybe trace cap refill but it is a little bit tough to tell on both feet whether the cap refill is good. Very difficult exam in terms of assessing
her feet.
Plan/cannot definitively say whether there is worsening irreversible ischemia to the foot or if this is chronic baseline. Very difficult to tell based on her history limitations, and complex exam. Her wound definitely looks ischemic but it is a
chronic wound. She definitely has a dopplerable PT signal which suggest that this is not an acute limb ischemia event. However she has poorly blanching discoloration of her foot. It seems more elevation pallor in nature. Would obtain duplex now.
We can assess and compare to prior duplexes and DAVID/TBI studies. However, truthfully the only thing can offer here is if this is a concern for sepsis from this source would be guillotine [id number] amputation or definitive [id number]-[id number]
amputation for source control. Very difficult to say that this is definitively the septic source. But I cannot rule that out.
--- NOTE | 2024-10-19 08:05 | PTCARENOTE ---
Received pt in modified isolation. She is moaning. Eyes closed. Intermittently responsive to simple questions. She was informed of the events of her hospitalization and the plan of care. Right FA IV's with IVF, Heparin & insulin drips. Left AC#20g
with Norepinephrine for MAP>65mmHg. Doppler DP?PT pulses. Left L/E purple/blue, red discoloration with edema > than the right. Silicone border dressing to LLE intact, right L/E silicone border dressing intact. Breath sounds dim throughout
posteriorly. RA pulse ox 93-97%. Hypoactive BSX4. Weak cough after small sip of water. Will keep her NPO, Dr. Reyes notified. Sacrum with silicone border dressing, removed due to soilage. She has a blanchable red area. Skin barrier applied and new
Optifoam gentle dressing applied. Heels elevated on pillows. Safe environment maintained.
--- NOTE | 2024-10-19 08:10 | CON.VAS ---
Consultation
Consultation Request
Date/Time Consultation Performed: 10/19/24
Requesting Provider: Hospitalist
Performing Provider: Shira Rivas, DO ALL OPERATOR-C for Tal Jackson MD
Reason for Consultation: Left lower extremity pain with chronic wound
Medical History
-
Chief Complaint: Left lower extremity pain
History of Present Illness:
This is an 88-year-old female with significant past medical history for A-fib on Eliquis, CKD III, COPD, CAD (MS with stents), CHF, hypertension, hypercholesterolemia, insulin-dependent diabetic, peritoneal carcinomatosis, and PAD who presented to
[facility] on 10/18/2024 via EMS for reports of lethargy. Patient is currently nonverbal and minimally interactive with physical exam and HPI collection thus HPI is by chart review. Per review of EMS/ED report and H&P patient presented late last
evening via EMS for reports of worsening left lower extremity pain over the past 3 days, decreased appetite, and lethargy. Apparently she was verbal in ED but is currently nonverbal. She is known to our vascular surgical services for peripheral
arterial disease, please see below for vascular surgical history. Patient was found to have mental status change, leukocytosis, anion gap, and hypothermia prompting concerns for sepsis and DKA, thus patient admitted to ICU.
Vascular surgical history:
01/08/24- Diagnostic left lower extremity arteriogram, intravascular lithotripsy to left tibioperoneal trunk occlusion Low Lee III, MD
02/04/24- Right lower extremity arteriogram, balloon angioplasty of behind the knee string-like popliteal artery severe stenosis, placement of stent left behind knee popliteal artery to above-knee popliteal artery Tal Jackson MD
04/26/24- Diagnostic left lower extremity arteriogram, intravascular lithotripsy to left tibioperoneal trunk, intravascular lithotripsy to left popliteal artery and superficial femoral artery, balloon angioplasty of tibioperoneal trunk, balloon
angioplasty and stenting of popliteal artery and distal superficial femoral artery Low Lee III, MD
Past Medical History
Past Medical History: Arrhythmias (Atrial fibrillation), CAD, CHF, COPD, GERD, HTN, Hypercholesterolemia, IDDM and Other (Peritoneal carcinomatosis and peripheral arterial disease)
Past Surgical History: Gynecological (LEANN/BSO)
Social History
Tobacco: Former Smoker
Personal:
Living: Alone
Allergies / Home Medications
Allergy/AdvReac Type Severity Reaction Status Date / Time
acetaminophen [From [facility]] Allergy Nausea Verified 10/18/24 20:32
atorvastatin Allergy muscle Verified 10/18/24 20:32
pain and
leg cramps
dabigatran etexilate Allergy patient Verified 10/18/24 20:32
states
esophageal
spasms
dabigatran etexilate mesylate Allergy esophageal Verified 10/18/24 20:32
[From Pradaxa] spasm
doxycycline Allergy Nausea / Verified 10/18/24 20:32
Vomiting
gabapentin Allergy Muscle pain Verified 10/18/24 20:32
magnesium Allergy diarrhea Verified 10/18/24 20:32
nifedipine Allergy Muscle pain Verified 10/18/24 20:32
Tetracyclines Allergy upset Verified 10/18/24 20:32
stomach
and nausea
�Medication �Instructions �Recorded �Confirmed �Type
cyanocobalamin (vitamin B-12) 1,000 mcg PO DAILY Supplement 12/02/21 10/18/24 History
1,000 mcg tablet
insulin glargine 100 unit/mL (3 20 units SC HS Diabetes 12/02/21 10/18/24 History
mL) subcutaneous pen (Lantus
Solostar U-100 Insulin)
insulin lispro 100 unit/mL 0 - 9 sliding scale dose SC AC 12/02/21 10/18/24 History
subcutaneous solution (Humalog Diabetes
U-100 Insulin)
methimazole 5 mg tablet 5 mg PO DAILY Thyroid 12/02/21 10/18/24 History
pantoprazole 40 mg tablet,delayed 40 mg PO DAILY Gastrointestinal 12/02/21 10/18/24 History
release issue
tiotropium bromide 2.5 2 puff inhalation R DAILY 12/02/21 10/18/24 History
mcg/actuation mist for inhalation wheezing, sob
(Spiriva Respimat)
ferrous sulfate 325 mg (65 mg 325 mg PO DAILY Supplement 01/06/24 10/18/24 History
iron) tablet (iron)
cholecalciferol (vitamin D3) 25 25 mcg PO DAILY 02/03/24 10/18/24 History
mcg (1,000 unit) tablet (Vitamin
D3)
lorazepam 0.5 mg tablet 0.5 mg PO TIDPRN PRN anxiety #4 02/09/24 10/18/24 Rx
tabs
Nervive 50mg Tablet 50 mg PO HS 04/16/24 10/18/24 History
furosemide 40 mg tablet (Lasix) 40 mg PO DAILY 04/20/24 10/18/24 History
clopidogrel 75 mg tablet 75 mg PO DAILY #90 tabs 04/26/24 10/18/24 Rx
acetaminophen 325 mg tablet 650 mg PO Q6HPRN PRN left leg 09/28/24 10/18/24 History
(Tylenol) ankle wound
bisacodyl 10 mg rectal suppository 10 mg [place] DAILY PRN Constipation 10/03/24 10/18/24 Rx
(Gentle Laxative (bisacodyl)) #12 ea
dapagliflozin propanediol 10 mg 10 mg PO DAILY #30 tabs 10/03/24 10/18/24 Rx
tablet
metoprolol succinate 25 mg 25 mg PO BID #60 tabs 10/03/24 10/18/24 Rx
tablet,extended release 24 hr
polyethylene glycol 3350 17 gram 17 g PO DAILY #30 ea 10/03/24 10/18/24 Rx
oral powder packet
tramadol 25 mg tablet 25 mg PO DAILYPRN PRN severe pain 10/03/24 10/18/24 Rx
#2 tabs
apixaban 2.5 mg tablet (Eliquis) 2.5 mg PO BID 10/18/24 10/18/24 History
levalbuterol HCl 1.25 mg/3 mL 1.25 mg inhalation R Q8HPRN PRN SOB 10/18/24 10/18/24 History
solution for nebulization
sennosides 8.6 mg-docusate sodium 1 tab PO BIDPRN PRN CONSTIPATION 10/18/24 10/18/24 History
50 mg tablet
Review of Systems
-
Unable to obtain full review of systems at this time due to: Acuity and Patient Non Verbal
Physical Exam
Vital Signs
Temp Pulse Resp BP Pulse Ox
99.3 F 81 15 122/58 95
10/19/24 07:15 10/19/24 07:15 10/19/24 07:15 10/19/24 07:15 10/19/24 07:15
Lab Results
10/19/24 06:01
Troponin I 13.800 ng/ml H* 10/19/24 04:29
Physical Exam
General: No Apparent Distress
HEENT: Normocephalic, Anicteric and Atraumatic
Respiratory: Non Labored Respirations
Cardiac: Negative JVD
GI: Soft, Non Tender and Non Distended
Musculoskeletal: No Edema
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
Neuro: Other (Does not follow commands or respond to questions/commands, does move bilateral upper extremity and lower extremity spontaneously)
Pulses: Right Dorsalis Pedis: Doppler and Left Posterior Tibial: Doppler
Assessment / Plan
-
Assessment: 88-year-old female with concerns for left foot ischemia acute versus chronic
Plan:
Dr. Tal Jackson at bedside for physical exam, per attending cannot definitively say whether there is worsening irreversible ischemia to the left foot or if this is chronic baseline. Additionally, due to TIFFANY cannot obtain CTA, we will proceed with
arterial ultrasound DAVID/TBI which will give us a comparison to prior duplexes and DAVID/TBI studies. However, the only surgical intervention to offer given the concern for sepsis from this source would be guillotine [id number] amputation or
definitive [id number] amputation for source control. Very difficult to say that this is definitively the septic source.
Dr. Tal Jackson will attempt to speak to listed contacts in chart.
--- NOTE | 2024-10-19 08:15 | W.PN.UPDATE ---
Update Note
Progress Note Update
I had an extensive conversation over the phone with patient's primary contact Kandace Pacheco [phone]. I discussed extensively with her the situation. I clarified with her, and she noted that she checks on the patient daily. When she had
checked yesterday morning patient was in some discomfort with her left leg but she notes that she has had chronic left leg discomfort. She could not assess whether it is worse but the patient was complaining of pain in the left leg that was
relatively constant and she could not sleep that night. When she checked in in the afternoon with the patient, she was very confused and that led to her calling 911. I discussed extensively with Kandace the current situation from my vantage point.
Discussed that if indeed her sepsis is related to her left leg, my recommendation would be proceeding with [id number] amputation for source control if they wished for everything to be done. However I discussed that there is no guarantee that
she could survive even with source control at this point given her extensive medical history, her advanced age. From what Kandace relayed to me, the patient was very independent, and would likely not want to live with an amputation. In addition she
was not as aggressive with her peritoneal carcinomatosis as well due to multiple reasons, and she also notes that the patient has really declined over the last few months. Based on all this she seems to be leaning towards comfort care measures.
However, she will contact the patient's sister who is her other contact centre supervisor and they both have power of state's attorney. They will then clarify for us how aggressively they wish for us to be.
[2024-10-19 08:22] LABS: Glucose - Point of Care 166 mg/dl (70-99)
--- NOTE | 2024-10-19 08:25 | PHA.VAN.IN ---
Assessment
- Assessment
Renal Function: Appears elevated from baseline (SCR 1.8 vs 0.9-1.1 )
Concomitant Antimicrobials: piperacillin/tazobactam
Plan
- Plan
Initial / Loading Dose: 1500mg - 10/18 21:42
Maintenance Regimen: dosing by level
Monitoring: obtain random this AM to assess if further dosing necessary today
MRSA Screen: Ordered per protocol
Pharmacokinetics Vancomycin I
- -
Patient Age: 88
Patient Sex: Female
Vancomycin Day #: 1
Indication: Bacteremia
Requesting Provider: Dr. Blanca
Pertinent Antimicrobial Allergies:
doxycycline- nausea/vomiting; tolerates with food
tetracyclines - upset stomach / nausea
Height / Weight:
Height 5 ft 8 in
Actual Weight 49.2 kg
IBW in k.9
Pertinent Past Medical History: BMI ~16.5, DM 2, CKD, PAD, Peritoneal Carcinomatosis
- Vital Signs / Lab Results
Temp Pulse Resp BP Pulse Ox
99.3 F 81 15 122/58 95
10/19/24 07:15 10/19/24 07:15 10/19/24 07:15 10/19/24 07:15 10/19/24 07:15
Lab Results - Hematology
10/18/24 10/19/24 10/19/24
20:06 01:22 06:01
WBC 35.7 H 38.4 H 40.5 H*
Lab Results - Chemistry
10/18/24 10/18/24 10/18/24
20:06 20:50 23:46
BUN 82 H 83 H 78 H
Creatinine 1.8 H 1.8 H 1.9 H
Estimated Creat Clear 17 17 16
Albumin Cancelled 3.3 L
10/19/24 10/19/24
01:22 06:01
BUN 79 H 78 H
Creatinine 1.8 H 1.8 H
Estimated Creat Clear 17 17
Albumin 2.7 L
10/18/24 10/19/24
20:50 06:27
Lactic Acid 3.1 H Cancelled
Lab Results - Urine
10/18/24
21:07
Urine Nitrite (Reflex) Negative
Leukocyte Esterase Rfl Negative
Urine WBC (Reflex) 0-2
Ur Squamous Epith Cells 0-2
Microbiology Results
10/18/24 21:07 Influenza Types A & B (JOANNA) - Final
Nasal Swab Negative for Influenza A & B, NAAT
Negative results must be combined with clinical observations
and patient history.
Nucleic Acid Amplification test (NAAT)performed on the
[employer] platform.
[2024-10-19 09:18] LABS: Glucose - Point of Care 183 mg/dl (70-99)
[2024-10-19 09:32] LABS: Blood Urea Nitrogen 76 mg/dl (7-17); Calcium 8.4 mg/dl (8.4-10.2); Carbon Dioxide 23 mmol/L (22-30); Chloride 104 mmol/L (98-107); Estimated Creatinine Clearance 18 ml/min; Glucose 160 mg/dl (70-99); Potassium 5.1 mmol/L (3.5-5.1); Sodium 137 mmol/L (135-145); eGFR 28.67
[2024-10-19 09:36] LABS: APTT 41.7 Sec (23.4-35.0)
--- NOTE | 2024-10-19 09:37 | W.PN.HOSP.TC ---
Addendum entered and electronically signed by Jose Juan Trejo MD 10/19/24 21:18:
Attending Addendum-
I saw and evaluated the patient. I reviewed the resident�s note and agree with findings and plan as documented in the resident�s note. Sub: Patient barely responding but able to wake up intermittently to answer yes/no questions. Full 12 point ROS
attempted and negative except as documented Exam: Vitals reviewed in chart GEN-mild distress, Heart RRR lungs crackles at bases abd soft LE trace edema perfused warm dietz in place
Plan:
Problems-
-Septic Shock- no definitive source probable LLE wound
-DKA
-Pseudohyponatremia
-TIFFANY on CKD IIIa
-non ischemic myocardial injury
-hyperkalemia
-Severe Leukocytosis
-History of CAD and PAD with coronary stent and LLE stents.
-Paroxysmal Atrial Fibrillation
-Chronic HFrEF-LVEF = 30-35%.
-Hyperthyroidism
-Anemia of Chronic Disease
-Peritoneal Carcinomatosis
Plan:
DC all life sustaining meds ie hep gtt, insulin gtt, Levophed s/p multiple conversations with POA and family
Start comfort care measures morphine ativan including 02 for comfort, consult hospice, actively dying will likely pass in 24-48 hours
CODE DNR
ACP
Patient unable to consent to discuss, D/W POA Pierre, time spent explanation of advance directives, changes in health status, patient�s health care wishes if the patient becomes unable to make health decisions, goals of care, code status, and
prognosis agreeable to place on comfort care- 19 minutes
Time spent coordinating care, review of plan of care with resident, personally reviewed previous records in EMR, med rec, labs, radiology, d/w nursing, family total time documented is exclusive of any additional time listed that was spent in advance
care planning discussion -�51 minutes
Original Note:
Today's Communication/Plan
-
GOC discussion with patient and POAs
Hospice consult after GOC discussion
Transition to subQ Insulin
Cont wide-spectrum antibiotics
Maintain SBP>90, wean pressors as able
Follow cultures
CBC, BMP
Assessment / Plan
Assessment / Plan
Patient is an 88y F with PMH significant for ASCVD, A-Fib, peritoneal carcinomatosis, chronic anemia and HFrEF who was brought to ED after medical alert went off. She was complaining of dry mouth, LLE pain on arrival and noted to be weak /
lethargic.
#DKA possibly in the setting of sepsis
- Admitted to ICU on 10/18
- Markedly hyperglycemic (> 700) with high anion gap acidosis, hyperkalemia, ketonuria on admission
- Very dry MM
- Cont N/S, currently @150cc/hr
- Cont to hold Lasix and Farxiga
- IV insulin infusion, currently @2units/hr
- Transition to subcutaneous insulin now that anion gap is closed.
- Cont to monitor BMP and BG
- Cont AccuCheck
#TIFFANY on CKD III
- Serum Cr=1.8 (baseline: 1.2).
- Follow for improvement with IVF treatment
- Hyperkalemia resolved
#SIRS positive
- Patient presented with hypothermia, leukocytosis, tachycardia and tachypnea on admission
- No definite source for sepsis at this time although suspicious for LLE cellulitis
- Cont Zocyn + Vanco for now and monitor clinical improvement
- Cont to follow cultures
- Vascular surgery on board- Recommend [id number] amputation for source control but no guarantee that she could survive- Based on discussion with POA, she seems to be leaning towards comfort care measures.
- CXR unremarkable
- Could be SIRS response is d/t DKA or vice versa
- CT Abd/Pelvis: no evidence of sepsis source
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
There is similar appearance of the soft tissue attenuation extending adjacent to the descending colon, possible peritoneal carcinomatosis.
Mild colonic stool burden.
Similar appearance of the 1.8 cm hypodense focus on the right adjacent to the vaginal introitus, likely a Bartholin gland cyst.
Bibasilar atelectasis with likely mild interstitial edema.
-Wean pressors as tolerated
#Pseudohyponatremia
- Possibly in the setting of severe hypovolemia and DKA
#Marked Leukocytosis
-Could be in the setting of sepsis vs peritoneal carcinomatosis
-Expect to improve with antimicrobial treatment if related to sepsis
-Cont to monitor CBC
#ASCVD
- History of CAD and PAD with coronary stent and LLE stents in 04/30.
- LLE with increased pain and purple discoloration
- Appreciate vascular surgery
- Troponin elevated-continue to trend to peak
- Continue IVF and heparin gtt, currently @600
- DAVID / US checked this AM (0.2 both LEs)
- Continue Plavix and Eliquis
Paroxysmal Atrial Fibrillation
- Stable. Continue metoprolol with holding parameters.
- Continue Eliquis
Chronic HFrEF
- Previously HFpEF-Recent Echo on 09/29/24 showing LVEF = 30-35%.
- Newly started on Farxiga and Toprol last admission.
- Hold Lasix acutely and Farxiga.
- Follow I/Os, daily weights
Hyperthyroidism
- Maintained on methimazole.
- TSH WNL
a
Anemia of Chronic Disease
- Stable. Hgb is near recent baseline.
- Transfuse blood if Hgb <7
Peritoneal Carcinomatosis
- Followed at [facility] and currently on chemo - last session is unclear
- Follow with [facility] as an outpatient.
DVT Prophylaxis: On Eliquis
Patient needs GOC discussion. We recommend transition to comfort care. Will speak with POAs.
Code Status: DNR
Anticipated Discharge: Within 24 hours
Subjective/Interval History
-
Date of Service: October 19, 2024
Patient does open eyes when calling her name but does not follow commands.
Is lethargic and hard to keep awake.
Objective Data
-
Labs:
Laboratory Results
10/18/24 10/18/24 10/19/24
20:50 23:46 00:55
WBC
Hgb
Hct
Plt Count
PT 26.1 H
INR 2.38
APTT 39.7 H Cancelled
Sodium 130 L 137
Potassium 6.5 H* 5.7 H
Chloride 95 L 100
Carbon Dioxide 18 L 17 L
BUN 83 H 78 H
Creatinine 1.8 H 1.9 H
Glucose 726 H* 540 H*
Calcium 9.2 8.8
Total Bilirubin 2.6 H
AST 53 H
ALT 32
Alkaline Phosphatase 140 H
10/19/24 10/19/24 10/19/24
01:22 01:22 02:21
WBC 38.4 H
Hgb 9.4 L
Hct 28.9 L
Plt Count 107 L
PT
INR
APTT
Sodium 138
Potassium Cancelled 5.5 H
Chloride 102
Carbon Dioxide 16 L
BUN 79 H
Creatinine 1.8 H
Glucose 384 H 291 H
Calcium 9.0
Total Bilirubin
AST
ALT
Alkaline Phosphatase
10/19/24 10/19/24 10/19/24
04:29 06:01 09:08
WBC 40.5 H*
Hgb 8.8 L
Hct 27.0 L
Plt Count 101 L
PT
INR
APTT Pending
Sodium 141 137
Potassium 5.3 H 5.3 H Cancelled
Chloride 107
Carbon Dioxide 22
BUN 78 H
Creatinine 1.8 H
Glucose 137 H
Calcium 8.6
Total Bilirubin 1.3 D
AST 47 H
ALT 28
Alkaline Phosphatase 111
10/19/24 10/19/24 10/19/24
09:08 12:00 14:00
WBC
Hgb
Hct
Plt Count
PT
INR
APTT
Sodium Pending
Potassium 5.1 Pending Pending
Chloride 104 Pending
Carbon Dioxide 23 Pending
BUN 76 H Pending
Creatinine 1.7 H Pending
Glucose 160 H Pending
Calcium 8.4 Pending
Total Bilirubin
AST
ALT
Alkaline Phosphatase
10/19/24 10/19/24
18:58 22:58
WBC
Hgb
Hct
Plt Count
PT
INR
APTT
Sodium Pending Pending
Potassium Pending Pending
Chloride Pending Pending
Carbon Dioxide Pending Pending
BUN Pending Pending
Creatinine Pending Pending
Glucose Pending Pending
Calcium Pending Pending
Total Bilirubin
AST
ALT
Alkaline Phosphatase
Vital Signs:
Vital Signs
Temp Pulse Resp BP Pulse Ox
99.3 F 82 14 140/70 96
10/19/24 07:15 10/19/24 09:15 10/19/24 09:15 10/19/24 09:15 10/19/24 09:15
I&O
10/18/24 10/19/24 10/20/24
06:59 06:59 06:59
Intake Total 1241 / 1421.5 361.0 / 361.0
Output Total 345 / 348 78 / 78
Balance 896 / 1073.5 283.0 / 283.0
Review of Systems
-
Unable to obtain full review of systems at this time due to: Patient Non-verbal
Physical Exam
-
General: Well Developed, Well Nourished and No Apparent Distress
HEENT: Normocephalic, Atraumatic and Moist Mucous Membranes
Respiratory: Clear to Auscultation; Negative Wheezes, Rales or Rhonchi
Cardiac: S1/S2, Irregular Rhythm and Murmur (3/6sem)
GI: Soft, Nontender and Nondistended
Musculoskeletal: Other (rt foot warm to touch)
Skin: Rash (rt leg changes with probable cellulitis significantly less pronounced today, chronic wounds, erythema and subcutaneous swelling, Rt lower leg tissue remains warm, red and tender)
Neuro: Awake, Alert and Oriented
[2024-10-19 09:52] LABS: Lactic Acid 2.5 mmol/L (0.7-2.0)
--- NOTE | 2024-10-19 10:01 | W.PN.UPDATE ---
Update Note
Progress Note Update
Spoke to her sister Pierre Valentin ([phone]). She is the acting power of environmental attorney (she spoke to Kandace after i had spoken to her). Pierre spoke her brother and they both agree and wish to pursue comfort care route. Will update hospitalist.
Her (Pierre) number is [phone].
[2024-10-19] MEDS: NSS (PRESERVATIVE FREE) 10 ML IV (10:23)
[2024-10-19] MEDS: PROTONIX IV 40 MG IV (10:23)
[2024-10-19 10:24] LABS: Glucose - Point of Care 130 mg/dl (70-99)
--- NOTE | 2024-10-19 11:15 | PTCARENOTE ---
No changes. Doppler signal to DP/PT present. She is restless and moaning. Denies any pain in her back, legs, or abdomen. Intermittently responsive.
[2024-10-19 11:24] LABS: Glucose - Point of Care 167 mg/dl (70-99)
--- NOTE | 2024-10-19 11:40 | PTCARENOTE ---
Pt's sister Sue called inquiring about her, asking if she were comfortable. I verified transitioning to comfort core and notified Dr. Manzano with that information along with a phone #[phone] & #[phone]. Case management also aware of
this plan. Awaiting further ordered. At this time all laboratory orders are on hold per Dr. Manzano.
[2024-10-19 12:21] LABS: Glucose - Point of Care 161 mg/dl (70-99)
--- NOTE | 2024-10-19 13:10 | CM ---
Addendum entered by Marsha Hernandez 10/19/24 14:06:
CM Consult completed. Referral sent via [facility] and [facility] to Hospice
Original Note:
Initial assessment completed with sister/POA, Lindsey Valentin, via phone (home # [phone]; )
Pharmacy verified: [facility] @ [address] [place] [address]
Sister reported that she spoke to patient via phone weekly; recently visited her a week ago; patient's friend called visited yesterday and called 911
Sister stated that patient lived alone and was independent; lived in a one floor apartment; 10 steps up from front door; railings present; patient ambulated with rolling walker; was independent
Was receiving [facility] health/VN/PT services
Per Sister, she plans to discuss treatment plan/comfort measures with Attending
Plan: to be determined pending hospital course; CM will monitor and support
--- NOTE | 2024-10-19 13:24 | PTCARENOTE ---
Notified by Dr. Solomon via TT verifying comfort measures.
--- NOTE | 2024-10-19 13:35 | PTCARENOTE ---
Pt moaning in pain, guarding her abdomen. Upon my gentle palpation of her abdomen she moaned even louder. Medicated for pain.
--- NOTE | 2024-10-19 13:52 | W.PN.UPDATE ---
Update Note
Progress Note Update
Called Brandon Valentin (Chula), who is Cookie's sister and is legal POA. Confirmed she would like to stop all life-saving medications and interventions and transition her to comfort measures. Confirmed she is DNR.
Chula provided her brother's contact number, Nicola Valentin, and asked if we could call him too. I called Nicola. Initially, he did not respond but I left a voice message.
I called him a second time after he had reached out to the hospital. I provided information comfort measures and DNR. I explained that Cookie has been transferred to comfort care and he was agreeable.
--- NOTE | 2024-10-19 14:27 | HOSPNOTE ---
Patient will remain on comfort measures and be transferred out of the ICU. Family is in agreement to allow the patient to pass peacefully. Will continue to follow.
[2024-10-19] MEDS: MORPHINE SULFATE 2 MG IV ×5 (14:33→22:43)
--- NOTE | 2024-10-19 14:56 | PTCARENOTE ---
Family Sue notified that comfort measures already in place. She was informed of the plan of care and that she would be notified if there are any changes.
[2024-10-19] MEDS: ATIVAN 1 MG IV ×3 (15:48→23:55)
--- NOTE | 2024-10-19 18:26 | PTCARENOTE ---
[facility] notified of withdrawal of care. Spoke with [facility] premium service representative Maria A Cotter, awaiting call back.
--- NOTE | 2024-10-19 18:39 | PTCARENOTE ---
Per Vandana Lei pt is not medically suitable @ this time. Recommended we call back with cardiac .
--- NOTE | 2024-10-19 19:29 | TRANSFER ---
Report called to RN for room 2123. Pt to be transferred via bed with indwelling Lee catheter. Pt's sister Chula notified of the transfer.
--- NOTE | 2024-10-19 19:45 | TRANSFER ---
Pt received from ICU. Escorted in the bed by the RN. Pt placed on @N unit bed with static Overlay in place. Pt was displaying signs of pain during transition. Respirations are irregular with supraclavicular retractions. PRN medication administered
( See MAR). Belongings at bedside (x3). Sister, Chula, to be informed of the room change by DEPUTY COURT. Lee in place. with stat lock .X IV patent. Wound dressings dry and intact on BL distal lower extremities and on sacrum.
[2024-10-19] MEDS: MORPHINE 100 IV (23:54)
[2024-10-20] MEDS: MORPHINE SULFATE 2 MG IV ×7 (00:51→04:16)
[2024-10-20] MEDS: MORPHINE SULFATE 4 MG IV ×4 (04:56→09:03)
[2024-10-20 07:23] VITALS: BP 88/44
--- NOTE | 2024-10-20 11:55 | PTCARENOTE ---
Patient observed without respirations or pulse - MD notified to pronounce. Sister, who had just arrived to visit, was given the news and provided emotional support.
--- NOTE | 2024-10-20 12:29 | W.PN.DEATH ---
Addendum entered and electronically signed by Jose Juan Trejo MD 10/20/24 23:53:
Read, reviewed, and agree. See same day progress note for additional details. COD is Septic Shock.
Nicanor Trejo MD
Original Note:
Documented by User: Mary Jo Solomon MD, Resident 10/20/24 17:25
Pronouncement of
-
Called to see patient to pronounce.
No spontaneous heart tones or respirations noted.
Pupils not reactive to light.
Patient not responsive to verbal stimuli.
Patient is pronounced .
Time of : 11:52
Date of : 10/20/24
Cause of : Sepsis
Family Notified: Yes

Documented by User: Vega Murdock MD, Resident 10/20/24 17:25
Pronouncement of
-
Cause of : Septic shock
--- NOTE | 2024-10-20 13:35 | W.PN.HOSP.TC ---
Addendum entered and electronically signed by Jose Juan Trejo MD 10/20/24 23:51:
Attending Addendum-
I saw and evaluated the patient. I reviewed the resident�s note and agree with findings and plan as documented in the resident�s note. Sub: Patient unresponsive. appears comfortable agnoally breathing. Full 12 point ROS attempted and negative except
as documented Exam: Vitals reviewed in chart GEN-NAD Heart RRR lungs crackles at bases dietz in place
Plan:
Problems-
-Septic Shock- no definitive source probable LLE wound
-DKA
-Pseudohyponatremia
-TIFFANY on CKD IIIa
-non ischemic myocardial injury
-hyperkalemia
-Severe Leukocytosis
-History of CAD and PAD with coronary stent and LLE stents.
-Paroxysmal Atrial Fibrillation
-Chronic HFrEF-LVEF = 30-35%.
-Hyperthyroidism
-Anemia of Chronic Disease
-Peritoneal Carcinomatosis
Plan:
DC all life sustaining meds ie hep gtt, insulin gtt, Levophed s/p multiple conversations with POA and family
cont comfort care measures morphine ativan including 02 for comfort, consult hospice, actively dying
CODE DNR
S/P seeing patient in AM called to pronounce patient with Dr. Solomon see pronouncement note for additional information
Time spent pronounce seeing patient reviewing with resident in person and notes d/w devyn ACUNA- 33 minutes
Original Note:
Today's Communication/Plan
-
Continue current comfort measures
Assessment / Plan
Assessment / Plan
Patient transferred to comfort measure yesterday. Receiving standing IV Morphine @4 and Ativan 1mg Q2h PRN. Hospice consulted. Will likely pass in 24 hours
All life sustaining meds including hep gtt, insulin gtt, Levophed wre dc'ed after multiple conversations with POA and family
CODE DNR
-
Code Status: DNR
Anticipated Discharge: Today
Subjective/Interval History
-
Date of Service: October 20, 2024
Visited patient at 8:30 am.Progress note written later.
Patient is not responding to verbal commands. Is sleeping comfortably.
Objective Data
-
Vital Signs:
Vital Signs
Temp Pulse Resp BP Pulse Ox
99.8 F 77 10 88/44 99
10/20/24 07:23 10/20/24 07:23 10/20/24 08:19 10/20/24 07:23 10/20/24 08:07
I&O
10/19/24 10/20/24 10/21/24
06:59 06:59 06:59
Intake Total 1241 / 1421.5 1242.0 / 1242.0
Output Total 345 / 348 468 / 468
Balance 896 / 1073.5 774.0 / 774.0
Review of Systems
-
Unable to obtain full review of systems at this time due to: Patient Non-verbal
Physical Exam
-
Respiratory: Clear to Auscultation
Cardiac: Regular Rhythm and S1/S2
GI: Soft and Nondistended
Skin: Rash (rt leg changes with probable cellulitis significantly less today, chronic wounds, erythema and subcutaneous swelling, Rt lower leg tissue remains warm, red and tender)
Neuro: Awake, Alert and Oriented
--- NOTE | 2024-10-20 17:26 | W.DCSUMMARY ---
Addendum entered and electronically signed by Jose Juan Trejo MD 10/20/24 23:46:
Read, reviewed, and agree. See same day progress note for additional details.
Nicanor Trejo MD
Original Note:
Documented by User: Mary Jo Solomon MD, Resident 10/20/24 17:58
Discharge Summary
Discharge Data
Date of Admission: 10/18/24
Date of Discharge: 10/20/24
-
Pending Results: No
Hospital Course
Patient was an 88yo F with PMH significant for ASCVD, A-Fib, peritoneal carcinomatosis, chronic anemia and HFrEF who was brought to ED. She was complaining of dry mouth and leg pain on arrival, and noted to be weak and lethargic. She was
hypothermic, tachycardic and tachypneic on admission with markedly elevated WBC count. Also, labs showed marked hyperglycemia with high anion gap acidosis, hyperkalemia, and ketonuria. Troponin markedly elevated. She was admitted to ICU with the
impression of septic shock + DKA and was stated on heparin drip, insulin drip, levofed, IV fluids and Zocyn + Vanco. Blood cultures were sent. Patient remained lethargic and non-verbal in ICU. Vascular surgery was consulted for evaluation of left
lower extremity wound possibly contributing to sepsis and they recommend [id number] amputation for source control but no guarantee that she could survive the surgery. After Dr. Jackson's discussion with friend, Kandace, and sister, Chula (who was
the POA), Kandace and Chula decided to hold off surgery and leaned towards comfort care. The hospitalist team reached out to Chula Valentin and Nicola Valentin and they confirmed that they are agreeable to transitioning patient to comfort measures.
Hospice consult was placed and patient was transferred to comfort care. All life sustaining meds including hep gtt, insulin gtt, and Levophed were discontinued. Patient received standing IV Morphine and Ativan 1mg Q2h PRN while in comfort care. She
peacefully on 10/20/24 at 11:52 am.
Discharge Plan
-
Patient Disposition:
Date/Time
Date/Time: 10/20/24 11:52
Discharge Date and Time
Discharge Date/Time: 10/20/24 11:52
Print Language: ITALIAN

Documented by User: Jose Juan Trejo MD 10/20/24 23:45
Discharge Summary
Discharge Data
Date of Admission: 10/18/24
Date of Discharge: 10/20/24
Discharge Plan
-
Patient Disposition:
Date/Time
Date/Time: 10/20/24 11:52
Discharge Date and Time
Discharge Date/Time: 10/20/24 11:52
Print Language: ITALIAN
== END 2024-10-20 11:52 | disposition expired | DRG 871 ==
LOC: 2 NORTH 22:07
PROVIDERS: ADMITTING PHYSICIAN Hospitalist; ATTENDING PHYSICIAN Family Medicine; EMERGENCY PHYSICIAN Emergency Medicine; OTHER PHYSICIAN Internal Medicine Critical Care Medicine; OTHER PHYSICIAN Surgery Vascular Surgery
DX: A41.9 Sepsis, unspecified organism (principal); E11.10 Type 2 diabetes mellitus with ketoacidosis without coma; R65.21 Severe sepsis with septic shock; L03.116 Cellulitis of left lower limb; L03.115 Cellulitis of right lower limb; C78.6 Secondary malignant neoplasm of retroperitoneum and peritoneum; I13.0 Hypertensive heart and chronic kidney disease with heart failure and stage 1 through stage 4 chronic kidney disease, or unspecified chronic kidney disease; I50.22 Chronic systolic (congestive) heart failure; I42.2 Other hypertrophic cardiomyopathy; N17.9 Acute kidney failure, unspecified; I5A Non-ischemic myocardial injury (non-traumatic); I44.7 Left bundle-branch block, unspecified; E11.22 Type 2 diabetes mellitus with diabetic chronic kidney disease; E86.0 Dehydration; I25.10 Atherosclerotic heart disease of native coronary artery without angina pectoris; E11.51 Type 2 diabetes mellitus with diabetic peripheral angiopathy without gangrene; Z95.5 Presence of coronary angioplasty implant and graft; I48.0 Paroxysmal atrial fibrillation; J44.9 Chronic obstructive pulmonary disease, unspecified; E03.9 Hypothyroidism, unspecified; K21.9 Gastro-esophageal reflux disease without esophagitis; F32.A Depression, unspecified; F41.9 Anxiety disorder, unspecified; Z87.891 Personal history of nicotine dependence; Z88.1 Allergy status to other antibiotic agents; Z79.4 Long term (current) use of insulin; Z79.02 Long term (current) use of antithrombotics/antiplatelets; Z79.01 Long term (current) use of anticoagulants; E87.5 Hyperkalemia; R68.0 Hypothermia, not associated with low environmental temperature; D63.1 Anemia in chronic kidney disease; Z66 Do not resuscitate; I25.2 Old myocardial infarction; E78.00 Pure hypercholesterolemia, unspecified; Z79.899 Other long term (current) drug therapy; D50.9 Iron deficiency anemia, unspecified; D69.6 Thrombocytopenia, unspecified; Z51.5 Encounter for palliative care; Z11.52 Encounter for screening for COVID-19; N18.31 Chronic kidney disease, stage 3a
CPT/HCPCS: 71045; 74176; 80048; 80053; 81003; 81015; 82010; 82248; 82805; 82947; 82962; 83605; 83735; 84100; 84132; 84443; 84484; 85025; 85027; 85610; 85730; 87040; 87070; 87147; 87149; 87205; 87502; 87811; 93005; 93922; 93925; 96365; 99285